=== PATIENT | male | born 1950 | race Caucasian/White ===

== ENCOUNTER 2019-09-02 12:05 | Emergency (ER) | payer OTHER ==
--- OUTSIDE RECORDS SUMMARY | 2019-09-02 12:07 | XMS REPORT | Summary of Care ---
:1950 Author Organization [facility] - [facility] Address [address] [place] [address] Care Team Providers Name Role Phone Pcp, Does Not Have A Primary Care Provider Karlene Bazan PAC Unavailable Allegra Vargas MD Unavailable Reason for Visit Reason Comments Follow-up right knee osteoarthritis (Routine) Status Reason Specialty Diagnoses / Referred By Referred To Procedures Contact Contact Authorized PA-PHYSICIAN Diagnoses Unilateral primary osteoarthritis, right knee 1st orthovisc R knee Ang-Orthopedic Wu Bazan SPRING BENDER / Procedures CONSULT/REFERRAL ORTHOPAEDIC SURGERY [place] ORTHOVISC INJ PER DOSE [place] ARTHROCENTESIS ASPIR&/INJ MAJOR JT/BURSA W/O US FOLLOW-UP VISIT [address] [facility] S, PAC Orthopedic [place], [address] Surgery [address] [facility] C [address] [place] Phone: [phone] Phone: Encounter Details Date Type Department Care Team Description 11/30/2018 Office Visit [facility] Wu Bazan S, Primary oste oarthritis Orthopaedic Surgery- PAC of right knee (Primary [place] [address] [place] [address]x) 2[address] [facility], [facility] [place] [address] [place] [phone] Allergies No Known Allergiesdocumented as of this encounter (statuses as of 11/30/2018) Medications Medication Sig Dispensed Refills Start Date End Date Status atorvastatin 80 mg Take 40 mg by 0 11/18/2015 Active tablet mouth. gabapentin 300 mg Take 300 mg by 0 Active capsule mouth. HUMULIN R U-500, CONC, GIVE 80 UNITS 6 05/01/2016 Active KWIKPEN 500 unit/mL (3 BEFORE BREAKFAST mL) InPn AND DINNER AND INCREASE DIRECTED TDD 220 lisinopril 20 mg tablet Take 20 mg by 0 Active mouth. sennosides-docusate Take 2 tablets by 0 Active sodium 8.6-50 mg per mouth. tablet traMADOL 50 mg tablet Take 50 mg by 0 Active mouth. CIALIS 20 mg tablet TAKE 1 TABLET BY 5 04/30/2016 Active ORAL ROUTE EVERY WEEK NEEDED DULAGLUTIDE (TRULICITY inject under the 0 Active SC) skin weekly. LIRAGLUTIDE (VICTOZA inject under the 0 Active 3-JOLENE SC) skin. Diclofenac Sodium 1 % APPLY 2-4 GRAMS 1 Tube 1 08/04/2018 Active gel TO AFFECTED AREA FOUR TIMES A DAY DICLOFENAC SODIUM 1 % APPLY 2-4 GRAMS 100 g 1 08/06/2018 Active gelIndications: Primary TO AFFECTED AREA osteoarthritis of right FOUR TIMES A DAY knee diclofenac 75 mg EC Take 1 tablet by 60 tablet 1 10/13/2018 Active tablet mouth 2 (two) times daily with meals. Hospital, Clinic, or Ordered Dose Route Frequency Start Date End D ate Status Other Facility Administered Medication sodium hyaluronate 30 mg Intra-articu ONCE 11/30/2018 019 Ended (viscosup) (ORTHOVISC) injection 30 mg documented as of this encounter (statuses as of 11/30/2018) Active Problems Problem Noted Date Acute gastric ulcer 11/18/2015 Chronic kidney disease, stage II (mild) 11/18/2015 Type 2 diabetes mellitus 11/17/2015 Hyperlipidemia 11/17/2015 Hypertension 11/17/2015 Upper gastrointestinal hemorrhage 11/17/2015 documented as of this encounter (statuses as of 11/30/2018) Social History Tobacco Use Types Packs/Day Years Used Date Never Smoker Smokeless Tobacco: Never Used Alcohol Use Drinks/Week oz/Week Comments Not Asked 0 Standard drinks or equivalent 0.0 Sex Assigned at Date Recorded Not on file Job Start Date Occupation Industry Not on file Not on file Not on file Travel History Travel Start Travel End No recent travel history available. documented as of this encounter Last Filed Vital Signs Vital Sign Reading Time Taken Comments Blood Pressure - - Pulse - - Temperature - - Respiratory Rate - - Oxygen Saturation - - Inhaled Oxygen Concentration - - Weight 140.6 kg (310 lb) 11/30/2018 3:16 PM CDT Height 182.9 cm (6') 11/30/2018 3:16 PM CDT Body Mass Index 42.04 11/30/2018 3:16 PM CDT documented in this encounter Progress Notes Wu Bazan, PAC - 11/30/2018 3:30 PM CDT Cc: Chief Complaint Patient presents with Follow-up right knee osteoarthritis Here for 2nd orthovisc injection to the right knee. Jazmine Veras 11/30/2018 3:17 PM Brayan Carrion is a 68 year old male. HPI Allergies Brayan has No Known Allergies. Medications Outpatient Medications Prior to Visit Medication Sig Dispense Refill diclofenac 75 mg EC tablet Take 1 tablet by mouth 2 (two) times daily with meals. 60 tablet 1 DICLOFENAC SODIUM 1 % gel APPLY 2-4 GRAMS TO AFFECTED AREA FOUR TIMES A DAY 100 g 1 Diclofenac Sodium 1 % gel APPLY 2-4 GRAMS TO AFFECTED AREA FOUR TIMES A DAY 1 Tube 1 LIRAGLUTIDE (VICTOZA 3-JOLEEN SC) inject under the skin. atorvastatin 80 mg tablet Take 40 mg by mouth. CIALIS 20 mg tablet TAKE 1 TABLET BY ORAL ROUTE EVERY WEEK NEEDED 5 DULAGLUTIDE (TRULICITY SC) inject under the skin weekly. gabapentin 300 mg capsule Take 300 mg by mouth. HUMULIN R U-500, CONC, KWIKPEN 500 unit/mL (3 mL) InPn GIVE 80 UNITS BEFORE BREAKFAST AND DINNERAND INCREASE DIRECTED TDD 220 6 lisinopril 20 mg tablet Take 20 mg by mouth. sennosides-docusate sodium 8.6-50 mg per tablet Take 2 tablets by mouth. traMADOL 50 mg tablet Take 50 mg by mouth. No facility-administered medications prior to visit. Histories Past Medical History: Diagnosis Date Diabetes mellitus Hyperlipidemia Hypertension Past Surgical History: Procedure Laterality Date JOINT SURGERY REPAIR ROTATOR CUFF,ACUTE Bilateral Social History Socioeconomic History Marital status: Spouse name: Not on file Number of children: Not on file Years of education: Not on file Highest education level: Not on file Occupational History Not on file Social Needs Financial resource strain: Not on file Food insecurity: Worry: Not on file Inability: Not on file Transportation needs: Medical: Not on file Non-medical: Not on file Tobacco Use Smoking status: Never Smoker Smokeless tobacco: Never Used Substance and Sexual Activity Alcohol use: Not on file Drug use: Not on file Sexual activity: Not on file Lifestyle Physical activity: Days per week: Not on file Minutes per session: Not on file Stress: Not on file Relationships Social connections: Talks on phone: Not on file Gets together: Not on file Attends taoist service: Not on file Active member of club or organization: Not on file Attends meetings of clubs or organizations: Not on file Relationship status: Not on file Intimate partner violence: Fear of current or ex partner: Not on file Emotionally abused: Not on file Physically abused: Not on file Forced sexual activity: Not on file Other Topics Concern Not on file Social History Narrative Not on file Family History Problem Relation Age of Onset No Significant Medical Problems Mother No Significant Medical Problems Father Review of Systems Constitutional: Negative. HENT: Negative. Eyes: Negative. Respiratory: Negative. Breasts: Negative. Cardiovascular: Negative. Gastrointestinal: Negative. Genitourinary: Negative. Musculoskeletal: Positive for joint swelling. Skin: Negative. Neurological: Negative. Psychiatric/Behavioral: Negative. Endocrine: Endocrine negative Vital Signs Ht 72" (182.9 cm) | Wt 140.6 kg (310 lb) | BMI 42.04 kg/m Physical Exam Assessment/Plan Primary osteoarthritis of right knee (primary encounter diagnosis) Comment: 2nd of three orthovisc injection series Plan: The knee was examined and marked with ultrasound guidance. The skin was then prepped thoroughly 3 times in a bull's-eye fashion with Betadine and then cleaned with alcohol allowing the alcohol tosoak for 30 seconds. Ethyl chloride anesthetic spray was used to provide cryo-anesthesia. Under ultrasound guidance the needle was advanced into the knee joint behind the fat pad and orthovisc prefilled syringe was injected. The site was cleansed with alcohol then dried with a sterile 4 x 4 and a sterile Band-Aid was applied. Patient tolerated procedure well, no reactions were noted. This is a large joint/intraarticular/intramuscular injection. Post Injection Recommendations but not required: 1. Avoid physical activity for 48 hours following an injection to keep the knee from swelling. 2. Ice your knee if you have any mild pain or swelling near the injection site. 3. Avoid standing on your feet for more than 1 hour at a time during the first 48 hours following the injection. documented in this encounter Plan of Treatment Health Maintenance Due Date Last Done Comments HEPATITIS C (HCV) SCREEN 1950 HgA1C 1951 CREATININE (SERUM) 1961 EYE EXAM 1961 LDL-C 1961 URINE MICROALBUMIN 1961 FOOT EXAM 1969 DTaP,Tdap,and Td Vaccines (1 - Tdap) 1970 COLONOSCOPY 2001 Zoster Recombinant Vaccine (SHINGRIX) (1 of 2) 2001 Medicare Wellness Visit 2016 PNEUMOCOCCAL VACCINES 65+ (1 of 2 - PCV13) 2016 INFLUENZA VACCINE 01/02/2019 documented as of this encounter Results Not on filedocumented in this encounter Visit Diagnoses Diagnosis Primary osteoarthritis of right knee - P rimary Primary localized osteoarthrosis, lower leg documented in this encounter Administered Medications Medication Order MAR Action Action Date Dose Rate Site sodium hyaluronate (viscosup) Given 11/30/2018 3:23 PM CDT 30 m g Right Knee (ORTHOVISC) injection 30 mg 30 mg, Intra-articular, ONCE, 1 dose, Thu11/30/18 at 1630, Routine documented in this encounter Insurance Payer Benefit Plan Subscriber ID Effective Phone Address Typ e / Group Dates AETNA - AETNA [id number] 2016-Prese P O BOX Medic are Adv MANAGED MEDICARE ADV nt [id number] [place] [address] documented as of this encounter
--- OUTSIDE RECORDS SUMMARY | 2019-09-02 12:07 | XMS REPORT ---
:1950 Author Organization [facility] t Address [address] [place] [address] Dr. Raphael [address] [place] [address] Care Team Providers Name Role Phone Unavailable Unavailable Unavailable Problems This patient has no known problems. Allergies, Adverse Reactions, Alerts This patient has no known allergies or adverse reactions. Medications This patient has no known medications.
--- OUTSIDE RECORDS SUMMARY | 2019-09-02 12:07 | XMS REPORT | Summary of Care ---
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 Wu Bazan S, Primary oste oarthritis Orthopaedic Surgery- PAC of right knee (Primary [place] [address] [place] [address]) 2[address] [facility], [facility] [place] [address] [place] [phone] Allergies No Known Allergiesdocumented [...] LIRAGLUTIDE (VICTOZA inject under the 0 Active 3-JOLEEN SC) skin. Diclofenac Sodium 1 % APPLY [...] file Gets together: Not on file Attends scientologist service: Not on file Active member of [...] documented in this encounter Plan of Treatment Date Type Specialty Care Team Description 12/07/2018 Office Visit Orthopedic Surgery Wu Bazan PAC [facility] [place] [address] Health Maintenance Due Date Last Done Comments [...] mg 30 mg, Intra-articular, ONCE, 1 dose, 11/30/18 at 1630, Routine documented in this encounter Insurance Payer Benefit Plan Subscriber ID Effective Phone Address Typ e / Group Dates AETNA - AETNA [id number] 2016-Prese P O BOX Medic are Adv MANAGED MEDICARE ADV nt [id number] [place] [address] documented as of this encounter
--- OUTSIDE RECORDS SUMMARY | 2019-09-02 12:08 | XMS REPORT | Summary of Care ---
:1950 Author Organization [facility] - Health Address [address] [place] [address] Care Team Providers Name Role Phone Pcp, Does Not Have A Primary Care Provider Karlene Bazan PAC Unavailable Allegra Vargas MD Unavailable Encounter Details Date Type Department Care Team Description 05/17/2019 Orders Only [facility] Doctor Unassigned, No [address] [facility] [place] [address] [address] [place] [address] Allergies No Known Allergiesdocumented as of this encounter (statuses as of 06/13/2019) Medications Medication Sig Dispensed Refills Start Date End Date Status atorvastatin 80 mg Take 40 mg by 0 11/18/2015 Active tablet mouth. gabapentin 300 mg Take 300 mg by 0 Active capsule mouth. HUMULIN R U-500, GIVE 80 UNITS 6 05/01/2016 Active CONC, KWIKPEN 500 BEFORE BREAKFAST unit/mL (3 mL) InPn AND DINNER AND INCREASE DIRECTED TDD 220 lisinopril 20 mg Take 20 mg by 0 Active tablet mouth. sennosides-docusate Take 2 tablets by 0 Active sodium 8.6-50 mg per mouth. tablet traMADOL 50 mg tablet Take 50 mg by 0 Active mouth. CIALIS 20 mg tablet TAKE 1 TABLET BY 5 04/30/2016 Active ORAL ROUTE EVERY WEEK NEEDED DULAGLUTIDE inject under the 0 Active (TRULICITY SC) skin weekly. LIRAGLUTIDE (VICTOZA inject under the 0 Active 3-JOLEEN SC) skin. Diclofenac Sodium 1 % Apply to area(s) 100 g 1 04/29/2019 07/28/2019 Active gel daily for 90 days. APPLY 2- 4 GRAMS TO AREA FOUR TIMES A DAY documented as of this encounter (statuses as of 06/13/2019) Active Problems Problem Noted Date Acute gastric ulcer 11/18/2015 Chronic kidney disease, stage II (mild) 11/18/2015 Type 2 diabetes mellitus 11/17/2015 Hyperlipidemia 11/17/2015 Hypertension 11/17/2015 Upper gastrointestinal hemorrhage 11/17/2015 documented as of this encounter (statuses as of 06/13/2019) Social History Tobacco Use Types Packs/Day Years [...] of this encounter Last Filed Vital Signs Not on filedocumented in this encounter Plan of Treatment Health Maintenance Due Date Last Done Comments HEPATITIS C (HCV) SCREEN 1950 HgA1C 1951 CREATININE (SERUM) 1961 EYE EXAM 1961 LDL-C 1961 URINE MICROALBUMIN 1961 DTaP,Tdap,and Td Vaccines (1 - Tdap) 1962 FOOT EXAM 1969 COLONOSCOPY 2001 Zoster Recombinant Vaccine (SHINGRIX) (1 of 2) 2001 Medicare Wellness Visit 2016 PNEUMOCOCCAL VACCINES 65+ (1 of 2 - PCV13) 2016 INFLUENZA VACCINE (#1) 2019 documented as of this encounter Procedures Procedure Name Priority Date/Time Associated Diagnosis Comme nts 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
--- OUTSIDE RECORDS SUMMARY | 2019-09-02 12:08 | XMS REPORT | Summary of Care ---
:1950 Author Organization [facility] - Health Address [address] [place] [address] Care Team Providers Name Role Phone Pcp, Does Not Have A Primary Care Provider Karlene Bazan PAC Unavailable Allegra Vargas MD Unavailable Encounter Details Date Type Department Care Team Description 05/23/2019 Orders Only [facility] Doctor Unassigned, No 301 [facility] [place] [address] [address] [place] [address] Allergies No Known Allergiesdocumented as of this encounter (statuses as of 06/01/2019) Medications Medication Sig Dispensed Refills Start Date [...] as of this encounter (statuses as of 06/01/2019) Active Problems Problem Noted Date Acute gastric ulcer 11/18/2015 Chronic kidney disease, stage II (mild) 11/18/2015 Type 2 diabetes mellitus 11/17/2015 Hyperlipidemia 11/17/2015 Hypertension 11/17/2015 Upper gastrointestinal hemorrhage 11/17/2015 documented as of this encounter (statuses as of 06/01/2019) Social History Tobacco Use Types Packs/Day Years [...] filedocumented in this encounter Plan of Treatment Date Type Specialty Care Team Description 06/03/2019 Office Visit Orthopedic Surgery Kathleen Vargas MD [address] [place] [phone] Health Maintenance Due Date Last Done [...] Name Priority Date/Time Associated Diagnosis Comme nts MEDICATION CORRESPONDENCE 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
--- OUTSIDE RECORDS SUMMARY | 2019-09-02 12:08 | XMS REPORT | Summary of Care ---
:[address] [facility] Address [address] [place] [address] Care Team Providers Name Role Phone Pcp, Does Not Have A Primary Care Provider Karlene Bazan PAC Unavailable Allegra Vargas MD Unavailable Reason for Visit Reason Comments Refill Request Encounter Details Date Type Department Care Team Description 12/16/2018 Refill [facility] Orthopaedic George Vargas MD Refill Request Surgery- [place] [address] [facility], [place] [address] [place] [address] [place] [address] [phone] Allergies No Known Allergiesdocumented as of this encounter (statuses as of 12/16/2018) Medications Medication Sig Dispensed Refills Start Date End Date Status atorvastatin 80 mg Take 40 mg by 0 11/18/2015 Active tablet mouth. gabapentin 300 mg Take 300 mg by 0 Active capsule mouth. HUMULIN R U-500, GIVE 80 UNITS 6 05/01/2016 Active CONC, KWIKPEN 500 BEFORE unit/mL (3 mL) InPn BREAKFAST AND DINNER AND INCREASE DIRECTED TDD 220 lisinopril 20 mg Take 20 mg by 0 Active tablet mouth. sennosides-docusate Take 2 tablets 0 Active sodium 8.6-50 mg per by mouth. tablet traMADOL 50 mg Take 50 mg by 0 A ctive tablet mouth. CIALIS 20 mg tablet TAKE 1 TABLET 5 04/30/2016 Active BY ORAL ROUTE EVERY WEEK NEEDED DULAGLUTIDE inject under 0 Acti ve (TRULICITY SC) the skin weekly. LIRAGLUTIDE (VICTOZA inject under 0 Active 3-JOLEEN SC) the skin. DICLOFENAC SODIUM 1 APPLY 2-4 GRAMS 100 g 1 08/06/2018 Active % gelIndications: TO AFFECTED Primary AREA FOUR TIMES osteoarthritis of A DAY right knee diclofenac 75 mg EC Take 1 tablet 60 tablet 1 10/13/2018 Active tablet by mouth 2 (two) times daily with meals. DICLOFENAC SODIUM 1 APPLY 2-4 GRAMS 1 Tube 1 12/16/2018 Active % gelIndications: TO AFFECTED Primary AREA FOUR TIMES osteoarthritis of A DAY right knee Diclofenac Sodium 1 APPLY 2-4 GRAMS 1 Tube 1 08/04/2018 Discontinued % gel TO AFFECTED 9 AREA FOUR TIMES A DAY documented as of this encounter (statuses as of 12/16/2018) Active Problems Problem Noted Date Acute gastric ulcer 11/18/2015 Chronic kidney disease, stage II (mild) 11/18/2015 Type 2 diabetes mellitus 11/17/2015 Hyperlipidemia 11/17/2015 Hypertension 11/17/2015 Upper gastrointestinal hemorrhage 11/17/2015 documented as of this encounter (statuses as of 12/16/2018) Social History Tobacco Use Types Packs/Day Years [...] (#1) 2019 documented as of this encounter Results Not on filedocumented in this encounter Visit Diagnoses Diagnosis Primary osteoarthritis of right knee - P rimary Primary localized osteoarthrosis, lower leg documented in this encounter Insurance Payer Benefit Plan Subscriber ID Effective Phone Address Typ e / Group Dates AETNA - AETNA [id number] 2016-Prese P O BOX Medic are Adv MANAGED MEDICARE ADV nt [id number] [place] [address] documented as of this encounter
--- OUTSIDE RECORDS SUMMARY | 2019-09-02 12:08 | XMS REPORT | Summary of Care ---
:[address] [facility] - [facility] Address [address] [place] [address] Care Team Providers Name Role Phone Pcp, Does Not Have A Primary Care Provider Karlene Bazan PAC Unavailable Allegra Vargas MD Unavailable Reason for Visit Reason Comments Follow-up Knee Pain INJECTION 3rd orthovisc injection righ t knee (Routine) Status Reason Specialty Diagnoses / Procedures Referred By R eferred To Contact Contact Closed PA-PHYSICIAN Diagnoses Unilateral primary osteoarthritis, right knee 1st orthovisc R knee Ang-Orthopedic Wu Bazan, RELAY MAN / Procedures CONSULT/REFERRAL ORTHOPAEDIC SURGERY [place] ORTHOVISC INJ PER DOSE [place] ARTHROCENTESIS ASPIR&/INJ MAJOR JT/BURSA W/O US FOLLOW-UP VISIT 2[address] [facility] Orthopedic Surgery [place], [facility] [address] [facility] [place] [phone] Phone: Fax: Encounter Details Date Type Department Care Team Description 12/07/2018 Office Visit [facility] Wu Bazan, Primary oste oarthritis Orthopaedic Surgery- PAC of right knee (Primary [place] [address]) [address] [facility] [address] [facility] [address] [facility] [place] [phone] Allergies No Known Allergiesdocumented as of this encounter (statuses as of 12/07/2018) Medications Medication Sig Dispensed Refills Start Date [...] Medication sodium hyaluronate 30 mg Intra-articu ONCE 12/07/2018 019 Ended (viscosup) (ORTHOVISC) injection 30 mg documented as of this encounter (statuses as of 12/07/2018) Active Problems Problem Noted Date Acute gastric ulcer 11/18/2015 Chronic kidney disease, stage II (mild) 11/18/2015 Type 2 diabetes mellitus 11/17/2015 Hyperlipidemia 11/17/2015 Hypertension 11/17/2015 Upper gastrointestinal hemorrhage 11/17/2015 documented as of this encounter (statuses as of 12/07/2018) Social History Tobacco Use Types Packs/Day Years [...] Sign Reading Time Taken Comments Blood Pressure 106/65 12/07/2018 1:46 PM CDT Pulse - - Temperature - - Respiratory Rate - - Oxygen Saturation - - Inhaled Oxygen Concentration - - Weight 140.6 kg (310 lb) 12/07/2018 1:46 PM CDT Height 182.9 cm (6') 12/07/2018 1:46 PM CDT Body Mass Index 42.04 12/07/2018 1:46 PM CDT documented in this encounter Progress Notes Wu Bazan, PAC - 12/07/2018 2:00 PM CDT Cc: Brayan Carrion is a 68 year old male Chief Complaint Patient presents with Follow-up Knee Pain INJECTION 3rd orthovisc injection right knee Vitals: 12/07/18 1346 Weight: 140.6 kg (310 lb) Height: 72" (182.9 cm) [facility] [address] [place] [address] Patient coming in for 3rd orthovisc injection right knee All Vitals taken, allergies and all medications reviewed, fall risk assessed. CHAZ HSU MA 12/07/2018 1:47 PM Brayan Carrion is a 68 year [...] file Gets together: Not on file Attends amish service: Not on file Active member of [...] of right knee (primary encounter diagnosis) Comment: 3rd of 3 injection series Plan: The knee was examined [...] Action Date Dose Rate Site sodium hyaluronate Given by Provider 12/07/2018 1:48 PM 30 mg Right Knee (viscosup) (ORTHOVISC) CDT injection 30 mg 30 mg, Intra-articular, ONCE, 1 dose, Thu12/07/18 at 1500, Routine documented in this encounter Insurance Payer Benefit Plan Subscriber ID Effective Phone Address Typ e / Group Dates AETNA - AETNA [id number] 2016-Prese P O BOX Medic are Adv MANAGED MEDICARE ADV nt [id number] [place] [address] documented as of this encounter
--- OUTSIDE RECORDS SUMMARY | 2019-09-02 12:08 | XMS REPORT | Summary of Care ---
:1950 Author Organization [facility] - [facility] Address [address] [place] [address] Care Team Providers Name Role Phone Pcp, [...] 1st orthovisc R knee Ang-Orthopedic Wu Bazan, TOWN MARSHAL / Procedures CONSULT/REFERRAL ORTHOPAEDIC SURGERY LA ORTHOVISC INJ PER DOSE LA ARTHROCENTESIS ASPIR&/INJ MAJOR JT/BURSA W/O US FOLLOW-UP VISIT 2[address] [facility] Orthopedic Surgery Joe, [facility] [address] [facility] [place] [phone] Phone: Fax: Encounter Details Date Type Department Care Team Description 12/07/2018 Office Visit [facility] Wu Bazan, Primary oste oarthritis Orthopaedic Surgery- PAC of right knee (Primary [place] [address]) 2326 [facility] Joe [facility] [place] [facility] [place] [phone] Allergies No Known Allergiesdocumented [...] kg (310 lb) Height: 72" (182.9 cm) [facility] [address] [place] [address] Patient coming in for 3rd orthovisc injection [...] file Gets together: Not on file Attends mormonism service: Not on file Active member of [...] e / Group Dates AETNA - AETNA [id number] 2016-Prese P O BOX Medic are Adv MANAGED MEDICARE ADV nt [id number] [place] [address] documented as of this encounter
--- OUTSIDE RECORDS SUMMARY | 2019-09-02 12:09 | XMS REPORT | Summary of Care ---
:1950 Author Organization [facility] Address [address] [place] [address] Care Team Providers Name Role Phone Pcp, Does Not Have A Primary Care Provider Karlene Bazan PAC Unavailable Allegra Vargas MD Unavailable Reason for Visit Reason Comments Refill Request Encounter Details Date Type Department Care Team Description 06/21/2019 Refill [facility] Orthopaedic George Vargas MD Refill Request Surgery- [place] [address] [facility], [place] [address] [place] [address] [phone] Allergies No Known Allergiesdocumented as of this encounter (statuses as of 06/21/2019) Medications Medication Sig Dispensed Refills Start Date [...] under 0 Active 3-JOLEEN SC) the skin. clopidogreL 75 mg Take 75 mg by 0 Active tablet mouth. insulin detemir inject 40 Units 0 Active U-100 100 unit/mL under the skin. injection psyllium (METAMUCIL Take 1 Packet 0 Active FIBER SINGLES) 3.4 by mouth. gram packet diclofenac 75 mg EC TAKE 1 TABLET 0 04/26/2019 Active tablet BY MOUTH TWICE DAILY WITH MEALS FOR 30 DAYS DICLOFENAC SODIUM 1 APPLY 2-4 GRAMS 100 g 0 06/21/2019 Active % gelIndications: TO AFFECTED Primary AREA(S) FOUR osteoarthritis of TIMES A DAY right knee Diclofenac Sodium 1 Apply to 100 g 1 04/29/2019 Discontinued % gel area(s) daily 0 for 90 days. APPLY 2- 4 GRAMS TO AREA FOUR TIMES A DAY documented as of this encounter (statuses as of 06/21/2019) Active Problems Problem Noted Date Acute gastric ulcer 11/18/2015 Chronic kidney disease, stage II (mild) 11/18/2015 Type 2 diabetes mellitus 11/17/2015 Hyperlipidemia 11/17/2015 Hypertension 11/17/2015 Upper gastrointestinal hemorrhage 11/17/2015 documented as of this encounter (statuses as of 06/21/2019) Social History Tobacco Use Types Packs/Day Years [...] Treatment Date Type Specialty Care Team Description 06/27/2019 Office Visit Orthopedic Surgery Wu Bazan, PAC [address] [facility]5 [phone] Health Maintenance Due Date Last Done [...] e / Group Dates AETNA - AETNA [id number] 2016-[place] P O BOX Medic are Adv MANAGED MEDICARE ADV nt [id number] [place] [address] documented as of this encounter
--- OUTSIDE RECORDS SUMMARY | 2019-09-02 12:09 | XMS REPORT | Summary of Care ---
:1950 Author Organization [facility] - [facility] Address [address] [place] [address] Care Team Providers Name Role Phone Pcp, Does Not Have A Primary Care Provider Karlene Bazan PAC Unavailable Allegra Vargas MD Unavailable Reason for Visit Reason Comments Follow-up Hip Pain INJECTION 1st orthovisc injection righ t knee (Routine) Status Reason Specialty Diagnoses / Referred By Referred To Procedures Contact Contact Authorized PA-PHYSICIAN Diagnoses Unilateral primary osteoarthritis, right knee 1st Orthovisc Injection Right Knee George Vargas Brett CORRECTIONAL CORPORAL / Procedures CONSULT/REFERRAL ORTHOPAEDIC SURGERY [place] ORTHOVISC INJ PER DOSE AR ARTHROCENTESIS ASPIR&/INJ MAJOR JT/BURSA W/O US FOLLOW-UP VISIT MD Allegra S, PAC Orthopedic [address] [facility] [address] [place], [place] Phone: [phone] Phone: Encounter Details Date Type Department Care Team Description 06/20/2019 Office Visit [facility] Wu Bazan, Primary oste oarthritis Orthopaedic Surgery- PAC of right knee (Primary [place] [address]) [address] [place] [address] [place] [phone] Allergies No Known Allergiesdocumented as of this encounter (statuses as of 06/21/2019) Medications Medication Sig Dispensed Refills Start Date End Date Status atorvastatin 80 mg Take 40 mg by 0 11/18/2015 Active tablet mouth. gabapentin 300 mg Take 300 mg by 0 Active capsule mouth. HUMULIN R U-500, GIVE 80 UNITS 6 05/01/2016 Active CONC, KWIKPEN 500 BEFORE unit/mL (3 mL) BREAKFAST AND InPn DINNER AND INCREASE DIRECTED TDD 220 lisinopril 20 mg Take 20 mg by 0 Active tablet mouth. sennosides-docusat Take 2 tablets 0 Active e sodium 8.6-50 mg by mouth. per tablet traMADOL 50 mg Take 50 mg by 0 A ctive tablet mouth. CIALIS 20 mg TAKE 1 TABLET 5 04/30/2016 Ac tive tablet BY ORAL ROUTE EVERY WEEK NEEDED DULAGLUTIDE inject under 0 Acti ve (TRULICITY SC) the skin weekly. LIRAGLUTIDE inject under 0 Acti ve (VICTOZA 3-JOLEEN SC) the skin. clopidogreL 75 mg Take 75 mg by 0 Active tablet mouth. insulin detemir inject 40 Units 0 Active U-100 100 unit/mL under the skin. injection psyllium Take 1 Packet 0 Active (METAMUCIL FIBER by mouth. SINGLES) 3.4 gram packet diclofenac 75 mg TAKE 1 TABLET 0 04/26/2019 Active EC tablet BY MOUTH TWICE DAILY WITH MEALS FOR 30 DAYS Diclofenac Sodium Apply to 100 g 1 04/29/2019 06/21/2019 Discontinued 1 % gel area(s) daily for 90 days. APPLY 2- 4 GRAMS TO AREA FOUR TIMES A DAY Hospital, Clinic, or Ordered Dose Route Frequency Start Date End D ate Status Other Facility Administered Medication sodium hyaluronate 30 mg Intra-articu ONCE 06/20/2019 020 Ended (viscosup) (ORTHOVISC) injection 30 mg documented [...] Sign Reading Time Taken Comments Blood Pressure 111/69 06/20/2019 1:27 PM BOWLING ALLEY MANAGER Pulse - - Temperature - - Respiratory Rate - - Oxygen Saturation - - Inhaled Oxygen Concentration - - Weight 140.6 kg (310 lb) 06/20/2019 1:27 PM BOWLING ALLEY MANAGER Height 182.9 cm (6') 06/20/2019 1:27 PM BOWLING ALLEY MANAGER Body Mass Index 42.04 06/20/2019 1:27 PM BOWLING ALLEY MANAGER documented in this encounter Progress Notes Wu Bazan, PAC - 06/20/2019 1:30 PM CST Cc: Chief Complaint Patient presents with Follow-up Hip Pain INJECTION 1st orthovisc injection right knee Brayan Carrion is a 69 year old male. HPI Allergies Brayan has No Known Allergies. Medications Outpatient Medications Prior to Visit Medication Sig Dispense Refill clopidogreL 75 mg tablet Take 75 mg by mouth. diclofenac 75 mg EC tablet TAKE 1 TABLET BY MOUTH TWICE DAILY WITH MEALS FOR 30 DAYS insulin detemir U-100 100 unit/mL injection inject 40 Units under the skin. psyllium (METAMUCIL FIBER SINGLES) 3.4 gram packet Take 1 Packet by mouth. Diclofenac Sodium 1 % gel Apply to area(s) daily for 90 days. APPLY 2- 4 GRAMS TO AREA FOUR TIMES A DAY 100 g 1 LIRAGLUTIDE (VICTOZA 3-JOLEEN SC) inject under [...] file Gets together: Not on file Attends zoroastrian service: Not on file Active member of [...] Significant Medical Problems Father Review of Systems Vital Signs BP 111/69 | Ht 72" (182.9 cm) | Wt 140.6 kg (310 lb) | BMI 42.04 kg/m Physical Exam Assessment/Plan 1. Primary osteoarthritis of right knee Here for first of 3 Orthovisc injections in the right knee The knee was examined and marked with ultrasound guidance. The skin was then prepped thoroughly 3 times in a bull's-eye fashion with Betadine and then cleaned with alcohol allowing the alcohol to soak for 30 seconds. Ethyl chloride anesthetic spray was used to provide cryo-anesthesia. Under ultrasoundguidance the needle was advanced into the knee joint behind the fat pad and Orthovisc prefilled syringe was injected. The site was cleansed with alcohol then dried with a sterile 4 x 4 and a sterile Band-Aid was applied. Patient tolerated procedure well, no reactions were noted. This is a large joint/ intraarticular/intramuscular injection. Post Injection Recommendations but not required: 1. Avoid physical activity for 48 hours following an injection to keep the knee from swelling. 2. Ice your knee if you have any mild pain or swelling near the injection site. 3. Avoid standing on your feet for more than 1 hour at a time during the first 48 hours following the injection. ING ALLEY MANAGER documented in this encounter Plan of Treatment Date Type Specialty Care Team Description 06/27/2019 Office Visit Orthopedic Surgery Wu Bazan PAC [address] [place], [place] [phone] Health Maintenance Due Date [...] Rate Site sodium hyaluronate Given by Provider 06/20/2019 1:29 PM 30 mg Right Knee (viscosup) (ORTHOVISC) BOWLING ALLEY MANAGER injection 30 mg 30 mg, Intra-articular, ONCE, 1 dose, 06/20/19 at 1430, Routine documented in this encounter Insurance Payer Benefit Plan Subscriber ID Effective Phone Address Typ e / Group Dates AETNA - AETNA [id number] 2016-Prese P O BOX Medic are Adv MANAGED MEDICARE ADV nt [id number] [place] [address] documented as of this encounter
--- OUTSIDE RECORDS SUMMARY | 2019-09-02 12:10 | XMS REPORT | Summary of Care ---
:1950 Author Organization [facility] Address [address] [place] [address] Care Team Providers Name Role Phone Pcp, Does Not Have A Primary Care Provider Karlene Bazan PAC Unavailable Allegra Vargas MD Unavailable Reason for Visit Reason Comments Follow-up Follow up visit on right kne e pain, wanting orthovisc (Routine) Status Reason Specialty Diagnoses / Procedures Referred By R eferred To Contact Contact Closed ORT-ORTHOPAEDIC Diagnoses Knee pain requesting orthovisc George Vargas Craig SURGERY / Procedures CONSULT/REFERRAL ORTHOPAEDIC SURGERY [place] ORTHOVISC INJ PER DOSE [place] ARTHROCENTESIS ASPIR&/INJ MAJOR JT/BURSA W/O US FOLLOW-UP VISIT MD Allegra Dinh MD Orthopedic Surgery [address] [place] [phone] Phone: Fax: Encounter Details Date Type Department Care Team Description 06/03/2019 Office Visit [facility] George Vargas Primary oste oarthritis Orthopaedic Surgery- MD Allegra of right knee (Primary [place] [address]) [address] [place] [address] [place] [phone] Allergies No Known Allergiesdocumented as of this encounter (statuses as of 06/22/2019) Medications Medication Sig Dispensed Refills Start Date [...] as of this encounter (statuses as of 06/22/2019) Active Problems Problem Noted Date Acute gastric ulcer 11/18/2015 Chronic kidney disease, stage II (mild) 11/18/2015 Type 2 diabetes mellitus 11/17/2015 Hyperlipidemia 11/17/2015 Hypertension 11/17/2015 Upper gastrointestinal hemorrhage 11/17/2015 documented as of this encounter (statuses as of 06/22/2019) Social History Tobacco Use Types Packs/Day Years [...] Reading Time Taken Comments Blood Pressure 111/69 06/03/2019 8:07 AM WIRE PULLER Pulse 101 06/03/2019 8:07 AM WIRE PULLER Temperature - - Respiratory Rate 18 06/03/2019 8:07 AM WIRE PULLER Oxygen Saturation - - Inhaled Oxygen Concentration - - Weight 140.6 kg (310 lb) 06/03/2019 8:07 AM WIRE PULLER Height 182.9 cm (6') 06/03/2019 8:07 AM WIRE PULLER Body Mass Index 42.04 06/03/2019 8:07 AM WIRE PULLER documented in this encounter Progress Notes George Vargas MD - 06/03/2019 8:00 AM CST Brayan Carrion is a 69 year old male Chief Complaint Patient presents with Follow-up Follow up visit on right knee pain, wanting orthovisc Vitals: 06/03/19 0807 BP: 111/69 BP Location: Left arm Patient Position: Sitting BP CUFF SIZE: Adult Large Pulse: 101 Resp: 18 Weight: 310 lb (140.6 kg) Height: 6' (1.829 m) [facility] [address] [place] [address] All Vitals taken, allergies and all medications reviewed, fall risk assessed. Pain level 8/10. PEEWEE DAVIS MA 06/03/2019 8:10 AM Brayan Carrion is a 69 year old male. Requesting orthovisc injections. He has had them in the past with excellent results. Knee Pain The incident occurred more than 1 week ago. The incident occurred at home. There was no injury mechanism. The pain is present in the right knee. The quality of the pain is described as aching, burning and stabbing. The pain is at a severity of 8/10. The pain is severe. The pain has been worsening since onset. Associated symptoms include an inability to bear weight. He reports no foreign bodies present. The symptoms are aggravated by weight bearing and movement. He has tried acetaminophen, immobilization, ice, NSAIDs, non-weight bearing and rest for the symptoms. The treatment provided no relief. Allergies Brayan has No Known Allergies. Medications [...] file Gets together: Not on file Attends spiritism service: Not on file Active member of [...] Negative. Endocrine: Endocrine negative Vital Signs Ht 6' (1.829 m) | Wt 310 lb (140.6 kg) | BMI 42.04 kg/m Physical Exam Musculoskeletal: Right knee: He exhibits decreased range of motion, swelling, effusion and abnormal alignment. Tenderness found. Medial joint line tenderness noted. General: Well-developed well-nourished oriented to person place and time HEENT normocephalic atraumatic atraumatic pupils equal round reactive to light extraocular muscles intact Cervical thoracic and lumbar spine without focal deficit normal kyphosis and lordosis Chest clear to auscultation and percussion Cardiovascular regular rate and rhythm without gallop rub or murmur soft without organomegaly Normal bowel sounds Neurologic: Focal myotome or dermatomal deficits Vascular: Intact symmetrical bilateral upper and lower extremities Skin without stasis varicosities or breakdown Extremities without cyanosis clubbing or edema Lymphatics no peripheral lymphedema Psych normal mood and affect. Neurovascular function is intact. To include brisk capillary refill warm pink skin active motor function and sensory function intact. Positive crepitus Nursing note and vitals reviewed. Assessment/Plan Diagnosis right knee osteoarthritis Plan will order orthovisc. Follow up when approved. PULLER documented in this encounter Plan of Treatment Date Type Specialty Care Team Description 06/27/2019 Office Visit Orthopedic Surgery Wu Bazan, PAC [address] [place] [phone] Health Maintenance Due Date Last [...] e / Group Dates AETNA - AETNA [id number] 2016-Prese P O BOX Medic are Adv MANAGED MEDICARE ADV nt [id number] [place] [address] documented as of this encounter"
--- OUTSIDE RECORDS SUMMARY | 2019-09-02 12:10 | XMS REPORT | Summary of Care ---
:1950 Author Organization [facility] - [facility] Address [address] [place] [address] Care Team Providers Name Role Phone Pcp, Does Not Have A Primary Care Provider Karlene Bazan PAC Unavailable Allegra Vargas MD Unavailable Reason for Visit Reason Comments Rx Concern/Question Encounter Details Date Type Department Care Team Description 06/20/2019 Telephone [facility] Orthopaedic George Vargas , Rx Concern/Question Surgery- Antione LITTLE 2[address] [facility], [facility] [address] [facility] [place] [address] [place], [place] [phone] [phone] Allergies No Known Allergiesdocumented as of this [...] under the 0 Active 3-JOLEEN SC) skin. clopidogreL 75 mg Take 75 mg by 0 Active tablet mouth. insulin detemir U-100 inject 40 Units 0 Active 100 unit/mL injection under the skin. psyllium (METAMUCIL Take 1 Packet by 0 Active FIBER SINGLES) 3.4 mouth. gram packet diclofenac 75 mg EC TAKE 1 TABLET BY 0 04/26/2019 Active tablet MOUTH TWICE DAILY WITH MEALS FOR 30 DAYS documented as of this encounter (statuses as [...] 06/27/2019 Office Visit Orthopedic Surgery Wu Bazan S, PAC [address] [place] [phone] Health Maintenance Due Date Last Done [...] e / Group Dates AETNA - AETNA [id number] 2016-Prese P O BOX Medic are Adv MANAGED MEDICARE ADV nt [id number] [place] [address] documented as of this encounter
--- OUTSIDE RECORDS SUMMARY | 2019-09-02 12:10 | XMS REPORT | Summary of Care ---
:1950 Author Organization [facility] - [facility] Address [address] [place] [address] Care Team Providers Name Role Phone Pcp, Does Not Have A Primary Care Provider Karlene Bazan Unavailable Allegra Vargas MD Unavailable Encounter Details Date Type Department Care Team Description 06/14/2019 Orders Only [facility] Doctor Unassigned, No [address] [facility] [place] [address] [address] [place] [address] Allergies No Known Allergiesdocumented as of this [...] Team Description 06/27/2019 Office Visit Orthopedic Surgery uW Bazan S, PAC [address] [phone] Health Maintenance Due Date Last Done [...] Associated Diagnosis Comme nts MEDICATION CORRESPONDENCE Routine 06/14/2019 12:01 AM SHODDY MILL WORKER documented in this encounter Results Not on filedocumented in this encounter Insurance Payer Benefit Plan Subscriber ID Effective Phone Address Typ e / Group Dates AETNA - AETNA [id number] 2016-Prese P O BOX Medic are Adv MANAGED MEDICARE ADV nt [id number] [place] [address] documented as of this encounter
--- OUTSIDE RECORDS SUMMARY | 2019-09-02 12:10 | XMS REPORT | Summary of Care ---
:1950 Author Organization [facility] - [facility] Address [address] [place] [address] Care Team Providers Name Role Phone Pcp, [...] Orthovisc Injection Right Knee George Vargas Brett PROGRAM DIRECTOR SCOUTING / Procedures CONSULT/REFERRAL ORTHOPAEDIC SURGERY [place] ORTHOVISC INJ PER DOSE [place] ARTHROCENTESIS ASPIR&/INJ MAJOR JT/BURSA W/O US FOLLOW-UP VISIT MD Allegra S, PAC Orthopedic [address] [facility] [address] [place] Phone: [phone] Phone: Encounter Details Date Type Department Care Team Description 06/20/2019 Office Visit [facility] Wu Bazan, Primary oste oarthritis Orthopaedic Surgery- PAC of right knee (Primary [place] [address]) [address] [place] [place] [address] [place] [phone] Allergies No Known Allergiesdocumented as of this [...] Comments Blood Pressure 111/69 06/20/2019 1:27 PM OUTREACH COORDINATOR Pulse - - Temperature - - Respiratory Rate - - Oxygen Saturation - - Inhaled Oxygen Concentration - - Weight 140.6 kg (310 lb) 06/20/2019 1:27 PM OUTREACH COORDINATOR Height 182.9 cm (6') 06/20/2019 1:27 PM OUTREACH COORDINATOR Body Mass Index 42.04 06/20/2019 1:27 PM OUTREACH COORDINATOR documented in this encounter Progress Notes Wu [...] file Gets together: Not on file Attends sikhism service: Not on file Active member of [...] the first 48 hours following the injection. EACH COORDINATOR documented in this encounter Plan of Treatment Date Type Specialty Care Team Description 06/27/2019 Office Visit Orthopedic Surgery Wu Bazan PAC [address] [place], [place] [phone] Health Maintenance Due Date [...] PM 30 mg Right Knee (viscosup) (ORTHOVISC) OUTREACH COORDINATOR injection 30 mg 30 mg, Intra-articular, ONCE, 1 dose, 06/20/19 at 1430, Routine documented in this encounter Insurance Payer Benefit Plan Subscriber ID Effective Phone Address Typ e / Group Dates AETNA - AETNA [id number] 2016-Prese P O BOX Medic are Adv MANAGED MEDICARE ADV nt [id number] [place] [address] documented as of this encounter
--- OUTSIDE RECORDS SUMMARY | 2019-09-02 12:11 | XMS REPORT | Summary of Care ---
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 / Procedures CONSULT/REFERRAL ORTHOPAEDIC SURGERY [place] ORTHOVISC INJ PER DOSE [place] ARTHROCENTESIS ASPIR&/INJ MAJOR JT/BURSA W/O US FOLLOW-UP VISIT MD Allegra S, PAC Orthopedic [address] [facility] [address] [place], [place] Phone: [phone] Phone: Encounter Details Date Type Department Care Team Description 06/27/2019 Office Visit [facility] Wu Bazan, Primary oste oarthritis Orthopaedic Surgery- PAC of right knee (Primary [place] [address]) [address] [place] [address] [place] [address] Allergies No Known Allergiesdocumented as of this encounter (statuses as of 06/27/2019) Medications Medication Sig Dispensed Refills Start Date [...] Packet by 0 Active FIBER SINGLES) 3.4 gram mouth. packet diclofenac 75 mg EC TAKE 1 TABLET BY 0 04/26/2019 Active tablet MOUTH TWICE DAILY WITH MEALS FOR 30 DAYS DICLOFENAC SODIUM 1 % APPLY 2-4 GRAMS 100 g 0 06/21/2019 Active gelIndications: Primary TO AFFECTED osteoarthritis of right AREA(S) FOUR knee TIMES A DAY Hospital, Clinic, or Ordered Dose Route Frequency Start Date End D ate Status Other Facility Administered Medication sodium hyaluronate 30 mg Intra-articu ONCE 06/27/2019 020 Ended (viscosup) (ORTHOVISC) injection 30 mg documented as of this encounter (statuses as of 06/27/2019) Active Problems Problem Noted Date Acute gastric ulcer 11/18/2015 Chronic kidney disease, stage II (mild) 11/18/2015 Type 2 diabetes mellitus 11/17/2015 Hyperlipidemia 11/17/2015 Hypertension 11/17/2015 Upper gastrointestinal hemorrhage 11/17/2015 documented as of this encounter (statuses as of 06/27/2019) Social History Tobacco Use Types Packs/Day Years [...] - - Weight 140.6 kg (310 lb) 06/27/2019 1:16 PM SOLUTIONS DEVELOPER Height 182.9 cm (6') 06/27/2019 1:16 PM SOLUTIONS DEVELOPER Body Mass Index 42.04 06/27/2019 1:16 PM SOLUTIONS DEVELOPER documented in this encounter Progress Notes Wu Bazan S, PAC - 06/27/2019 1:30 PM CST Brayan Carrion is a 69 year old male Chief Complaint Patient presents with INJECTION 2nd orthovisic injection right knee Vitals: 06/27/19 1316 Weight: 140.6 kg (310 lb) Height: 72" (182.9 cm) [facility] [address] [place] [address] All Vitals taken, allergies and all medications reviewed, fall risk assessed. Pain level 0/10. PEEWEE DAVIS MA 06/27/2019 1:16 PM Brayan Carrion is a 69 year old male. HPI Allergies Brayan has No Known Allergies. Medications Outpatient Medications Prior to Visit Medication Sig Dispense Refill DICLOFENAC SODIUM 1 % gel APPLY 2-4 GRAMS TO AFFECTED AREA(S) FOUR TIMES A DAY 100 g 0 clopidogreL 75 mg tablet Take 75 mg by mouth. diclofenac 75 mg EC tablet TAKE 1 TABLET BY MOUTH TWICE DAILY WITH MEALS FOR 30 DAYS insulin detemir U-100 100 unit/mL injection inject 40 Units under the skin. psyllium (METAMUCIL FIBER SINGLES) 3.4 gram packet Take 1 Packet by mouth. LIRAGLUTIDE (VICTOZA 3-JOLEEN SC) inject under the [...] file Gets together: Not on file Attends restoration service: Not on file Active member of [...] (primary encounter diagnosis) Comment: 2nd of three injection series to the Right knee Plan: The knee was examined and marked [...] the first 48 hours following the injection. TIONS DEVELOPER documented in this encounter Plan of Treatment Date Type Specialty Care Team Description 07/04/2019 Office Visit Orthopedic Surgery Wu Bazan PAC [address] [place], [place] [address] Health Maintenance Due Date Last Done [...] Rate Site sodium hyaluronate Given by Provider 06/27/2019 1:20 PM 30 mg Right Knee (viscosup) (ORTHOVISC) SOLUTIONS DEVELOPER injection 30 mg 30 mg, Intra-articular, ONCE, 1 dose, 06/27/19 at 1430, Routine documented in this encounter Insurance Payer Benefit Plan Subscriber ID Effective Phone Address Typ e / Group Dates AETNA - AETNA [id number] 2016-Prese P O BOX Medic are Adv MANAGED MEDICARE ADV nt [id number] [place] [address] documented as of this encounter
--- OUTSIDE RECORDS SUMMARY | 2019-09-02 12:11 | XMS REPORT | Summary of Care ---
:1950 Author Organization [facility] Address [address] [place] [address] Care Team Providers Name Role Phone Pcp, [...] Craig SURGERY / Procedures CONSULT/REFERRAL ORTHOPAEDIC SURGERY [place] ORTHOVISC INJ PER DOSE [place] ARTHROCENTESIS ASPIR&/INJ MAJOR JT/BURSA W/O US FOLLOW-UP VISIT MD Allegra Dinh MD Orthopedic Surgery [address] [place] [address] [place] [phone] Phone: Fax: Encounter Details Date Type Department Care Team Description 06/03/[address] [facility] George Vargas Primary oste oarthritis Orthopaedic Surgery- MD Allegra of right knee (Primary [place] [address]) [address] [place] [address] [place] [phone] Allergies No Known Allergiesdocumented [...] Comments Blood Pressure 111/69 06/03/2019 8:07 AM FRENCH INSTRUCTOR Pulse 101 06/03/2019 8:07 AM FRENCH INSTRUCTOR Temperature - - Respiratory Rate 18 06/03/2019 8:07 AM FRENCH INSTRUCTOR Oxygen Saturation - - Inhaled Oxygen Concentration - - Weight 140.6 kg (310 lb) 06/03/2019 8:07 AM FRENCH INSTRUCTOR Height 182.9 cm (6') 06/03/2019 8:07 AM FRENCH INSTRUCTOR Body Mass Index 42.04 06/03/2019 8:07 AM FRENCH INSTRUCTOR documented in this encounter Progress Notes George [...] lb (140.6 kg) Height: 6' (1.829 m) [facility] [address] [place] [address] All Vitals taken, allergies and all medications [...] file Gets together: Not on file Attends restorationism service: Not on file Active member of [...] will order orthovisc. Follow up when approved. CH INSTRUCTOR documented in this encounter Plan of Treatment Date Type Specialty Care Team Description 06/27/2019 Office Visit Orthopedic Surgery Wu Bazan, PAC [address] [place] [address] Health Maintenance Due Date Last [...] e / Group Dates AETNA - AETNA [id number] 2016-Prese P O BOX Medic are Adv MANAGED MEDICARE ADV nt [id number] [place] [address] documented as of this encounter"
--- OUTSIDE RECORDS SUMMARY | 2019-09-02 12:11 | XMS REPORT | Summary of Care ---
:1950 Author Organization [facility] - [facility] Address [address] [place] [address] Care Team Providers Name Role Phone Pcp, Does Not Have A Primary Care Provider Karlene Bazan PAC Unavailable Allegra Vargas MD Unavailable Reason for Visit Reason Comments INJECTION 2nd orthovisic injection rig ht knee (Routine) Status Reason Specialty Diagnoses / Referred By Referred To Procedures Contact Contact Authorized PA-PHYSICIAN Diagnoses Unilateral primary osteoarthritis, right knee 1st Orthovisc Injection Right Knee George Vargas Brett CAKE FROSTER / Procedures CONSULT/REFERRAL ORTHOPAEDIC SURGERY [place] ORTHOVISC INJ PER DOSE [place] ARTHROCENTESIS ASPIR&/INJ MAJOR JT/BURSA W/O US FOLLOW-UP VISIT MD Allegra S, PAC Orthopedic [address] 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 Height 182.9 cm (6') 06/27/2019 1:16 PM METAL BUILDING ASSEMBLER Body Mass Index 42.04 06/27/2019 1:16 PM METAL BUILDING ASSEMBLER documented in this encounter Progress Notes Wu Bazan S, PAC - 06/27/2019 1:30 PM CST Brayan Carrion is a 69 year old male Chief Complaint Patient presents with INJECTION 2nd orthovisic injection right knee Vitals: 06/27/19 1316 Weight: 140.6 kg (310 lb) Height: 72" (182.9 cm) [facility] [address] [place] [address] All Vitals taken, allergies and all medications [...] file Gets together: Not on file Attends rastafarian service: Not on file Active member of [...] the first 48 hours following the injection. L BUILDING ASSEMBLER documented in this encounter Plan of Treatment Date Type Specialty Care Team Description 07/04/2019 Office Visit Orthopedic Surgery Wu Bazan PAC [address] [place], [place] [address] Health Maintenance Due Date [...] PM 30 mg Right Knee (viscosup) (ORTHOVISC) METAL BUILDING ASSEMBLER injection 30 mg 30 mg, Intra-articular, ONCE, 1 dose, 06/27/19 at 1430, Routine documented in this encounter Insurance Payer Benefit Plan Subscriber ID Effective Phone Address Typ e / Group Dates AETNA - AETNA [id number] 2016-Prese P O BOX Medic are Adv MANAGED MEDICARE ADV nt [id number] [place] [address] documented as of this encounter
--- OUTSIDE RECORDS SUMMARY | 2019-09-02 12:11 | XMS REPORT | Summary of Care ---
:1950 Author Organization [facility] - [facility] Address [address] [place] [address] Care Team Providers Name Role Phone Pcp, Does Not Have A Primary Care Provider Karlene Bazan PAC Unavailable Allegra Vargas MD Unavailable Reason for Visit Reason Comments Follow-up Knee Pain rt INJECTION 3rd Orthovisc (Routine) Status Reason Specialty Diagnoses / Procedures Referred By Rubén eferred To Contact Contact Closed PA-PHYSICIAN Diagnoses Unilateral primary osteoarthritis, right knee 1st Orthovisc Injection Right Knee George Vargas Brett S, ADVERTISING INTERNSHIP / Procedures CONSULT/REFERRAL ORTHOPAEDIC SURGERY [place] ORTHOVISC INJ PER DOSE [place] ARTHROCENTESIS ASPIR&/INJ MAJOR JT/BURSA W/O US FOLLOW-UP VISIT MD Allegra PAC Orthopedic Surgery [address] [place] [phone] Phone: Fax: Encounter Details Date Type Department Care Team Description 07/04/2019 Office Visit [facility] Wu Bazan, Primary oste oarthritis Orthopaedic Surgery- PAC of right knee (Primary [place] [address]) [address] [place] [place] [address] Allergies No Known Allergiesdocumented as of this encounter (statuses as of 07/04/2019) Medications Medication Sig Dispensed Refills Start Date [...] Medication sodium hyaluronate 30 mg Intra-articu ONCE 07/04/2019 020 Ended (viscosup) (ORTHOVISC) injection 30 mg documented as of this encounter (statuses as of 07/04/2019) Active Problems Problem Noted Date Acute gastric ulcer 11/18/2015 Chronic kidney disease, stage II (mild) 11/18/2015 Type 2 diabetes mellitus 11/17/2015 Hyperlipidemia 11/17/2015 Hypertension 11/17/2015 Upper gastrointestinal hemorrhage 11/17/2015 documented as of this encounter (statuses as of 07/04/2019) Social History Tobacco Use Types Packs/Day Years [...] - - Weight 140.6 kg (310 lb) 07/04/2019 1:20 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 HPI [...] file Gets together: Not on file Attends buddhist service: Not on file Active member of [...] | BMI 42.04 kg/m Physical Exam Assessment/Plan The knee was examined and marked with [...] first 48 hours following the injection. ING ROD COATER documented in this encounter Plan of Treatment [...] Dose Rate Site sodium hyaluronate (viscosup) Given 07/04/2019 1:21 PM WELDING ROD COATER 30 m g Right Knee (ORTHOVISC) injection 30 mg 30 mg, Intra-articular, ONCE, 1 dose, 07/04/19 at 1430, Routine documented in this encounter Insurance Payer Benefit Plan Subscriber ID Effective Phone Address Typ e / Group Dates AETNA - AETNA [id number] 2016-Prese P O BOX Medic are Adv MANAGED MEDICARE ADV nt [id number] PPO [place] [phone] documented as of this encounter
--- OUTSIDE RECORDS SUMMARY | 2019-09-02 12:12 | XMS REPORT | Summary of Care ---
:1950 Author Organization [facility] Address [address] [place] [address] Care Team Providers Name Role Phone Pcp, [...] Injection Right Knee George Vargas Brett S, LEGAL ADMINISTRATIVE ASSISTANT / Procedures CONSULT/REFERRAL ORTHOPAEDIC SURGERY [place] ORTHOVISC INJ PER DOSE [place] ARTHROCENTESIS ASPIR&/INJ MAJOR JT/BURSA W/O US FOLLOW-UP VISIT MD Allegra PAC Orthopedic Surgery [address] [place] [phone] Phone: Fax: Encounter Details Date Type Department Care Team Description 07/04/2019 Office Visit [facility] Wu Bazan, Primary oste oarthritis Orthopaedic Surgery- PAC of right knee (Primary [place] [address]) [address] [place] [address] Allergies No Known Allergiesdocumented [...] 140.6 kg (310 lb) 07/04/2019 1:20 PM ER MEDICAL TECHNICIAN Height 182.9 cm (6') 07/04/2019 1:20 PM ER MEDICAL TECHNICIAN Body Mass Index 42.04 07/04/2019 1:20 PM ER MEDICAL TECHNICIAN documented in this encounter Progress Notes Wu [...] the first 48 hours following the injection. MEDICAL TECHNICIAN documented in this encounter Plan of Treatment [...] sodium hyaluronate (viscosup) Given 07/04/2019 1:21 PM ER MEDICAL TECHNICIAN 30 m g Right Knee (ORTHOVISC) injection 30 mg 30 mg, Intra-articular, ONCE, 1 dose, 07/04/19 at 1430, Routine documented in this encounter Insurance Payer Benefit Plan Subscriber ID Effective Phone Address Typ e / Group Dates AETNA - AETNA [id number] 2016-Prese P O BOX Medic are Adv MANAGED MEDICARE ADV nt [id number] PPO [place]IC[place] [phone] documented as of this encounter
--- OUTSIDE RECORDS SUMMARY | 2019-09-02 12:12 | XMS REPORT | Summary of Care ---
:1950 Author Organization [facility] Address [address] [place] [address] Care Team Providers Name Role Phone Pcp, Does Not Have A Primary Care Provider Karlene Bazan PAC Unavailable Allegra Vargas MD Unavailable Reason for Visit Reason Comments Refill Request Encounter Details Date Type Department Care Team Description 08/29/2019 Telephone [facility] Surgical Clementine Vargas MD Refill Request [facility] on [address], [address] [place] [address] [phone] Allergies No Known Allergiesdocumented as of this encounter (statuses as of 08/29/2019) Medications Medication Sig Dispensed Refills Start Date [...] 2 tablets 0 Active sodium 8.6-50 mg by mouth. per tablet [...] Active tablet mouth. insulin detemir inject 40 0 Acti ve U-100 100 unit/mL Units under injection the skin. psyllium (METAMUCIL Take 1 Packet 0 Active FIBER SINGLES) 3.4 by mouth. gram packet diclofenac 75 mg EC TAKE 1 TABLET 0 04/26/2019 Active tablet BY MOUTH TWICE DAILY WITH MEALS FOR 30 DAYS Diclofenac Sodium 1 APPLY 2 TO 100 g 0 08/29/2019 Active % gelIndications: 4 GRAMS Primary TOPICALLY TO osteoarthritis of AFFECTED right knee AREA(S) 4 TIMES A DAY) DICLOFENAC SODIUM 1 APPLY 2 TO 100 g 0 07/18/2019 Discontinued % gelIndications: 4 GRAMS 20 (R eorder) Primary TOPICALLY TO osteoarthritis of AFFECTED right knee AREA(S) 4 TIMES A DAY) documented as of this encounter (statuses as of 08/29/2019) Active Problems Problem Noted Date Acute gastric ulcer 11/18/2015 Chronic kidney disease, stage II (mild) 11/18/2015 Type 2 diabetes mellitus 11/17/2015 Hyperlipidemia 11/17/2015 Hypertension 11/17/2015 Upper gastrointestinal hemorrhage 11/17/2015 documented as of this encounter (statuses as of 08/29/2019) Social History Tobacco Use Types Packs/Day Years [...] Diagnoses Diagnosis Primary osteoarthritis of right knee Primary localized osteoarthrosis, lower leg documented in this encounter Insurance Payer Benefit Plan Subscriber ID Effective Phone Address Typ e / Group Dates AETNA - AETNA [id number] 2016-Prese P O BOX Medic are Adv MANAGED MEDICARE ADV nt [id number] [place] [address] documented as of this encounter
--- OUTSIDE RECORDS SUMMARY | 2019-09-02 12:12 | XMS REPORT | Summary of Care ---
:1950 Author Organization [facility] Address [address] [place] [address] Care Team Providers Name Role Phone Pcp, Does Not Have A Primary Care Provider Karlene Bazan PAC Unavailable Allegra Vargas MD Unavailable Reason for Visit Reason Comments Refill Request Encounter Details Date Type Department Care Team Description 08/29/2019 Telephone [facility] Surgical Clementine Vargas MD Refill Request [facility] on [address], [address] [place] [address] [phone] Allergies No Known Allergiesdocumented as of this [...] e / Group Dates AETNA - AETNA [id number] 2016-Prese P O BOX Medic are Adv MANAGED MEDICARE ADV nt [id number] [place] [address] documented as of this encounter
--- OUTSIDE RECORDS SUMMARY | 2019-09-02 12:12 | XMS REPORT | Summary of Care ---
:1950 Author Organization [facility] Address [address] [place] [address] Care Team Providers Name Role Phone Pcp, Does Not Have A Primary Care Provider Karlene Bazan PAC Unavailable Allegra Vargas MD Unavailable Reason for Visit Reason Comments Refill Request Encounter Details Date Type Department Care Team Description 07/15/2019 Refill [facility] Orthopaedic Kai Bazan, PAC Refill Request Surgery- [place] [address] [facility], [place] [address] [place] [address] [phone] Allergies No Known Allergiesdocumented as of this encounter (statuses as of 07/18/2019) Medications Medication Sig Dispensed Refills Start Date [...] FOR 30 DAYS DICLOFENAC SODIUM 1 APPLY 2 TO 4 100 g 0 07/18/2019 Active % gelIndications: GRAMS Primary TOPICALLY TO osteoarthritis of AFFECTED right knee AREA(S) 4 TIMES A DAY) DICLOFENAC SODIUM 1 APPLY 2-4 GRAMS 100 g 0 06/21/2019 Discontinued % gelIndications: TO AFFECTED 0 Primary AREA(S) FOUR osteoarthritis of TIMES A DAY right knee documented as of this encounter (statuses as of 07/18/2019) Active Problems Problem Noted Date Acute gastric ulcer 11/18/2015 Chronic kidney disease, stage II (mild) 11/18/2015 Type 2 diabetes mellitus 11/17/2015 Hyperlipidemia 11/17/2015 Hypertension 11/17/2015 Upper gastrointestinal hemorrhage 11/17/2015 documented as of this encounter (statuses as of 07/18/2019) Social History Tobacco Use Types Packs/Day Years [...] e / Group Dates AETNA - AETNA [id number] 2016-Prese P O BOX Medic are Adv MANAGED MEDICARE ADV nt [id number] [place] [address] documented as of this encounter
--- OUTSIDE RECORDS SUMMARY | 2019-09-02 12:12 | XMS REPORT | Summary of Care ---
:1950 Author Organization [facility] Address [address] [place] [address] Care Team Providers Name Role Phone Pcp, [...] Injection Right Knee George Vargas Brett S, READING EFFICIENCY COURSE DIRECTOR / Procedures CONSULT/REFERRAL ORTHOPAEDIC SURGERY [place] ORTHOVISC INJ PER DOSE DE ARTHROCENTESIS ASPIR&/INJ MAJOR JT/BURSA W/O US FOLLOW-UP VISIT MD Allegra PAC Orthopedic Surgery [address] [place] [phone] Phone: Fax: Encounter Details Date Type Department Care Team Description 07/04/2019 Office Visit [facility] Wu Bazan, Primary oste oarthritis Orthopaedic Surgery- PAC of right knee (Primary [place] [address] [place] [phone] Allergies No Known Allergiesdocumented as of this encounter (statuses as of 08/05/2019) Medications Medication Sig Dispensed Refills Start Date [...] osteoarthritis of TIMES A DAY right knee Hospital, Clinic, or Ordered Dose Route Frequency Start Date End D ate Status Other Facility Administered Medication sodium hyaluronate 30 mg Intra-articu ONCE 07/04/2019 020 Ended (viscosup) (ORTHOVISC) injection 30 mg documented as of this encounter (statuses as of 08/05/2019) Active Problems Problem Noted Date Acute gastric ulcer 11/18/2015 Chronic kidney disease, stage II (mild) 11/18/2015 Type 2 diabetes mellitus 11/17/2015 Hyperlipidemia 11/17/2015 Hypertension 11/17/2015 Upper gastrointestinal hemorrhage 11/17/2015 documented as of this encounter (statuses as of 08/05/2019) Social History Tobacco Use Types Packs/Day Years [...] 140.6 kg (310 lb) 07/04/2019 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 [...] file Gets together: Not on file Attends orthodoxy service: Not on file Active member of [...] Assessment/Plan 1. Primary osteoarthritis of right knee The knee was examined and [...] sodium hyaluronate (viscosup) Given 07/04/2019 1:21 PM RETAIL DELIVERY DRIVER 30 m g Right Knee (ORTHOVISC) injection 30 mg 30 mg, Intra-articular, ONCE, 1 dose, 07/04/19 at 1430, Routine documented in this encounter Insurance Payer Benefit Plan Subscriber ID Effective Phone Address Typ e / Group Dates AETNA - AETNA [id number] 2016-Prese P O BOX Medic are Adv MANAGED MEDICARE ADV nt [id number] [place] [address] documented as of this encounter
[2019-09-02 14:06] LABS: Urine Blood NEGATIVE (NEG); Urine Glucose NEGATIVE (NEG); Urine Protein NEGATIVE (NEG); Urine Specific Gravity 1.015 (1.005-1.030)
[2019-09-02] MEDS ORDERED: LACTULOSE 20 GM/30 ML UCUP ONE (14:50)
[2019-09-02] MEDS ORDERED: BISACODYL 10 MG RECTAL SUPP ONE (14:50)
[2019-09-02 14:51] LABS: Absolute Lymphocytes (CBC) 1.7 K/uL (0.7-4.9); Basophils % 0.6 % (0-1.3); Hematocrit 42.2 % (39.6-49.0); Lymphocytes % 26.4 % (15.3-44.8); MPV 9.6 fL (7.6-11.3); RBC Red Blood Cell Count 4.54 M/uL (4.33-5.43)
[2019-09-02 15:08] LABS: Albumin 3.5 g/dL (3.4-5.0); Bilirubin Direct 0.2 mg/dL (0-0.2); Bilirubin Total 0.5 mg/dL (0.2-1.0); Potassium 4.5 mmol/L (3.5-5.1); Protein, Total 7.4 g/dL (6.4-8.2)
[2019-09-02] MEDS ORDERED: NA CHLORIDE 0.9% 1,000 ML ONE (15:57)
--- NOTE | 2019-09-02 16:40 | RAD REPORT ---
EXAM DESCRIPTION: CTAbdomen Pelvis W Contrast - 09/02/2019 4:28 pm CLINICAL HISTORY: Abdominal pain. Abd pain;Constipation COMPARISON: No comparisons TECHNIQUE: Biphasic CT imaging of the abdomen and pelvis was performed with 100 ml non-ionic IV cont rast. All CT scans are performed using dose optimization technique as appropriate and may include automated exposure control or mA/KV adjustment according to patient size. FINDINGS: The lung bases are clear. The liver, spleen, pancreas, adrenal glands and kidneys are within normal limits. No bowel obstruction, free air, free fluid or abscess. Moderate stool is seen in the colon. The appen loretta is not identified as a discrete structure, however, no secondary findings of appendicitis are esa ntified. Evidence of previous ventral hernia repair with mesh in place. No evidence of significant l ymphadenopathy. Moderate lower lumbar degenerative changes. IMPRESSION: No acute intra-abdominal or pelvic finding.
--- NOTE | 2019-09-02 16:51 | ER ---
Nurse's Notes [facility] Name: Brayan Carrion Age: 69 yrs Sex: Male : 1950 Arrival Date: 09/02/2019 Time: 12:06 Bed 17 Private MD: Ian Garcia C; Elvis García H Diagnosis: Constipation;Type 1 diabetes mellitus;Abdominal tenderness;Obesity, unspecified;Unspecified kidney failure-INSUFFENCY Presentation: 09/01 12:07 Chief complaint: Patient states: constipation x [address] García on Thursday and sv got a prep kit and helped with movement. Called his office today again because it feels like he can't have a BM again. Dr García sent him to the ER for labs and CT. Coronavirus screen: Proceed with normal triage. Patient denies a cough. Patient denies shortness of breath or difficulty breathing. Patient denies measured and/or subjective temperature greater than 100.4F prior to today's visit. Patient denies travel on a cruise ship or to a country the [facility] currently lists as an affected area. Patient denies contact with known and/or suspected case of COVID-19. Ebola Screen: No symptoms or risks identified at this time. Risk Assessment: Do you want to hurt yourself or someone else? Patient reports no desire to harm self or others. Onset of symptoms was August 19, 2019. 12:07 Method Of Arrival: Ambulatory sv 12:07 Acuity: CLARE 3 sv 12:10 Initial Sepsis Screen: Does the patient meet any 2 criteria? No. Patient's initial sv sepsis screen is negative. Does the patient have a suspected source of infection? No. Patient's initial sepsis screen is negative. Triage Assessment: 12:12 General: Appears in no apparent distress. comfortable, Behavior is calm, cooperative, sv appropriate for age. Neuro: Level of Consciousness is awake, alert, obeys commands, Gait is steady. Respiratory: Respiratory effort is even, unlabored. GI: Reports constipation, gaseousness. Historical: - Allergies: 12:10 No Known Allergies; sv - PMHx: 12:10 Diabetes - IDDM; Hyperlipidemia; Hypertension; sv - PSHx: 12:10 Heart stents; Hernia repair; rotator cuff surgery; l KNEE REPLACEMENT; sv - Immunization history:: Flu vaccine is not up to date. - Social history:: Smoking status: Patient denies any tobacco usage or history of. - Family history:: not pertinent. Screenin:40 Abuse screen: Denies threats or abuse. Denies injuries from another. Nutritional ca1 screening: No deficits noted. Tuberculosis screening: No symptoms or risk factors identified. Fall Risk IV access (20 points). Assessment: 14:40 General: Appears in no apparent distress. comfortable, Behavior is calm, cooperative, ca1 appropriate for age. Pain: Complains of pain in abdomen. Neuro: Level of Consciousness is awake, alert, obeys commands, Oriented to person, place, time, situation, Appropriate for age. Cardiovascular: Heart tones S1 S2 present Capillary refill < 3 seconds Patient's skin is warm and dry. Respiratory: Airway is patent Respiratory effort is even, unlabored, Respiratory pattern is regular, symmetrical, Breath sounds are clear bilaterally. GI: Abdomen is round non-distended, Bowel sounds present X 4 quads. Abd is soft and non tender X 4 quads. Reports constipation. GI: Reports ribbon like stools. Reports last normal BM and stool was couple weeks ago. Been having small BM for the past couple days. : No signs and/or symptoms were reported regarding the genitourinary system. EENT: No signs and/or symptoms were reported regarding the EENT system. Derm: Skin is intact, is healthy with good turgor, Skin is pink, warm \\T\\ dry. Musculoskeletal: Circulation, motion, and sensation intact. Capillary refill < 3 seconds. 14:49 Reassessment: PO contrast completed. Notified CT. ca1 15:12 Reassessment: Pt ambulated to restroom. Reports BM x 1 but states, "I still feel there ca1 is more inside me". 15:49 Reassessment: Patient appears in no apparent distress at this time. Patient and/or ca1 family updated on plan of care and expected duration. Pain level reassessed. Patient is alert, oriented x 3, equal unlabored respirations, skin warm/dry/pink. 16:45 Reassessment: Patient appears in no apparent distress at this time. Patient is alert, ca1 oriented x 3, equal unlabored respirations, skin warm/dry/pink. BM x 1. 17:11 Reassessment: Patient appears in no apparent distress at this time. Patient is alert, ca1 oriented x 3, equal unlabored respirations, skin warm/dry/pink. Vital Signs: 12:10 BP 111 / 70; Pulse 73; Resp 16; Temp 98; Pulse Ox 98% ; Weight 136.08 kg; Height 6 ft. sv 1 in. (185.42 cm); 14:49 BP 112 / 66; Pulse 79; Resp 15 S; Pulse Ox 98% on R/A; ca1 15:49 BP 117 / 71; Pulse 81; Resp 17 S; Pulse Ox 99% on R/A; ca1 16:45 BP 115 / 75; Pulse 73; Resp 17 S; Pulse Ox 98% on R/A; ca1 12:10 Body Mass Index 39.58 (136.08 kg, 185.42 cm) sv ED Course: 12:06 Patient arrived in ED. as 12:06 Elvis García MD is Private Physician. as 12:06 Ian Garcia MD is Private Physician. as 12:07 Arm band placed on. sv 12:09 Triage completed. sv 14:10 Nargis Li RN is Primary Nurse. ca1 14:14 Turner Santana MD is Attending Physician. charlotte 14:40 Patient has correct armband on for positive identification. Bed in low position. Call ca1 light in reach. Side rails up X 1. Pulse ox on. NIBP on. Warm blanket given. 16:27 CT Abd/Pelvis - PO Contrast Only In Process Unspecified. EDMS 16:51 Elvis García MD is Referral Physician. charlotte 16:51 Ian Garcia MD is Referral Physician. [place] 17:12 No provider procedures requiring assistance completed. IV discontinued, intact, ca1 bleeding controlled, No redness/swelling at site. Pressure dressing applied. Administered Medications: 14:46 Drug: Lactulose 30 grams Volume: 45 ml; Route: PO; ca1 15:52 Follow up: Response: No adverse reaction ca1 14:48 Drug: Dulcolax Suppository 10 mg Route: AK; ca1 15:52 Follow up: Response: No adverse reaction ca1 15:52 Drug: NS 0.9% 1000 ml Route: IV; Rate: 1 bolus; Site: right forearm; ca1 17:07 Follow up: Response: No adverse reaction; IV Status: Order to discontinue infusion; ca1 Order to discontinue infusion, pt discharged; IV Intake: 600ml Intake: 17:07 IV: 600ml; Total: 600ml. ca1 Outcome: 16:51 Discharge ordered by . charlotte 17:12 Discharged to home ambulatory. ca1 17:12 Condition: stable 17:12 Discharge instructions given to patient, Instructed on discharge instructions, follow up and referral plans. medication usage, Demonstrated understanding of instructions, follow-up care, medications, Prescriptions given X 2. 17:12 Patient left the ED. ca1 Signatures: Dispatcher [employer] Citlalli Kline RN RN sv Turner Santana MD MD cha Martinez, Amelia as Acob, Cheryl, RN RN ca1 Corrections: (The following items were deleted from the chart) 12:41 12:10 Pulse 73bpm; Resp 16bpm; Pulse Ox 98%; Temp 98F; 136.08 kg; Height 6 ft. 1 in.; sv BMI: 39.5; sv
--- NOTE | 2019-09-02 16:51 | EDPHYS ---
Physician Documentation [facility] Name: Brayan Carrion Age: 69 yrs Sex: Male : 1950 Arrival Date: 09/02/2019 Time: 12:06 Bed 17 Private MD: Ian Garcia C; Elvis Vyas H ED Physician Turner Santana HPI: 09/01 14:25 This 69 yrs old Male presents to ER via Ambulatory with complaints of charlotte Constipation. 14:25 The patient presents with abdominal pain in the upper abdomen, in the lower abdomen, charlotte abdominal distention in the upper abdomen, in the lower abdomen. Onset: The symptoms/episode began/occurred 2 day(s) ago. The symptoms do not radiate. Associated signs and symptoms: none. The symptoms are described as constant, crampy. Modifying factors: The symptoms are alleviated by nothing, the symptoms are aggravated by no bm. Severity of pain: At its worst the pain was mild moderate in the emergency department the pain is unchanged. The patient has experienced similar episodes in the past, multiple times. Historical: - Allergies: 12:10 No Known Allergies; sv - PMHx: 12:10 Diabetes - IDDM; Hyperlipidemia; Hypertension; sv - PSHx: 12:10 Heart stents; Hernia repair; rotator cuff surgery; l KNEE REPLACEMENT; sv - Immunization history:: Flu vaccine is not up to date. - Social history:: Smoking status: Patient denies any tobacco usage or history of. - Family history:: not pertinent. ROS: 14:25 Constitutional: Negative for fever, chills, and weight loss, Eyes: Negative for injury, charlotte pain, redness, and discharge, ENT: Negative for injury, pain, and discharge, Neck: Negative for injury, pain, and swelling, Cardiovascular: Negative for chest pain, palpitations, and edema, Respiratory: Negative for shortness of breath, cough, wheezing, and pleuritic chest pain, Back: Negative for injury and pain, : Negative for injury, bleeding, discharge, and swelling, MS/Extremity: Negative for injury and deformity, Skin: Negative for injury, rash, and discoloration, Neuro: Negative for headache, weakness, numbness, tingling, and seizure, Psych: Negative for depression, anxiety, suicide ideation, homicidal ideation, and hallucinations, Allergy/Immunology: Negative for hives, rash, and allergies, Endocrine: Negative for neck swelling, polydipsia, polyuria, polyphagia, and marked weight changes, Hematologic/Lymphatic: Negative for swollen nodes, abnormal bleeding, and unusual bruising. 14:25 Abdomen/GI: Positive for abdominal pain, constipation, of the right upper quadrant, left upper quadrant, right lower quadrant and left lower quadrant. Exam: 14:25 Constitutional: This is a well developed, well nourished patient who is awake, alert, charlotte and in no acute distress. Head/Face: Normocephalic, atraumatic. Eyes: Pupils equal round and reactive to light, extra-ocular motions intact. Lids and lashes normal. Conjunctiva and sclera are non-icteric and not injected. Cornea within normal limits. Periorbital areas with no swelling, redness, or edema. ENT: Nares patent. No nasal discharge, no septal abnormalities noted. Tympanic membranes are normal and external auditory canals are clear. Oropharynx with no redness, swelling, or masses, exudates, or evidence of obstruction, uvula midline. Mucous membranes moist. Neck: Trachea midline, no thyromegaly or masses palpated, and no cervical lymphadenopathy. Supple, full range of motion without nuchal rigidity, or vertebral point tenderness. No Meningismus. Chest/axilla: Normal chest wall appearance and motion. Nontender with no deformity. No lesions are appreciated. Cardiovascular: Regular rate and rhythm with a normal S1 and S2. No gallops, murmurs, or rubs. Normal PMI, no JVD. No pulse deficits. Respiratory: Lungs have equal breath sounds bilaterally, clear to auscultation and percussion. No rales, rhonchi or wheezes noted. No increased work of breathing, no retractions or nasal flaring. Back: No spinal tenderness. No costovertebral tenderness. Full range of motion. Male : Normal genitalia with no discharge or lesions. Skin: Warm, dry with normal turgor. Normal color with no rashes, no lesions, and no evidence of cellulitis. MS/ Extremity: Pulses equal, no cyanosis. Neurovascular intact. Full, normal range of motion. Neuro: Awake and alert, GCS 15, oriented to person, place, time, and situation. Cranial nerves II-XII grossly intact. Motor strength 5/5 in all extremities. Sensory grossly intact. Cerebellar exam normal. Normal gait. Psych: Awake, alert, with orientation to person, place and time. Behavior, mood, and affect are within normal limits. 14:25 Abdomen/GI: Inspection: distension, Bowel sounds: normal, Palpation: mild abdominal tenderness, in all quadrants, Liver: no appreciated palpable abnormalities, Hernia: not appreciated, tenderness, is not appreciated. Vital Signs: 12:10 BP 111 / 70; Pulse 73; Resp 16; Temp 98; Pulse Ox 98% ; Weight 136.08 kg; Height 6 ft. sv 1 in. (185.42 cm); 14:49 BP 112 / 66; Pulse 79; Resp 15 S; Pulse Ox 98% on R/A; ca1 15:49 BP 117 / 71; Pulse 81; Resp 17 S; Pulse Ox 99% on R/A; ca1 16:45 BP 115 / 75; Pulse 73; Resp 17 S; Pulse Ox 98% on R/A; ca1 12:10 Body Mass Index 39.58 (136.08 kg, 185.42 cm) sv MDM: 14:[address] [facility] 14:30 Differential diagnosis: AAA, bowel obstruction, diverticulitis, gastroesophageal reflux charlotte disease, non-specific abd pain, Peptic Ulcer Disease. Data reviewed: vital signs, nurses notes, lab test result(s), radiologic studies, CT scan. Data interpreted: intensive care specialist: not applicable for this patient encounter. Pulse oximetry: is 98 %. Test interpretation: by ED physician or midlevel provider: ct ab/pel. Counseling: I had a detailed discussion with the patient and/or guardian regarding: the historical points, exam findings, and any diagnostic results supporting the discharge/admit diagnosis, lab results, radiology results. ED course: sent by gi md dr vyas to get a ct abd , pel. 16:50 Response to treatment: the patient's symptoms have markedly improved after treatment. [facility] ED course: FOLLOW UP PCP AND DR VYAS, ALL LABS AND STUDIES EXPLAINED TO THE PATIENT. 09/01 14:01 Order name: Urine Dipstick--Ancillary (enter results) 09/01 14:25 Order name: Basic Metabolic Panel; Complete Time: 15:39 [place] 09/01 14:25 Order name: CBC with Diff; Complete Time: 15:39 [facility] 09/01 14:25 Order name: Creatinine for Radiology; Complete Time: 15:39 [facility] 09/01 14:25 Order name: Hepatic Function; Complete Time: 15:39 [facility] 09/01 14:25 Order name: Lipase; Complete Time: 15:39 [facility] 09/01 14:25 Order name: IV Saline Lock; Complete Time: 14:39 [facility] 09/01 14:25 Order name: Labs collected and sent; Complete Time: 14:39 [facility] 09/01 15:40 Order name: CT Abd/Pelvis - PO Contrast Only; Complete Time: 16:49 [facility] Administered Medications: 14:46 Drug: Lactulose 30 grams Volume: 45 ml; Route: PO; ca1 15:52 Follow up: Response: No adverse reaction ca1 14:48 Drug: Dulcolax Suppository 10 mg Route: ND; ca1 15:52 Follow up: Response: No adverse reaction ca1 15:52 Drug: NS 0.9% 1000 ml Route: IV; Rate: 1 bolus; Site: right forearm; ca1 17:07 Follow up: Response: No adverse reaction; IV Status: Order to discontinue infusion; ca1 Order to discontinue infusion, pt discharged; IV Intake: 600ml Disposition: 09/02/19 16:51 Discharged to Home. Impression: Constipation, Type 1 diabetes mellitus, Abdominal tenderness, Obesity, unspecified, Unspecified kidney failure - INSUFFENCY. - Condition is Stable. - Discharge Instructions: Abdominal Pain, Adult, Constipation, Adult, Type 1 Diabetes Mellitus, Diagnosis, Adult, Constipation, Adult, Yena-yh-Pzmz, Abdominal Pain, Adult, Fxbz-nz-Bwws, Chronic Kidney Disease, Adult, Whrz-yc-Hvuo, Type 1 Diabetes Mellitus, Self Care, Adult, Type 1 Diabetes Mellitus, Diagnosis, Adult, Znko-qo-Ecgt, Type 1 Diabetes Mellitus, Self Care, Adult, Wcpw-wm-Btqf. - Prescriptions for Lactulose 10 gram/15 mL Oral Solution - take 30 milliliter by ORAL route once daily; 300 milliliter. Miralax 17 gram/dose Oral - take 1 packet by ORAL route once daily dilute powder in 8 ounces of water or juice; 14 packet. - Medication Reconciliation Form, Thank You Letter, Antibiotic Education, Prescription Opioid Use form. - Follow up: Elvis Vyas; When: 2 - 3 days; Reason: Recheck today's complaints, Continuance of care, Re-evaluation by your physician. Follow up: A Garcia; When: 2 - 3 days; Reason: Recheck today's complaints, Continuance of care, Re-evaluation by your physician. - Problem is new. - Symptoms have improved. Signatures: Dispatcher [employer] [facility] Citlalli Lorenz RN RN Turner Hernandes MD MD cha Acob, YANIQUE Barillas RN ca1 Corrections: (The following items were deleted from the chart) 15:44 14:25 Abdomen Pelvis W Con+CT.RAD.BRZ ordered. [facility] 16:52 16:51 09/02/2019 16:51 Discharged to Home. Impression: Constipation; Type 1 diabetes charlotte mellitus; Abdominal tenderness; Obesity, unspecified. Condition is Stable. Discharge Instructions: Abdominal Pain, Adult, Constipation, Adult, Type 1 Diabetes Mellitus, Diagnosis, Adult, Constipation, Adult, Fici-vy-Xuaq, Abdominal Pain, Adult, Zuvx-sw-Osfe, Type 1 Diabetes Mellitus, Self Care, Adult, Type 1 Diabetes Mellitus, Diagnosis, Adult, Hegj-sj-Wstp, Type 1 Diabetes Mellitus, Self Care, Adult, Iriv-kr-Ldxg. Prescriptions for Lactulose 10 gram/15 mL Oral Solution - take 30 milliliter by ORAL route once daily; 300 milliliter, Miralax 17 gram/dose Oral - take 1 packet by ORAL route once daily dilute powder in 8 ounces of water or juice; 14 packet. and Forms are Medication Reconciliation Form, Thank You Letter, Antibiotic Education, Prescription Opioid Use. Follow up: Elvis Vyas; When: 2 - 3 days; Reason: Recheck today's complaints, Continuance of care, Re-evaluation by your physician. Follow up: Ian Garcia; When: 2 - 3 days; Reason: Recheck today's complaints, Continuance of care, Re-evaluation by your physician. Problem is new. Symptoms have improved. [facility] 17:12 16:52 09/02/2019 16:51 Discharged to Home. Impression: Constipation; Type 1 diabetes ca1 mellitus; Abdominal tenderness; Obesity, unspecified; Unspecified kidney failure - INSUFFENCY. Condition is Stable. Discharge Instructions: Abdominal Pain, Adult, Constipation, Adult, Type 1 Diabetes Mellitus, Diagnosis, Adult, Constipation, Adult, Kouf-xv-Elxq, Abdominal Pain, Adult, Euji-or-Tbhs, Type 1 Diabetes Mellitus, Self Care, Adult, Type 1 Diabetes Mellitus, Diagnosis, Adult, Izrl-yl-Acrx, Type 1 Diabetes Mellitus, Self Care, Adult, Lvow-cv-Dsaw. Prescriptions for Lactulose 10 gram/15 mL Oral Solution - take 30 milliliter by ORAL route once daily; 300 milliliter, Miralax 17 gram/dose Oral - take 1 packet by ORAL route once daily dilute powder in 8 ounces of water or juice; 14 packet. and Forms are Medication Reconciliation Form, Thank You Letter, Antibiotic Education, Prescription Opioid Use. Follow up: Elvis Vyas; When: 2 - 3 days; Reason: Recheck today's complaints, Continuance of care, Re-evaluation by your physician. Follow up: Ian Garcia; When: 2 - 3 days; Reason: Recheck today's complaints, Continuance of care, Re-evaluation by your physician. Problem is new. Symptoms have improved. charlotte
[2019-09-02 17:28] VITALS: TEMP 98
[2019-09-02 17:32] VITALS: BP 115/75; O2SAT 98
== END 2019-09-02 17:12 | disposition home or self-care (01) ==
LOC: ER 12:05
DX: K59.00 Constipation, unspecified (principal); N19 Unspecified kidney failure; E66.9 Obesity, unspecified; E10.9 Type 1 diabetes mellitus without complications
CPT/HCPCS: 85025; 80048; 36415; 80076; 81003; 83690; 74177; 96360; 99284; J7030

== ENCOUNTER 2020-09-16 21:38 | Emergency (ER) | payer OTHER ==
--- OUTSIDE RECORDS SUMMARY | 2020-09-16 21:41 | XMS REPORT | Continuity of Care Document ---
:1950 Author Organization [facility] t Address [address] [place] [address] Care Team Providers Name Role Phone Karlene Rodarte Attending Clinician Problems This patient has no known problems. Allergies, Adverse Reactions, Alerts This patient has no known allergies or adverse reactions. Medications This patient has no known medications. Procedures This patient has no known procedures. Encounters Start End Encounter Admission Attending Care Care Encounter Source Date/Time Date/Time Type Type Clinicians Facility Department ID 2020-09-11 2020-09-11 Telephone PONCHO Bazan [id number] 00:00:00 00:00:00 [facility] [id number] Surgical [id number] Specialti [id number] [address] 2020-08-09 2020-08-09 Office PONCHO Bazan [id number] 09:00:23 09:30:55 Visit [facility] [id number] Surgical [id number] Specialti [id number] [address] [place] Results This patient has no known results.
[2020-09-17] MEDS ORDERED: HYDROCODONE/APAP 10/325 TAB ONE (00:22)
[2020-09-17] MEDS ORDERED: LIDOCAINE 4% PATCH ONE (00:22)
--- NOTE | 2020-09-17 01:05 | EDPHYS ---
Physician Documentation [facility] Name: Brayan Carrion Age: 70 yrs Sex: Male : 1950 Arrival Date: 09/16/2020 Time: 21:40 Bed 30 Private MD: Ian Garcia C ED Physician Frank Salazar HPI: 09/17 00:19 This 70 yrs old Male presents to ER via Ambulatory with complaints of Fall pm1 Injury. 00:19 Details of fall: The patient fell from an upright position, while standing. Onset: The pm1 symptoms/episode began/occurred 4 day(s) ago. Associated injuries: The patient sustained scalp and left trapezius. Severity of symptoms: in the emergency department the symptoms are unchanged. The patient has not experienced similar symptoms in the past. The patient has not recently seen a physician. prior to fall patient reports pain to left trapezius area after holding putting the roller in his garage back up. On Thursday, he tripped backwards when his heel caught the edge of the concrete. He hit hit head and left upper back against the riding extractor tender raw stock and tools. No LOC. . Historical: - Allergies: 09/16 22:02 No Known Allergies; ca1 - PMHx: 22:02 Diabetes - IDDM; Hyperlipidemia; Hypertension; ca1 - PSHx: 22:02 Heart stents; Hernia repair; rotator cuff surgery; l KNEE REPLACEMENT; ca1 - Immunization history:: Client reports receiving the 2nd dose of the Covid vaccine, Client reports receiving the 1st dose of the Covid vaccine, Pneumococcal vaccine is up to date, Flu vaccine is up to date. - Social history:: Smoking status: Patient denies any tobacco usage or history of. ROS: 09/17 00:19 Constitutional: Negative for fever, chills, and weight loss, Eyes: Negative for injury, pm1 pain, redness, and discharge, ENT: Negative for injury, pain, and discharge. Cardiovascular: Negative for chest pain, palpitations, and edema, Respiratory: Negative for shortness of breath, cough, wheezing, and pleuritic chest pain, Abdomen/GI: Negative for abdominal pain, nausea, vomiting, diarrhea, and constipation, Back: Negative for injury and pain, MS/Extremity: Negative for injury and deformity, Skin: Negative for injury, rash, and discoloration. Neck: Positive for pain with movement, tenderness, of the left trapezius, Negative for bony tenderness. Neuro: Positive for headache, Negative for loss of consciousness, numbness, tingling, weakness. Exam: 00:19 Constitutional: This is a well developed, well nourished patient who is awake, alert, pm1 and in no acute distress. Head/Face: Normocephalic, atraumatic. Eyes: Pupils equal round and reactive to light, extra-ocular motions intact. Lids and lashes normal. Conjunctiva and sclera are non-icteric and not injected. Cornea within normal limits. Periorbital areas with no swelling, redness, or edema. 00:19 Respiratory: Lungs have equal breath sounds bilaterally, clear to auscultation and percussion. No rales, rhonchi or wheezes noted. No increased work of breathing, no retractions or nasal flaring. Abdomen/GI: Soft, non-tender, with normal bowel sounds. No distension or tympany. No guarding or rebound. No evidence of tenderness throughout. Back: No spinal tenderness. No costovertebral tenderness. Full range of motion. Skin: Warm, dry with normal turgor. Normal color with no rashes, no lesions, and no evidence of cellulitis. MS/ Extremity: Pulses equal, no cyanosis. Neurovascular intact. Full, normal range of motion. 00:19 ENT: Mouth: Lips: normal, Oral mucosa: normal, pink and intact, moist. 00:19 Neck: External neck: tenderness, of the left trapezius, C-spine: vertebral tenderness, is not appreciated, ROM/movement: is normal. 00:19 Cardiovascular: Exam negative for acute changes, Rate: normal, Rhythm: regular, Pulses: no pulse deficits are appreciated, Edema: is not appreciated. 00:19 Respiratory: Exam negative for acute changes, respiratory distress, shortness of breath. 00:19 Neuro: Orientation: is normal, Mentation: is normal, Motor: is normal, moves all fours. Vital Signs: 09/16 21:59 Pulse 104; Resp 16 S; Temp 97.1(TE); Pulse Ox 100% on R/A; Weight 135.17 kg (R); Height ca1 6 ft. 1 in. (185.42 cm) (R); Pain 8/10; 22:02 BP 116 / 67; ca1 21:59 Body Mass Index 39.32 (135.17 kg, 185.42 cm) ca1 MDM: 23:53 Patient medically screened. pm1 09/17 00:24 Data reviewed: vital signs. Data interpreted: Pulse oximetry: on room air is 100 %. pm1 Interpretation: normal. 01:02 Counseling: I had a detailed discussion with the patient and/or guardian regarding: the pm1 historical points, exam findings, and any diagnostic results supporting the discharge/admit diagnosis, radiology results, the need for outpatient follow up, to return to the emergency department if symptoms worsen or persist or if there are any questions or concerns that arise at home. 09/16 23:55 Order name: Shoulder Left (2 View) XRAY pm1 09/16 23:55 Order name: CT Head C Spine pm1 Administered Medications: 00:08 Drug: [place] (HYDROcodone-acetaminophen) 10 mg-325 mg 1 tabs Route: PO; iw 00:08 Drug: Lidoderm 5 % (700 mg/patch) 1 patches Route: Topical; Site: affected area; iw Disposition: 06:13 Co-signature as Attending Physician, Frank Salazar MD. pkl Disposition: 09/17/20 01:05 Discharged to Home. Impression: Fall on same level, unspecified, Superficial injury of head, Strain of muscle and tendon of back wall of thorax - left trapezius. - Condition is Stable. - Discharge Instructions: Head Injury, Adult, Fall Prevention in the Home, Muscle Strain. - Prescriptions for Tylenol- Codeine #3 300-30 mg Oral Tablet - take 2 tablets by ORAL route every 4-6 hours As needed; 20 tablet. Lidoderm 5 % Topical adhesive patch,medicated - apply 1 patch by TRANSDERMAL route once daily As needed 12 hours on and 12 hours off in a 24 hour period; 10 Transdermal Patch. Cyclobenzaprine 10 mg Oral Tablet - take 1 tablet by ORAL route every 8 hours As needed; 30 tablet. - Medication Reconciliation Form, Thank You Letter, Antibiotic Education, Prescription Opioid Use form. - Follow up: Emergency Department; When: As needed; Reason: Worsening of condition. Follow up: Private Physician; When: 2 - 3 days; Reason: Recheck today's complaints, Continuance of care, Re-evaluation by your physician. - Problem is new. - Symptoms have improved. Signatures: Dispatcher [employer] EDMS Salazar, Pin, MD MD pkl John, Maru, RN RN iw Jason Omalley, DAGOBERTO SEALING MACHINE OPERATOR pm1 Nargis Li RN RN ca1 Corrections: (The following items were deleted from the chart) 01:27 01:05 09/17/2020 01:05 Discharged to Home. Impression: Fall on same level, unspecified; iw Superficial injury of head; Strain of muscle and tendon of back wall of thorax - left trapezius. Condition is Stable. Forms are Medication Reconciliation Form, Thank You Letter, Antibiotic Education, Prescription Opioid Use. Follow up: Emergency Department; When: As needed; Reason: Worsening of condition. Follow up: Private Physician; When: 2 - 3 days; Reason: Recheck today's complaints, Continuance of care, Re-evaluation by your physician. Problem is new. Symptoms have improved. pm1
--- NOTE | 2020-09-17 01:05 | ER ---
Nurse's Notes [facility] Name: Brayan Carrion Age: 70 yrs Sex: Male : 1950 Arrival Date: 09/16/2020 Time: 21:40 Bed 30 Private MD: Ian Garcia C Diagnosis: Fall on same level, unspecified;Superficial injury of head;Strain of muscle and tendon of back wall of thorax-left trapezius Presentation: 09/16 21:59 Chief complaint: Patient states: Loss balance and fell backwards on Thursday. Reports ca1 pain on L shoulder, back, L arm. Coronavirus screen: Client denies travel out of the [place] in the last 14 days. At this time, the client does not indicate any symptoms associated with coronavirus-19. Ebola Screen: Patient negative for fever greater than or equal to 101.5 degrees Fahrenheit, and additional compatible Ebola Virus Disease symptoms Patient denies exposure to infectious person. Patient denies travel to an Ebola-affected area in the 21 days before illness onset. No symptoms or risks identified at this time. Initial Sepsis Screen: Does the patient meet any 2 criteria? No. Patient's initial sepsis screen is negative. Does the patient have a suspected source of infection? No. Patient's initial sepsis screen is negative. Risk Assessment: Do you want to hurt yourself or someone else? Patient reports no desire to harm self or others. Onset of symptoms was September 16, 2020. 21:59 Method Of Arrival: Ambulatory ca1 21:59 Acuity: CLARE 4 ca1 Historical: - Allergies: 22:02 No Known Allergies; ca1 - PMHx: 22:02 Diabetes - IDDM; Hyperlipidemia; Hypertension; ca1 - PSHx: 22:02 Heart stents; Hernia repair; rotator cuff surgery; l KNEE REPLACEMENT; ca1 - Immunization history:: Client reports receiving the 2nd dose of the Covid vaccine, Client reports receiving the 1st dose of the Covid vaccine, Pneumococcal vaccine is up to date, Flu vaccine is up to date. - Social history:: Smoking status: Patient denies any tobacco usage or history of. Screenin:47 Abuse screen: Denies threats or abuse. Denies injuries from another. Nutritional iw screening: No deficits noted. Tuberculosis screening: No symptoms or risk factors identified. Fall Risk None identified. Assessment: 23:46 General: Appears in no apparent distress. Behavior is calm, cooperative. Pain: iw Complains of pain in anterior aspect of left shoulder and posterior aspect of left shoulder Pain radiates to right posterior upper chest wall. Neuro: Level of Consciousness is awake, alert, obeys commands, Oriented to person, place, time, situation, Moves all extremities. Full function. Cardiovascular: Patient's skin is warm and dry. Respiratory: Respiratory effort is even, unlabored, Respiratory pattern is regular, symmetrical. Derm: Skin is intact, is healthy with good turgor. Musculoskeletal: Range of motion: intact in all extremities. Vital Signs: 21:59 Pulse 104; Resp 16 S; Temp 97.1(TE); Pulse Ox 100% on R/A; Weight 135.17 kg (R); Height ca1 6 ft. 1 in. (185.42 cm) (R); Pain 8/10; 22:02 BP 116 / 67; ca1 21:59 Body Mass Index 39.32 (135.17 kg, 185.42 cm) ca1 ED Course: 21:40 Patient arrived in ED. am4 21:42 Ian Garcia MD is Private Physician. am4 22:01 Triage completed. ca1 22:02 Arm band placed on right wrist. ca1 23:41 Jason Omalley NP is PHCP. pm1 23:42 Frank Salazra MD is Attending Physician. pm1 23:45 Maru Lopez RN is Primary Nurse. iw 09/17 00:22 Shoulder Left (2 View) XRAY In Process Unspecified. EDMS 00:31 CT Head C Spine In Process Unspecified. EDMS 01:24 No provider procedures requiring assistance completed. Patient did not have IV access iw during this emergency room visit. Administered Medications: 00:08 Drug: [place] (HYDROcodone-acetaminophen) 10 mg-325 mg 1 tabs Route: PO; iw 00:08 Drug: Lidoderm 5 % (700 mg/patch) 1 patches Route: Topical; Site: affected area; iw Outcome: 01:05 Discharge ordered by . pm1 01:27 Patient left the ED. iw Signatures: Dispatcher [employer] EDMS Maru Lopez RN RN iw Jason Omalley NP REGULATORY COMPLIANCE OFFICER pm1 Nargis Li RN RN ca1 Karla Gracia am4
[2020-09-17 01:51] VITALS: TEMP 97.1; O2SAT 100
[2020-09-17 01:52] VITALS: BP 116/67
--- NOTE | 2020-09-17 07:30 | RAD REPORT ---
EXAM DESCRIPTION: RAD - Shoulder Left 2 View - 09/17/2020 12:11 am CLINICAL HISTORY: Left shoulder pain status post fall FINDINGS: No fracture or dislocation is seen. Moderate osteoarthritis AC joint
--- NOTE | 2020-09-17 12:14 | RAD REPORT ---
EXAM DESCRIPTION: CT - Head C Spine Mpr Wo Con - 09/17/2020 6:29 am CLINICAL HISTORY: 70 years, Male, PAIN COMPARISON: None. FINDINGS: Multiple transaxial tomograms of the brain were obtained from the base of the skull to the vertex without contrast. 2-D multiplanar reformats and the coronal and sagittal plane were performed and reviewed. In addition multiple axial CT images through the cervical spine were obtained at 2 mm slice thickness at 2 mm interval reconstruction. In addition 2-D multiplanar reformats and the sagittal coronal plan e were performed and reviewed. This exam was performed according to our departmental dose-optimization protocol, which includes auto mated exposure control, adjustment of the mA and/or kV according to patient size and/or use of iterat ashtyn reconstruction technique. Head: Brain parenchyma as well as the patel and white matter differentiation demonstrate to be unremar kable. There is no midline shift and/or mass effect. There is no evidence for acute hemorrhage and/or infarction. Lateral ventricles and cisterns displace normal appearance. No intra or extra axial fluid collections were seen. The calvarium is intact with no evidence for fracture. The visualized po rtions of the paranasal sinuses and orbits demonstrate to be clear. Cervical spine: There is diffuse multilevel degenerative disc disease throughout the cervical spine w ith bony bony bridging along the anterior posterior aspect of C3/C4, C4/C5, C5/C6 C6/C7 C7/T1 and per haps T1/T2 not completely included. There are uncovertebral degenerative changes throughout the cervi zina spine. In addition there is also degenerative changes at anterior arch of C1 and dens with the tr ansverse ligament calcification. There is spinal canal stenosis at C3/C4 C4/C5 C6/C7. There is neural foraminal narrowing C3-C4 C6-C7. is no prevertebral soft tissue swelling. Sagittal coronal reforma tted images demonstrate no subluxation or fractures. IMPRESSION: No evidence for acute hemorrhage. No evidence for acute fracture or subluxation of the cervical spine. Diffuse multilevel degenerative disc disease with bony bridging along the anterior posterior aspect o f-and perhaps T1/T2 not completely included. There is spinal canal stenosis at C3/C4 C4/C5, C5/C6/C7. There is neural foraminal narrowing C3-C4 C6-C7. There is also degenerative changes at anterior arch of C1 and dens with the transverse ligament calci fication. Electronically signed by: Leonardo Gonzalez MD 09/17/2020 12:39 AM CDT Due to temporary technical issues with the PACS/Fluency reporting system, reports are being signed by the in house radiologist without review as a courtesy to ensure prompt reporting. The interpreting r adiologist is fully responsible for the content of the report.
== END 2020-09-17 01:27 | disposition home or self-care (01) ==
LOC: ER 21:38
DX: S29.012A Strain of muscle and tendon of back wall of thorax, initial encounter (principal); S00.90XA Unspecified superficial injury of unspecified part of head, initial encounter; E11.9 Type 2 diabetes mellitus without complications; Z79.4 Long term (current) use of insulin; E78.5 Hyperlipidemia, unspecified; I10 Essential (primary) hypertension; W01.198A Fall on same level from slipping, tripping and stumbling with subsequent striking against other object, initial encounter
CPT/HCPCS: 70450; 72125; 99283

== ENCOUNTER 2022-04-18 11:14 | Emergency (ER) | payer OTHER ==
--- OUTSIDE RECORDS SUMMARY | 2022-04-18 11:19 | XMS REPORT | Continuity of Care Document ---
:1950 Author Organization [facility] t Address [address] [place] [address] Care Team Providers Name Role Phone Petros Garcia Clementine Primary Care Physician Alise Rodarte Attending Clinician ALISE MONTGOMERY Attending Clinician Unavailable Wagner Ndiaye MD Attending Clinician Doctor Unassigned, [place] Attending Clinician Unavailable WAGNER NDIAYE Attending Clinician Unavailable DAVID ROB Attending Clinician Unavailable Therapy, [facility] Attending Clinician Unavailable David Rob MD Attending Clinician Payers Payer Name Policy Type Policy Number Effective Date Expiration Date S ource Problems Condition Condition Condition Status Onset Resolution Last Treating Co mments Source Name Details Category Date Date Treatment Clinician Date Acute Acute Disease Active Univers gastric gastric 11-17 ity of ulcer ulcer 00:00: [address] 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 11-17 ity of disease, disease, 00:00: [place] stage II stage II 00 Medica l (mild) (mild) Branch Type 2 Type 2 Disease Active Univers diabetes diabetes 11-16 ity of mellitus mellitus 00:00: [address] Hyperlipid Hyperlipid Disease Active U nivers emia emia 11-16 ity of 00:00: [place] [facility] Hypertensi Hypertensi Disease Active U nivers on on 11-16 ity of 00:00: [place] 00 Medical Branch Upper Upper Disease Active Univers gastrointe gastrointe 7-16 it y of stinal stinal 00:00: [place] hemorrhage hemorrhage 00 Me dical Branch Allergies, Adverse Reactions, Alerts Allergy Allergy Status Severity Reaction(s) Onset Inactive Treating Comm ents Source Name Type Date Date Clinician NO KNOWN Drug Active Univers ALLERGIE Class ity of S [facility] Social History Social Habit Start Date Stop Date Quantity Comments Source Exposure to 2021-11-18 2021-11-28 Not sure [facility]-CoV-2 00:00:00 09:14:00 [facility] (event) [place] Alcohol intake 2021-11-28 2021-11-28 0 /d University of 00:00:00 00:00:00 [facility] Tobacco use and 2021-11-14 2021-11-14 Smokeless tobacco Un iversity of exposure 00:00:00 00:00:00 non-user [facility] Sex Ass[birth year] At [birth year] Universit y of 00:00:00 00:00:00 [facility] Smoking Status Start Date Stop Date Source Never smoked tobacco [facility] Medications Ordered Filled Start Stop Current Ordering Indication Dosage Frequency Signature Comments Components Source Medication Medication Date Date Medication? Clinician (SIG) Name Name DICLOFENAC 2021-05 Yes [id number] APPLY 2-4 Univers SODIUM 1 % 1-04 9100 GRAMS TO ity o f gel 00:00: AFFECTED [place] 00 AREAS FOUR Medical TIMES A Branch DAY DICLOFENAC Yes [id number] APPLY 2-4 Univers SODIUM 1 % 9- 9100 GRAMS TO ity o f gel 00:00: AFFECTED [place] 00 AREAS FOUR Medical TIMES A Branch DAY DICLOFENAC 2021- No [id number] APPLY 2-4 Univers SODIUM 1 % 9-21 11-04 9100 GRAMS TO ity of gel 00:00: 00:00 AFFECTED [place] 00 :00 AREAS FOUR Medical TIMES A Branch DAY DICLOFENAC Yes [id number] APPLY 2-4 Univers SODIUM 1 % 8-03 9100 GRAMS TO ity o f gel 00:00: AFFECTED [place] 00 AREAS FOUR Medical TIMES A Branch DAY DICLOFENAC 2021- No [id number] APPLY 2-4 Univers SODIUM 1 % 8- 09- 9100 GRAMS TO ity of gel 00:00: 00:00 AFFECTED [place] 00 :00 AREAS FOUR Medical TIMES A Branch DAY sodium 2021-0 2021- No [id number] 30mg Uni vers hyaluronate 11-28 9100 ity of (viscosup) 15:30: 14:24 [place] (ORTHOVISC) 00 :00 Medical injection Branch 30 mg sodium 2021-0 2021- No [id number] 30mg 30 mg, U nivers hyaluronate 11-28 9100 Intra-ashley i ty of (viscosup) 15:30: 14:24 Barbi phillip s (ORTHOVISC) 00 :00 ONCE, 1 Medic al injection dose, On Branch 30 mg Rani 11/28/21 at 1030, Routine DICLOFENAC Yes [id number] APPLY 2-4 Univers SODIUM 1 % 10-03 9100 GRAMS TO ity o f gel 00:00: AFFECTED 00 AREAS FOUR Medical TIMES A Branch DAY DICLOFENAC 2021-0 2021- No [id number] APPLY 2-4 Univers SODIUM 1 % 10-03 08- 9100 GRAMS TO ity of gel 00:00: 00:00 AFFECTED [place] 00 :00 AREAS FOUR Medical TIMES A Branch DAY DICLOFENAC Yes [id number] APPLY 2-4 Univers SODIUM 1 % 3-08 9100 GRAMS TO ity o f gel 00:00: AFFECTED 00 AREA(S) Medical FOUR TIMES Branch DAILY DICLOFENAC 2021-0 Yes [id number] APPLY 2-4 Univers SODIUM 1 % 3-08 9100 GRAMS TO ity o f gel 00:00: AFFECTED AREA(S) Medical FOUR TIMES Branch DAILY DICLOFENAC 2021-0 Yes [id number] APPLY 2-4 Univers SODIUM 1 % 3-08 9100 GRAMS TO ity o f gel 00:00: AFFECTED AREA(S) Medical FOUR TIMES Branch DAILY DICLOFENAC 2021-0 Yes [id number] APPLY 2-4 Univers SODIUM 1 % 3-08 9100 GRAMS TO ity o f gel 00:00: AFFECTED 00 AREA(S) Medical FOUR TIMES Branch DAILY DICLOFENAC 2021-0 Yes [id number] APPLY 2-4 Univers SODIUM 1 % 3-08 9100 GRAMS TO ity o f gel 00:00: AFFECTED AREA(S) Medical FOUR TIMES Branch DAILY gabapentin 2020-05 Yes 300mg Take 300 Un danika 300 mg 2-09 mg by ity of capsule 08:56: mouth. [place] [address] Medical Branch lisinopril 2020-05 Yes 20mg Take 20 mg U nivers 20 mg 2-09 by mouth. ity of tablet 08:56: [place] [address] Medical Branch sennosides- 2020-05 Yes 2{tbl} Take 2 Un danika docusate 2-09 tablets by ity o f sodium 08:56: mouth. [place] 8.6-50 mg 42 Medical per tablet Branch traMADOL 50 2020-05 Yes 50mg Take 50 mg Univers mg tablet 2-09 by mouth. ity o f 08:56: [place] [address] Medical Branch insulin 2020-05 Yes 40U inject 40 Unive rs detemir 2-09 Units ity of U-100 100 08:56: under the [place] unit/mL 42 skin. Medical injection Branch psyllium 2020-05 Yes 1{packe Take 1 Univ ers (METAMUCIL 2-09 t} Packet by ity of FIBER 08:56: mouth. [place] [facility] gram Branch packet gabapentin 2020-05 Yes 300mg Take 300 Un danika 300 mg 2-09 mg by ity of capsule 08:56: mouth. [place] [address] Medical Branch lisinopril 2020-05 Yes 20mg Take 20 mg U nivers 20 mg 2-09 by mouth. ity of tablet 08:56: [place] [address] Medical [place] sennoside- 2020-05 Yes 2{tbl} Take 2 Un danika docusate 2-09 tablets by ity o f sodium 08:56: mouth. [place] 8.6-50 mg 42 Medical per tablet Branch traMADOL 50 2020-05 Yes 50mg Take 50 mg Univers mg tablet 2-09 by mouth. ity o f 08:56: [place] [address] Medical Branch insulin 2020-05 Yes 40U inject 40 Unive rs detemir 2-09 Units ity of U-100 100 08:56: under the [place] as unit/mL 42 skin. Medical injection Branch psyllium 2020-05 Yes 1{packe Take 1 Univ ers (METAMUCIL 2-09 t} Packet by ity of FIBER 08:56: mouth. [place] SINGLE 42 Medical 3.4 gram Branch packet gabapentin 2020-05 Yes 300mg Take 300 Un danika 300 mg 2-09 mg by ity of capsule 08:56: mouth. [place] [address] Medical Branch lisinopril 2020-05 Yes 20mg Take 20 mg U nivers 20 mg 2-09 by mouth. ity of tablet 08:56: [place] [address] Medical Branch sennosides- 2020-05 Yes 2{tbl} Take 2 Un danika docusate 2-09 tablets by ity o f sodium 08:56: mouth. [place] 8.6-50 mg 42 Medical per tablet Branch traMADOL 50 2020-05 Yes 50mg Take 50 mg Univers mg tablet 2-09 by mouth. ity o f 08:56: [place] [address] Medical Branch insulin 2020-05 Yes 40U inject 40 Unive rs detemir 2-09 Units ity of U-100 100 08:56: under the [place] as unit/mL 42 skin. Medical injection Branch psyllium 2020-05 Yes 1{packe Take 1 Univ ers (METAMUCIL 2-09 t} Packet by ity of FIBER 08:56: mouth. [place] [facility] 3.[facility] gram Branch packet gabapentin 2020-05 Yes 300mg Take 300 Un danika 300 mg 2-09 mg by ity of capsule 08:56: mouth. [place] [address] Medical Branch lisinopril 2020-05 Yes 20mg Take 20 mg U nivers 20 mg 2-09 by mouth. ity of tablet 08:56: [place] [address] Medical Branch sennoside- 2020-05 Yes 2{tbl} Take 2 Un danika docusate 2-09 tablets by ity o f sodium 08:56: mouth. [place] 8.6-50 mg 42 Medical per tablet Branch traMADOL 50 2020-05 Yes 50mg Take 50 mg Univers mg tablet 2-09 by mouth. ity o f 08:56: [place] [address] Medical Branch insulin 2020-05 Yes 40U inject 40 Unive rs detemir 2-09 Units ity of U-100 100 08:56: under the [place] as unit/mL 42 skin. Medical injection Branch psyllium 2020-05 Yes 1{packe Take 1 Univ ers (METAMUCIL 2-09 t} Packet by ity of FIBER 08:56: mouth. [place] SINGLE 42 Medical 3.4 gram Branch packet gabapentin 2020-05 Yes 300mg Take 300 Un danika 300 mg 2-09 mg by ity of capsule 08:56: mouth. [place] [address] Medical Branch lisinopril 2020-05 Yes 20mg Take 20 mg U nivers 20 mg 2-09 by mouth. ity of tablet 08:56: [address] Branch sennosides- 2020-05 Yes 2{tbl} Take 2 Un danika docusate 2-09 tablets by ity o f sodium 08:56: mouth. [place] 8.6-50 mg 42 Medical per tablet Branch traMADOL 50 2020-05 Yes 50mg Take 50 mg Univers mg tablet 2-09 by mouth. ity o f 08:56: [address] insulin 2020-05 Yes 40U inject 40 Unive rs detemir 2-09 Units ity of U-100 100 08:56: under the [place] as unit/mL 42 skin. Medical injection Branch psyllium 2020-05 Yes 1{packe Take 1 Univ ers (METAMUCIL 2-09 t} Packet by ity of FIBER 08:56: mouth. [place] SINGLE) Medical 3.4 gram Branch packet clopidogreL 2020-0 Yes 75mg Take 75 mg Univers 75 mg 1-31 by mouth. ity of tablet 08:07: [place] [address] Medical [place] clopidogreL 2020-0 Yes 75mg Take 75 mg Univers 75 mg 1-31 by mouth. ity of tablet 08:07: [address] clopidogreL 2020-0 Yes 75mg Take 75 mg Univers 75 mg 1-31 by mouth. ity of tablet 08:07: [address] clopidogreL 2020-0 Yes 75mg Take 75 mg Univers 75 mg 1-31 by mouth. ity of tablet 08:07: [address] clopidogreL 2020-0 Yes 75mg Take 75 mg Univers 75 mg 1-31 by mouth. ity of tablet 08:07: [address] diclofenac 2018- Yes TAKE 1 Unive rs 75 mg EC 2-24 TABLET BY ity of tablet 00:00: MOUTH [place] 00 TWICE Medical DAILY WITH Branch MEALS FOR 30 DAYS diclofenac 2018-05 Yes TAKE 1 Unive rs 75 mg EC 2-24 TABLET BY ity of tablet 00:00: MOUTH [place] 00 TWICE Medical DAILY WITH Branch MEALS FOR 30 DAYS diclofenac 2018-05 Yes TAKE 1 Unive rs 75 mg EC 2-24 TABLET BY ity of tablet 00:00: MOUTH [place] 00 TWICE Medical DAILY WITH Branch MEALS FOR 30 DAYS diclofenac 2018-05 Yes TAKE 1 Unive rs 75 mg EC 2-24 TABLET BY ity of tablet 00:00: MOUTH 00 TWICE Medical DAILY WITH Branch MEALS FOR 30 DAYS diclofenac 2018-05 Yes TAKE 1 Unive rs 75 mg EC 2-24 TABLET BY ity of tablet 00:00: MOUTH 00 TWICE Medical DAILY WITH Branch MEALS FOR 30 DAYS LIRAGLUTIDE Yes inject Univ ers (VICTOZA 6-21 under the ity of 3-JOLEEN [place]) 09:07: skin. [place] [address] Medical Branch LIRAGLUTIDE Yes inject Univ ers (VICTOZA 6-21 under the ity of 3-JOLEEN [place]) 09:07: skin. [address] Branch LIRAGLUTIDE Yes inject Univ ers (VICTOZA 6-21 under the ity of 3-JOLEEN [place]) 09:07: skin. [address] Branch LIRAGLUTIDE Yes inject Univ ers (VICTOZA 6-21 under the ity of 3-JOLEEN [place]) 09:07: skin. [address] Branch LIRAGLUTIDE Yes inject Univ ers (VICTOZA 6-21 under the ity of 3-JOLEEN [place]) 09:07: skin. [address] Branch DULAGLUTIDE Yes inject Univ ers (TRULICITY 5-16 under the ity of [place]) 14:58: skin [place] 17 weekly. Medical Branch DULAGLUTIDE Yes inject Univ ers (TRULICITY 5-16 under the ity of [place]) 14:58: skin [place] 17 weekly. Medical Branch DULAGLUTIDE Yes inject Univ ers (TRULICITY 5-16 under the ity of [place]) 14:58: skin [place] 17 weekly. Medical Branch DULAGLUTIDE Yes inject Univ ers (TRULICITY 5-16 under the ity of [place]) 14:58: skin [place] 17 weekly. Medical Branch DULAGLUTIDE Yes inject Univ ers (TRULICITY 5-16 under the ity of [place]) 14:58: skin [place] 17 weekly. Medical Branch HUMULIN R 2015-05 Yes GIVE 80 Unive rs U-500, 2-29 UNITS ity of CONC, 00:00: BEFORE [place] KWIKPEN 500 00 BREAKFAST Med ical unit/mL (3 AND DINNER Bra nch mL) InPn AND INCREASE DIRECTED TDD 220 HUMULIN R 2015-05 Yes GIVE 80 Unive rs U-500, 2-29 UNITS ity of CONC, 00:00: BEFORE [place] KWIKPEN 500 00 BREAKFAST Med ical unit/mL (3 AND DINNER Bra nch mL) InPn AND INCREASE DIRECTED TDD 220 HUMULIN R 2015-05 Yes GIVE 80 Unive rs U-500, 2-29 UNITS ity of CONC, 00:00: BEFORE [place] KWIKPEN 500 00 BREAKFAST Med ical unit/mL (3 AND DINNER Bra nch mL) InPn AND INCREASE DIRECTED TDD 220 HUMULIN R 2015-05 Yes GIVE 80 Unive rs U-500, 2-29 UNITS ity of CONC, 00:00: BEFORE [place] KWIKPEN 500 00 BREAKFAST Med ical unit/mL (3 AND DINNER Bra nch mL) InPn AND INCREASE DIRECTED TDD 220 HUMULIN R 2015-05 Yes GIVE 80 Unive rs U-500, 2-29 UNITS ity of CONC, 00:00: BEFORE [place] KWIKPEN 500 00 BREAKFAST Med ical unit/mL (3 AND DINNER Bra nch mL) InPn AND INCREASE DIRECTED TDD 220 CIALIS 20 2015-05 Yes TAKE 1 Univer s mg tablet 2-28 TABLET BY ity o f 00:00: ORAL ROUTE [place] 00 EVERY WEEK Medical NEEDED Branch CIALIS 20 2015-05 Yes TAKE 1 Univer s mg tablet 2-28 TABLET BY ity o f 00:00: ORAL ROUTE [place] 00 EVERY WEEK Medical NEEDED Branch CIALIS 20 2015-05 Yes TAKE 1 Univer s mg tablet 2-28 TABLET BY ity o f 00:00: ORAL ROUTE [place] EVERY WEEK Medical NEEDED Branch CIALIS 20 2015-05 Yes TAKE 1 Univer s mg tablet 2-28 TABLET BY ity o f 00:00: ORAL ROUTE [place] 00 EVERY WEEK Medical NEEDED Branch CIALIS 20 2015-05 Yes TAKE 1 Univer s mg tablet 2-28 TABLET BY ity o f 00:00: ORAL ROUTE [place] EVERY WEEK Medical NEEDED Branch atorvastati Yes 40mg Take 40 mg Univers n 80 mg 7-17 by mouth. ity of tablet 00:00: Medical Branch atorvastati Yes 40mg Take 40 mg Univers n 80 mg 7-17 by mouth. ity of tablet 00:00: Medical Branch atorvastati 2016-0 Yes 40mg Take 40 mg Univers n 80 mg 7-17 by mouth. ity of tablet 00:00: [place] Medical [place] atorvastati 2016-0 Yes 40mg Take 40 mg Univers n 80 mg 7-17 by mouth. ity of tablet 00:00: [place] Medical [place] atorvastati 2016-0 Yes 40mg Take 40 mg Univers n 80 mg 7-17 by mouth. ity of tablet 00:00: [address] Vital Signs Vital Name Observation Time Observation Value Comments Source Systolic blood 2021-11-28 14:15:00 105 mm[Hg] Univer sity [facility] pressure [facility] Diastolic blood 2021-11-28 14:15:00 63 [facility]Hg[facility] Heart rate 2021-11-28 14:15:00 76 /min [facility] Body weight 2021-11-28 14:15:00 135.172 kg [facility] BMI 2021-11-28 14:15:00 39.32 kg/m2 [facility] Oxygen saturation 2021-11-28 14:15:00 98 /min [facility] in Arterial blood [facility] anch by Pulse oximetry Procedures Procedure Date / Time Performing Clinician Source Performed INSURANCE CORRESPONDENCE 2021-11-08 05:01:00 Doctor Unassigned, [facility] [place] [facility] Encounters Start End Encounter Admission Attending Care Care Encounter Source Date/Time Date/Time Type Type Clinicians Facility Department ID 2022-03-06 2022-03-06 [place] [id number] Univers 00:00:00 00:00:00 Alise Down [facility] [id number] it y of [place] [id number] [place] as VEL?BLEA [phone] Ma pablo [address] MEDICAL OFFICE BUILDING 2022-01-22 2022-01-22 Demetri Montgomery ORAMIA [id number] Univers 00:00:00 00:00:00 [facility] [id number] it y of [place] [id number] [place] as VEL?BLEA [id number] Ma pablo [address] MEDICAL OFFICE BUILDING 2021-12-04 2021-12-04 Refill Valentina [facility] [[email or web address] [id number] Univers 00:00:00 00:00:00 Alise Soler HEALTH [id number] it y of [place] [id number] [place] as VEL?BLEA [id number] Ma pablo VILLALBA [address] [facility] 2021-11-28 2021-11-28 [facility] [id number] Univers 09:30:00 09:45:00 Visit Alise HEALTH [id number] it y of [place] [id number] [place] as VEL?BLEA [id number] Ma pablo VILLALBA [address] [place] [address] 2021-11-28 2021-11-28 [facility] [id number] Univers 09:30:00 09:30:00 [facility] 2021-11-28 2021-11-28 Outpatient Rubén MONTGOMERY [facility] [id number] Univers 09:30:00 09:30:00 [facility] 2021-11-21 2021-11-21 [facility] [id number] Univers 09:30:00 10:25:10 [facility] 2021-11-21 2021-11-21 Office Wagner Ndiaye [facility] [[email or web address]] 1.2.840. [id number] Univers 09:30:00 10:25:10 Visit Alise Montgomery [facility] [id number] ity of [place] [id number] [place] as VEL?BLEA [id number] Ma pablo VILLALBA [address] [place] [address] 2021-11-21 2021-11-21 [facility] [id number] Univers 09:30:00 10:25:10 [facility] 2021-11-14 2021-11-14 [facility] [id number] [id number] Univers 09:30:00 09:45:00 Visit [facility] [id number] it y of [place] [id number] [place] as VEL?BLEA [id number] Ma pablo VILLALBA 198 [facility] OFFICE [facility] 2021-11-14 2021-11-14 Outpatient [facility] [id number] Univers 09:30:00 09:30:00 ALISE ity [facility] 2021-11-08 2021-11-08 Telephone [facility] [id number] Univers 00:00:00 00:00:00 Alise S HEALTH [id number] [facility] [id number] [place] VEL?BLEA [phone] Ma pablo VILLALBA [address] [facility] OFFICE [facility] 2021-11-08 2021-11-08 Orders Doctor PAUL [id number] [id number] Univers 00:00:00 00:00:00 Only Unassigned, FIFI 350.1.13.10 ity of [place] [facility] [id number] [place] as [phone] [address] 2021-10-31 2021-10-31 Office [facility] [id number] Univers 14:00:00 14:15:00 Visit Alise S HEALTH [id number] it y of [place] [id number] [place] as VEL?BLEA [id number] Ma pablo VILLALBA 198 [facility] 2021-10-31 2021-10-31 Outpatient [facility] [id number] Univers 14:00:00 14:06:40 ALISE ity [facility] 2021-10-31 2021-10-31 Outpatient R [facility] [id number] Univers 14:00:00 14:00:00 ALISE ity [facility] 2021-10-31 2021-10-31 Orders Doctor PAUL [id number] [id number] Univers 00:00:00 00:00:00 Only Unassigned, FIFI 350.1.13.10 ity of [place] [facility] 4.2.7.2.686 [place] as [id number] [address] 2021-10-03 2021-10-03 [facility] 1.2.840.114 [id number] Univers 00:00:00 00:00:00 Alise S HEALTH 350.1.13.10 it y of [place] [id number] [place] as VEL?BLEA [id number] Ma pablo VILLALBA [address] [facility] OFFICE [facility] 2021-08-28 2021-08-28 [facility] 1.2.840.114 [id number] Univers 00:00:00 00:00:00 Alise S HEALTH 350.1.13.10 it y of [place] [id number] [place] as VEL?BLEA [id number] Ma pablo VILLALBA 198 [facility] 2021-08-05 2021-08-05 [facility] 1.2.840.114 [id number] Univers 00:00:00 00:00:00 Alise S HEALTH 350.1.13.10 it y of [place] 4.2.7.2.686 [place] as VEL?BLEA [id number] Ma pablo VILLALBA 198 [facility] 2021-07-09 2021-07-09 [facility] 1.2.840.114 [id number] Univers 00:00:00 00:00:00 Alise S HEALTH 350.1.13.10 it y of [place] 4.2.7.2.686 [place] as VEL?BLEA [id number] Ma pablo VILLALBA 198 [facility] 2021-07-08 2021-07-08 [facility] 1.2.840.114 [id number] Univers 00:00:00 00:00:00 Alise S HEALTH 350.1.13.10 it y of [place] 4.2.7.2.686 [place] as VEL?BLEA [id number] Ma pablo VILLALBA [address] [facility] OFFICE [facility] 2021-07-02 2021-07-02 [facility] 1.2.840.114 [id number] Univers 00:00:00 00:00:00 Alise S HEALTH 350.1.13.10 it y of [place] 4.2.7.2.686 [place] as VEL?BLEA [id number] Me pablo VILLALBA [address] [facility] OFFICE [facility] 2021-06-06 2021-06-06 [facility]a [facility] 1.2.840.114 [id number] Univers 00:00:00 00:00:00 Alise S HEALTH 350.1.13.10 it y of [place] 4.2.7.2.686 [place] as VEL?BLEA [id number] Ma pablo VILLALBA [address] [facility] OFFICE [facility] 2021-05-06 2021-05-06 [facility] [id number] Univers 00:00:00 00:00:00 [facility] HEALTH 350.1.13.10 it y of [place] [id number] [place] as VEL?BLEA [id number] Ma pablo VILLALBA 198 [facility] 2021-04-18 2021-04-18 Office [facility] 1.2.840.114 [id number] Univers 08:30:00 08:45:00 Visit [facility] [id number] it y of [place] [id number] Rupetr as VEL?BLEA [id number] Ma pablo VILLALBA [address] [place] [address] 2021-04-18 2021-04-18 Outpatient Rubén MONTGOMERY [facility] [id number] Univers 08:30:00 08:30:00 [facility] 2021-04-18 2021-04-18 Outpatient Rubén MONTGOMERY [facility] [id number] Univers 08:30:00 08:30:00 [facility] 2021-04-18 2021-04-18 Outpatient Rubén MONTGOMERY [facility] [id number] Univers 08:30:00 08:30:00 [facility] 2021-04-11 2021-04-11 Outpatient Rubén MONTGOMERY [facility] [id number] Univers 09:00:00 09:26:52 [facility] 2021-04-11 2021-04-11 Office [facility] 1.2.840.114 [id number] Univers 08:46:35 09:26:52 Visit [facility] [id number] it y of [place] [id number] [place] as VEL?BLEA [phone] Ma pablo VILLALBA [address] [place] [address] OFFICE [facility] 2021-04-11 2021-04-11 Outpatient Rubén MONTGOMERY [facility] [id number] Univers 09:00:00 09:00:00 [facility] 2021-04-04 2021-04-04 Outpatient [facility] [id number] Univers 13:15:00 13:31:07 [facility] 2021-04-04 2021-04-04 Office [facility] [id number] Univers 12:53:17 13:31:07 Visit Alise Soler [facility] [id number] it y of [place] [id number] [place] as VEL?BLEA [phone] Ma pablo [address] 2021-04-04 2021-04-04 Outpatient Rubén MONTGOMERY [facility] [id number] Univers 13:15:00 13:15:00 [facility] 2021-04-04 2021-04-04 Orders Doctor PAUL [id number] [id number] Univers 00:00:00 00:00:00 Only Unassigned, FIFI 350.1.13.10 ity of [place] [facility] 4.2.7.2.686 Rupert as [phone] [address] 2021-04-01 2021-04-01 Telephone [facility] 1.2.840.114 [id number] Univers 00:00:00 00:00:00 Wagner Dinh UniYu 350.1.13.10 it y of [place] [id number] [place] as VEL?BLEA [id number] Ma pablo VILLALBA [address] [place] [address] OFFICE [facility] 2021-03-04 2021-03-04 Office [facility] [id number] Univers 14:47:12 15:14:54 Visit Wagner L HEALTH 350.1.13.10 it y of [place] [id number] [place] as VEL?BLEA [id number] Me pablo VILLALBA [address] [facility] OFFICE [facility] 2021-03-04 2021-03-04 Outpatient R SENTHIL [facility] [id number] Univers 14:45:00 15:14:54 WAGNERDIVYA campuzano [facility] 2021-02-28 2021-02-28 Telephone [facility] 1.2.840.114 [id number] Univers 00:00:00 00:00:00 Wagner Dinh UniYu 350.1.13.10 [facility] [id number] [place] as VEL?BLEA [phone] Ma pablo VILLALBA 198 [facility] 2021-02-28 2021-02-28 Telephone [facility] 1.2.840.114 [id number] Univers 00:00:00 00:00:00 Wagner Dinh UniYu 350.1.13.10 it y of [place] 4.2.7.2.686 Rupert as VEL?BLEA [phone] Ma pablo VILLALBA [address] [place] [address] 2021-02-07 2021-02-07 Outpatient R LUCIANA [facility] [id number] Univers 15:00:00 15:00:00 DAVID campuzano [facility] 2021-02-07 2021-02-07 Nurse Therapy, Adc Covid Infusion [facility] [[email or web address]] 1.2.840.114 [id number] Univers 09:56:05 10:56:05 Visit David Rob 350.1.13.10 it[place] [id number] [facility] [address] [place] 2021-02-07 2021-02-07 Orders Doctor PAUL 1.2.840.114 [id number] Univers 00:00:00 00:00:00 Only Unassigned, FIFI 350.1.13.10 ity of [place] [facility] 4.2.7.2.686 Rupert as [phone] [facility] [address] [place] 2021-01-08 2021-01-08 [facility] 1.2.753.265 [id number] Univers 00:00:00 00:00:00 [facility] 350.1.13.10 it y of Surgical 4.2.7.2.686 Rupert as Specialti [phone] Ma dical es 198 [facility] 2021-01-04 2021-01-04 Refill Senthil [facility] [[email or web address]] 1.2.052.118 [id number] Univers 00:00:00 00:00:00 [facility] 350.1.13.10 it y of [place] 4.2.7.2.686 Rupert as Vel?Blea [phone] Ma pablo villalba [address] [place] [facility] 2020-11-29 2020-11-29 Telephone [facility] 1.2.840.114 [id number] Univers 00:00:00 00:00:00 [facility] 350.1.13.10 it y of Surgical 4.2.7.2.686 Ru[place] as Specialti [phone] Ma pablo cisneros 198 [facility] 2020-10-09 2020-10-09 Telephone [facility] [id number] Univers 00:00:00 00:00:00 Alise S Health 350.1.13.10 it y of Surgical 4.2.7.2.686 Rupert as Specialti [phone] Ma pablo cisneros [address] [place] [address] 2020-09-27 2020-09-27 Outpatient [facility] [id number] Univers 13:45:00 13:45:00 [facility] 2020-09-25 2020-09-25 Outpatient Rubén MONTGOMERY [facility] [id number] Univers 09:30:00 09:30:00 [facility] 2020-09-11 2020-09-11 [facility]phone [facility] [id number] 00:00:00 00:00:00 Alise S Health 350.1.13.10 Surgical 4.2.7.2.686 Specialti [phone] es [place]ito [place] 2020-09-11 2020-09-11 [facility]phone [facility] 1.2.491.925 [id number] Univers 00:00:00 00:00:00 Alise S Health 350.1.13.10 it y of Surgical 4.2.7.2.686 Rupert as Specialti [phone] Ma dical es 198 [facility] 2020-08-09 2020-08-09 Office [facility] 1.2.840.114 [id number] 09:00:23 09:30:55 Visit [facility] 350.1.13.10 Surgical 4.2.7.2.686 Specialti [phone] [address] 2020-08-09 2020-08-09 [facility] 1.2.840.114 [id number] Univers 09:00:23 09:30:55 Visit [facility] 350.1.13.10 it y of Surgical 4.2.7.2.686 Ru[place] as Specialti [phone] Ma dical es 198 [facility] 2020-08-09 2020-08-09 Outpatient [facility] [id number] Univers 09:15:00 09:15:00 [facility] 2020-08-02 2020-08-02 [facility] 1.2.840.114 [id number] Univers 08:58:30 09:23:28 Visit [facility] 350.1.13.10 it y of Surgical 4.2.7.2.686 Rupert as Specialti [phone] Ma dical es 198 [facility] 2020-08-02 2020-08-02 Outpatient [facility] [id number] Univers 09:15:00 09:15:00 [facility] 2020-07-26 2020-07-26 [facility] 1.2.840.114 [id number] Univers 10:15:08 10:30:08 Visit [facility] 350.1.13.10 it y of Surgical 4.2.7.2.686 Rupert as Specialti [phone] Ma dical es 198 [facility] 2020-07-26 2020-07-26 Outpatient [facility] [id number] Univers 10:30:00 10:30:00 [facility] 2020-07-19 2020-07-19 Orders Doctor PAUL 1.2.840.114 [id number] Univers 00:00:00 00:00:00 Only Unassigned, FIFI 350.1.13.10 ity of [place] [facility] 4.2.7.2.686 Rupert as [phone] [address] 2020-06-12 2020-06-12 Telephone [facility] 1.2.840.114 [id number] Univers 00:00:00 00:00:00 [facility] [employer] 350.1.13.10 it y of Surgical 4.2.7.2.686 Rupert as Specialti [phone] Ma dical es 198 [facility] 2020-04-10 2020-04-10 [facility] 1.2.840.114 [id number] Univers 00:00:00 00:00:00 [facility] 350.1.13.10 it y of Surgical 4.2.7.2.686 Rupert as Specialti [phone] Ma dical es 198 [facility] 2020-02-13 2020-02-13 Telephone [facility] 1.2.840.114 [id number] Univers 00:00:00 00:00:00 Wagner [employer] 350.1.13.10 it y of Surgical 4.2.7.2.686 Rupert as Specialti [phone] Ma dical es 198 [facility] 2020-02-03 2020-02-03 [facility] 1.2.840.114 [id number] Univers 09:00:01 09:15:01 Visit [facility] 350.1.13.10 it y of Surgical 4.2.7.2.686 Rupert as Specialti [phone] Ma dical es 198 [facility] 2020-02-03 2020-02-03 Outpatient R [facility] [id number] Univers 09:00:00 09:00:00 ALISE ity [facility] 2020-01-27 2020-01-27 Office [facility] 1.2.840.114 [id number] Univers 08:49:51 09:20:42 Visit [facility] 350.1.13.10 it y of Surgical 4.2.7.2.686 Rupert as Specialti [phone] Me dical es 198 [facility] 2020-01-27 2020-01-27 Outpatient R [facility] [id number] Univers 09:00:00 09:00:00 ALISE campuzano [facility] 2020-01-24 2020-01-24 Telephone [facility] 1.2.840.114 [id number] Univers 00:00:00 00:00:00 [facility] 350.1.13.10 it y of Surgical 4.2.7.2.686 Rupert as Specialti [phone] Ma dical es 198 [facility] 2020-01-20 2020-01-20 Office [facility] 1.2.840.114 [id number] Univers 10:28:32 11:24:19 Visit Alise [facility] 350.1.13.10 it y of Surgical 4.2.7.2.686 Rupert as Specialti [phone] Ma dical es 198 [facility] 2020-01-20 2020-01-20 Outpatient Rubén [facility] [id number] Univers 10:45:00 10:45:00 ALISE latisha [facility] 2020-01-17 2020-01-17 Telephone [facility] 1.2.840.114 [id number] Univers 00:00:00 00:00:00 Wagner Dinh [employer] 350.1.13.10 it y of Surgical 4.2.7.2.686 Rupert as Specialti [phone] Ma dical es 198 [facility] 2020-01-17 2020-01-17 Orders Doctor PAUL 1.2.840.114 [id number] Univers 00:00:00 00:00:00 Only Unassigned, FIFI 350.1.13.10 ity of [place] [facility] 4.2.7.2.686 Rupert as [phone] [address] 2020-01-11 2020-01-11 [facility]phone [facility] 1.2.840.114 [id number] Univers 00:00:00 00:00:00 [facility] 350.1.13.10 it y of Surgical 4.2.7.2.686 Rupert as Specialti [phone] Ma dical es 198 [facility] 2019-12-06 2019-12-06 [facility] 1.2.840.114 [id number] Univers 15:29:57 23:59:00 Encounter Al[facility] 350.1.13.10 ity of Surgical 4.2.7.2.686 Rupert as Specialti [phone] Ma dical es 809 [facility] 2019-12-06 2019-12-06 Outpatient R [facility] [id number] Univers 15:00:00 15:00:00 ALISE ity of [facility] 2019-12-06 2019-12-06 [facility] 1.2.840.114 [id number] Univers 14:39:03 14:54:03 Visit Alise Mora 350.1.13.10 it y of Surgical 4.2.7.2.686 Rupert as Specialti [phone] Ma dical es 198 [facility] 2019-11-21 2019-11-21 [facility] 1.2.701.014 [id number] Univers 00:00:00 00:00:00 [facility] 350.1.13.10 it y of Surgical 4.2.7.2.686 Ru[place] as Specialti [phone] Ma dical es 198 [facility] 2019-10-25 2019-10-25 Telephone [facility] 1.2.813.778 [id number] Univers 00:00:00 00:00:00 lAise [facility] 350.1.13.10 it y of Surgical 4.2.7.2.686 Rupert as Specialti [phone] Ma dical es 198 [facility] 2019-09-27 2019-09-27 [facility] 1.2.847.209 [id number] Univers 00:00:00 00:00:00 [facility] 350.1.13.10 it y of Surgical 4.2.7.2.686 Rupert as Specialti [phone] Ma dical es 198 [facility] 2019-08-29 2019-08-29 Telephone [facility] 1.2.840.114 [id number] Univers 00:00:00 00:00:00 Wagner [place] 350.1.13.10 i ty [place] [phone] Ma dical nal 198 [facility] 2019-07-04 2019-08-05 Office [facility] 1.2.840.114 [id number] Univers 13:16:33 11:10:18 Visit [facility] 350.1.13.10 it y of Surgical 4.2.7.2.686 Rupert as Specialti [phone] Ma dical es 198 [facility] 2019-07-15 2019-07-15 Refill [facility] 1.2.840.114 [id number] Univers 00:00:00 00:00:00 [facility] 350.1.13.10 it y of Surgical 4.2.7.2.686 Rupert as Specialti [phone] Ma dical es 198 [facility] 2019-07-04 2019-07-04 Outpatient [facility] [id number] Univers 13:30:00 13:30:00 [facility] 2019-06-27 2019-06-27 [facility] 1.2.840.114 [id number] Univers 13:15:24 13:35:48 Visit [facility] 350.1.13.10 it y of Surgical 4.2.7.2.686 Rupert as Specialti [phone] Ma dical es 198 [facility] 2019-06-27 2019-06-27 Outpatient R [facility] [id number] Univers 13:30:00 13:30:00 [facility] 2019-06-21 2019-06-21 [facility] 1.2.933.295 [id number] Univers 00:00:00 00:00:00 [facility] 350.1.13.10 it y of Surgical 4.2.7.2.686 Rupert as Specialti [phone] Ma dical es 198 [facility] 2019-06-20 2019-06-20 Office [facility] 1.2.840.114 [id number] Univers 13:18:57 13:52:29 Visit [facility] 350.1.13.10 it y of Surgical 4.2.7.2.686 Rupert as Specialti [phone] Ma dical es 198 [facility] 2019-06-20 2019-06-20 Telephone [facility] 1.2.840.114 [id number] Univers 00:00:00 00:00:00 [facility] 350.1.13.10 it y of Surgical 4.2.7.2.686 Rupert as Specialti [phone] Ma dical es 198 [facility] 2019-06-14 2019-06-14 Orders Doctor PAUL 1.2.840.114 [id number] Univers 00:00:00 00:00:00 Only Unassigned, FIFI 350.1.13.10 ity of [place] [facility] 4.2.7.2.686 Rupert as [phone] [address] 2019-06-03 2019-06-03 Outpatient R [facility] [id number] Univers 08:00:00 08:17:44 WAGNER ity of [facility] 2019-06-03 2019-06-03 Office [facility] 1.2.829.037 [id number] Univers 07:58:56 08:17:44 Visit [facility] 350.1.13.10 it y of Surgical 4.2.7.2.686 Rupert as Specialti [phone] Ma dical es 198 [facility] 2019-05-23 2019-05-23 Orders Doctor MILLER 1.2.840.114 [id number] Univers 00:00:00 00:00:00 Only Unassigned, FIFI 350.1.13.10 ity of [place] [facility] 4.2.7.2.686 Rupert as [phone] [address] 2019-05-17 2019-05-17 Orders Doctor PAUL 1.2.840.114 [id number] Univers 00:00:00 00:00:00 Only Unassigned, FIFI 350.1.13.10 ity of [place] [facility] 4.2.7.2.686 Rupert as [phone] [address] 2018-12-16 2018-12-16 [facility] 1.2.719.953 [id number] Univers 00:00:00 00:00:00 Wagner L [facility] 350.1.13.10 it y of Surgical 4.2.7.2.686 Rupert as Specialti [phone] Ma dical es 198 [facility] 2018-12-07 2018-12-07 Office [facility] 1.2.840.114 [id number] Univers 13:44:41 14:25:18 Visit [facility] 350.1.13.10 it y of Surgical 4.2.7.2.686 Rupert as Specialti [phone] Ma dical es 198 [facility] 2018-11-30 2018-11-30 [facility] 1.2.840.114 [id number] Univers 15:08:02 15:48:29 Visit [facility] 350..13.10 it y of Surgical 4.2.7.2.686 Rupert as Specialti [phone] Ma dicms es 198 [facility] Results This patient has no known results.
[2022-04-18] MEDS ORDERED: DIAZEPAM 5 MG TABLET ONE (13:52)
[2022-04-18] MEDS ORDERED: MORPHINE 4 MG/ML SYR ONE (13:53)
[2022-04-18] MEDS ORDERED: ONDANSETRON 4 MG (ODT) TAB ONE (13:53)
[2022-04-18] MEDS ORDERED: dexAMETHasone 10 MG/ML VIAL ONE (13:53)
--- NOTE | 2022-04-18 14:46 | ER ---
Nurse's Notes [facility] Name: Brayan Carrion Age: 71 yrs Sex: Male : 1950 Arrival Date: 04/18/2022 Time: 11:20 Bed 9 Private MD: Ian Garcia C Diagnosis: Low back pain Presentation: 04/18 12:41 Chief complaint: Patient states: right lower back pain into right buttock x2 weeks. kb3 Denies injury. Was evaluated by ortho with no findings on 04/14 and referred to pain management. Coronavirus screen: Vaccine status: Patient reports receiving the 2nd dose of the covid vaccine. Client denies travel out of the [place] in the last 14 days. Ebola Screen: Patient negative for fever greater than or equal to 101.5 degrees Fahrenheit, and additional compatible Ebola Virus Disease symptoms Patient denies exposure to infectious person. Patient denies travel to an Ebola-affected area in the 21 days before illness onset. Initial Sepsis Screen: Does the patient meet any 2 criteria? No. Patient's initial sepsis screen is negative. Does the patient have a suspected source of infection? No. Patient's initial sepsis screen is negative. Risk Assessment: Do you want to hurt yourself or someone else? Patient reports no desire to harm self or others. Onset of symptoms was April 04, 2022. 12:41 Method Of Arrival: Wheelchair kb3 12:41 Acuity: CLARE 4 kb3 Triage Assessment: 12:43 General: Appears in no apparent distress. uncomfortable, Behavior is calm, cooperative. kb3 Pain: Complains of pain in right low back Pain radiates to right gluteus arnav Pain currently is 9 out of 10 on a pain scale. Historical: - Allergies: 12:43 No Known Allergies; kb3 - Home Meds: 12:43 gabapentin 300 mg Oral cap 1 cap 3 times per day [Active]; Humalog 100 unit/mL Sub-Q kb3 crtg [Active]; Invokana 100 mg Oral tab 1 tab once daily [Active]; lisinopril 20 mg Oral tab 1 tab once daily [Active]; Tramadol Oral [Active]; aspirin 81 mg Oral chew 1 tab once daily [Active]; atorvastatin 80 mg Oral tab 1 tab once daily [Active]; - PMHx: 12:43 Diabetes - IDDM; Hyperlipidemia; Hypertension; Neuropathy; Chronic pain; CAD; kb3 - PSHx: 12:43 Coronary stent; kb3 - Immunization history:: Adult Immunizations up to date, Client reports receiving the 2nd dose of the Covid vaccine. - Social history:: Smoking status: Patient denies any tobacco usage or history of. Screenin:14 [facility] ED Fall Risk Assessment (Adult) History of falling in the last 3 months, jl7 including since admission No falls in past 3 months (0 pts) Confusion or Disorientation No (0 pts) Intoxicated or Sedated No (0 pts) Impaired Gait No (0 pts) Mobility Assist Device Used No (0 pt) Altered Elimination No (0 pt) Score/Fall Risk Level 0 - 2 = Low Risk Oriented to surroundings, Maintained a safe environment, Educated pt \T\ family on fall prevention, incl call for assistance when getting out of bed. Humpty Dumpty Scale Fall Assessment Tool (age< 18yrs) Gender Male (2 pts). Abuse screen: Denies threats or abuse. Denies injuries from another. Nutritional screening: No deficits noted. Tuberculosis screening: No symptoms or risk factors identified. Fall Risk No fall in past 12 months (0 pts). No secondary diagnosis (0 pts). No IV (0 pts). Ambulatory Aid- None/Bed Rest/Nurse Assist (0 pts). Gait- Normal/Bed Rest/Wheelchair (0 pts) Mental Status- Oriented to own ability (0 pts). Total Redmond Fall Scale indicates No Risk (0-24 pts). Assessment: 14:14 General: Appears in no apparent distress. uncomfortable, Behavior is calm, cooperative, jl7 appropriate for age. Pain: Complains of pain in right low back Pain currently is 9 out of 10 on a pain scale. Neuro: Level of Consciousness is awake, alert, obeys commands, Oriented to person, place, time, situation. Cardiovascular: Patient's skin is warm and dry. Respiratory: Airway is patent Respiratory effort is even, unlabored, Respiratory pattern is regular, symmetrical. Derm: Skin is pink, warm \T\ dry. Vital Signs: 12:41 BP 119 / 68; Pulse 70; Resp 20; Temp 97.7; Pulse Ox 99% ; Weight 136.08 kg; Height 6 kb3 ft. 1 in. (185.42 cm); Pain 9/10; 14:00 BP 116 / 68; Pulse 78; Resp 16; Pulse Ox 100% ; Pain 9/10; jl7 15:02 BP 114 / 79; Pulse 62; Resp 18; Pulse Ox 97% ; Pain 6/10; kb3 12:41 Body Mass Index 39.58 (136.08 kg, 185.42 cm) kb3 ED Course: 11:20 Patient arrived in ED. rg4 11:20 Ian Garcia MD is Private Physician. rg4 11:29 Dwain Putnam PA is PHCP. jmm 11:29 Duane Cuevas MD is Attending Physician. jmm 12:43 Triage completed. kb3 12:43 Arm band placed on right wrist. kb3 13:47 Carolyn Cloud RN is Primary Nurse. jl7 14:14 Patient has correct armband on for positive identification. Call light in reach. Side jl7 rails up X 1. Pulse ox on. NIBP on. 15:02 Patient did not have IV access during this emergency room visit. kb3 15:03 No provider procedures requiring assistance completed. kb3 Administered Medications: 14:08 Drug: Decadron (dexamethasone) 10 mg Route: IM; Site: left deltoid; jl7 15:02 Follow up: Response: No adverse reaction; Pain is decreased kb3 14:08 Drug: morphine 4 mg Route: IM; Site: right deltoid; jl7 15:02 Follow up: Response: No adverse reaction; Pain is decreased kb3 14:08 Drug: Ondansetron 4 mg Route: PO; jl7 15:01 Follow up: Response: No adverse reaction; Pain is decreased kb3 14:08 Drug: Valium (diazepam) 5 mg Route: PO; jl7 15:01 Follow up: Response: No adverse reaction; Pain is decreased kb3 Medication: 14:14 VIS not applicable for this client. jl7 Outcome: 14:45 Discharge ordered by . vani 15:02 Discharged to home via wheelchair. kb3 15:02 Condition: stable 15:02 Discharge instructions given to patient, Instructed on discharge instructions, follow up and referral plans. medication usage, Demonstrated understanding of instructions, follow-up care, medications, Prescriptions given X 2. 15:03 Patient left the ED. kb3 Signatures: Dwain Putnam PA PA jmm Garcia, Rubi rg4 Carolyn Cloud RN RN jl7 Cesia Evans RN RN kb3 Corrections: (The following items were deleted from the chart) 12:45 12:43 Home Meds: clopidogrel 75 mg Oral tab 1 tab once daily; kb3 kb3
--- NOTE | 2022-04-18 14:46 | EDPHYS ---
Physician Documentation [facility] Name: Brayan Carrion Age: 71 yrs Sex: Male : 1950 Arrival Date: 04/18/2022 Time: 11:20 Bed 9 Private MD: Ian Garcia C ED Physician Duane Cuevas HPI: 04/18 11:30 This 71 yrs old Male presents to ER via Wheelchair with complaints of Back Pain. jmm 11:30 The patient presents with pain that is acute. The symptoms are located in the low back. jmm Onset: The symptoms/episode began/occurred gradually. The pain radiates. This is a 71-year-old male with history of diabetes mellitus, hyperlipidemia, hypertension the presents emerged department with complaints of right lower back pain which radiates into his buttock. Symptoms began gradually over the past few weeks after patient states that he worked out. Denies any radiation into the leg. Denies any bowel or bladder issues. Denies any lower extremity weakness. Patient is scheduled to see pain management this Thursday.. Historical: - Allergies: 12:43 No Known Allergies; kb3 - Home Meds: 12:43 gabapentin 300 mg Oral cap 1 cap 3 times per day [Active]; Humalog 100 unit/mL Sub-Q kb3 crtg [Active]; Invokana 100 mg Oral tab 1 tab once daily [Active]; lisinopril 20 mg Oral tab 1 tab once daily [Active]; Tramadol Oral [Active]; aspirin 81 mg Oral chew 1 tab once daily [Active]; atorvastatin 80 mg Oral tab 1 tab once daily [Active]; - PMHx: 12:43 Diabetes - IDDM; Hyperlipidemia; Hypertension; Neuropathy; Chronic pain; CAD; kb3 - PSHx: 12:43 Coronary stent; kb3 - Immunization history:: Adult Immunizations up to date, Client reports receiving the 2nd dose of the Covid vaccine. - Social history:: Smoking status: Patient denies any tobacco usage or history of. ROS: 11:30 Constitutional: Negative for fever, chills, and weight loss, Cardiovascular: Negative jmm for chest pain, palpitations, and edema, Respiratory: Negative for shortness of breath, cough, wheezing, and pleuritic chest pain. 11:30 Back: Positive for pain with movement. 11:30 All other systems are negative. Exam: 11:30 Constitutional: This is a well developed, well nourished patient who is awake, alert, jmm and in no acute distress. Head/Face: atraumatic. Eyes: EOMI, no conjunctival erythema appreciated ENT: Moist Mucus Membranes Neck: Trachea midline, Supple Chest/axilla: Normal chest wall appearance and motion. Cardiovascular: Regular rate and rhythm. No edema appreciated Respiratory: Normal respirations, no respiratory distress appreciated Abdomen/GI: Non distended 11:30 Back: Right lower lumbar pain on palpation. 11:30 Musculoskeletal/extremity: ROM: intact in all extremities. 11:30 Skin: Appearance: Color: normal in color. 11:30 Neuro: Orientation: is normal, Mentation: is normal, Memory: is normal, Extensor hallucis longus intact bilaterally. 11:30 Psych: Behavior/mood is pleasant, cooperative. Vital Signs: 12:41 BP 119 / 68; Pulse 70; Resp 20; Temp 97.7; Pulse Ox 99% ; Weight 136.08 kg; Height 6 kb3 ft. 1 in. (185.42 cm); Pain 9/10; 14:00 BP 116 / 68; Pulse 78; Resp 16; Pulse Ox 100% ; Pain 9/10; jl7 15:02 BP 114 / 79; Pulse 62; Resp 18; Pulse Ox 97% ; Pain 6/10; kb3 12:41 Body Mass Index 39.58 (136.08 kg, 185.42 cm) kb3 MDM: 11:30 Patient medically screened. [facility] 14:44 Data reviewed: vital signs, nurses notes. Counseling: I had a detailed discussion with vani the patient and/or guardian regarding: the historical points, exam findings, and any diagnostic results supporting the discharge/admit diagnosis, the need for outpatient follow up, to return to the emergency department if symptoms worsen or persist or if there are any questions or concerns that arise at home. Administered Medications: 14:08 Drug: Decadron (dexamethasone) 10 mg Route: IM; Site: left deltoid; jl7 15:02 Follow up: Response: No adverse reaction; Pain is decreased kb3 14:08 Drug: morphine 4 mg Route: IM; Site: right deltoid; jl7 15:02 Follow up: Response: No adverse reaction; Pain is decreased kb3 14:08 Drug: Ondansetron 4 mg Route: PO; jl7 15:01 Follow up: Response: No adverse reaction; Pain is decreased kb3 14:08 Drug: Valium (diazepam) 5 mg Route: PO; jl7 15:01 Follow up: Response: No adverse reaction; Pain is decreased kb3 Disposition: 17:07 Co-signature as Attending Physician, Duane Cuevas MD I agree with the assessment and rt plan of care. Disposition Summary: 04/18/22 14:45 Discharge Ordered Location: Home [facility] Condition: Stable jm Diagnosis - Low back pain [facility] Followup: jmm - With: Private Physician - When: 2 - 3 days - Reason: Recheck today's complaints, Continuance of care, Re-evaluation by your physician Discharge Instructions: - Discharge Summary Sheet [facility] - Acute Back Pain, Adult jmm - Muscle Cramps and Spasms [facility] Forms: - Medication Reconciliation Form [facility] - Thank You Letter [facility] - Antibiotic Education [facility] - Prescription Opioid Use [facility] Prescriptions: - Zanaflex 4 mg Oral Tablet - take 1 tablet by ORAL route every 8 hours As needed; 20 tablet; Refills: 0, [facility] Product Selection Permitted - Tramadol 50 mg Oral Tablet - take 1 tablet by ORAL route every 8 hours as needed; 12 tablet; Refills: 0, [facility] Product Selection Permitted Signatures: Dwain Putnam PA PA jmm Leal, Jahala RN RN jl7 Cesia Evans RN RN kb3 Duane Cuevas MD MD rt Corrections: (The following items were deleted from the chart) 12:45 12:43 Home Meds: clopidogrel 75 mg Oral tab 1 tab once daily; kb3 kb3
[2022-04-18 15:09] VITALS: TEMP 97.7
[2022-04-18 15:12] VITALS: BP 114/79; O2SAT 97
== END 2022-04-18 15:03 | disposition home or self-care (01) ==
LOC: ER 11:14
DX: M54.50 Low back pain, unspecified (principal); E11.9 Type 2 diabetes mellitus without complications; I10 Essential (primary) hypertension; Z95.818 Presence of other cardiac implants and grafts; Z79.82 Long term (current) use of aspirin; Z79.4 Long term (current) use of insulin
CPT/HCPCS: 96372; 99283; Q0162; J1100

== ENCOUNTER → 2023-04-25 | Emergency (ER) | payer OTHER ==
[~2023-04-25] MED LIST: HYDROCODONE/APAP 10/325 TAB ONE
--- OUTSIDE RECORDS SUMMARY | 2023-04-25 08:07 | XMS REPORT | Continuity of Care Document ---
Author Name Unknown Address [address] [facility] [address] [place] [address] [facility] Address [address] [facility] [address] [place] [address] Care Team Providers Care Account [employer] Name Role Phone GarciaPetros Clementine Primary Care Physician [phone] Alise Rodarte Attending Clinician [phone] ALISE MONTGOMERY Attending Clinician Unavailable WAGNER NDIAYE Attending Clinician UnavailWagner Mancilla MD Attending Clinician [phone] Doctor Unassigned, [place] Attending Clinician U navailable DAVID ROB Attending Clinician Unavailable Therapy, [facility] Attending Clinician Unavailable David Rob MD Attending Clinician [phone] Payers Payer Name Policy Type Policy Number Effective Date Expirati on Date Source Problems Condition Name Condition Details Condition Category Status Onset Date Resolution Date Last Treatment Date Treating Clinician Comments Source Acute gastric ulcer Acute gastric ulcer Disease Active 11-17 00:00: 00 [facility] Chronic kidney disease, stage II (mild) Chronic kidney disease, stage II (mild) Disease Active 11-17 00:00: 00 [facility] Type 2 diabetes mellitus Type 2 diabetes mellitus Disease Active 11-16 00:00: 00 [facility] Hyperlipid emia Hyperlipid emia Disease Active 11-16 00:00: 00 [facility] Hypertensi on Hypertensi on Disease Active 11-16 00:00: 00 [facility] Upper gastrointe stinal hemorrhage Upper gastrointe stinal hemorrhage Disease Active 11-16 00:00: 00 [facility] Allergies, Adverse Reactions, Alerts Allergy Name Allergy Type Status Severity Reaction(s) Onset Date Inactive Date Treating Clinician Comments Source NO KNOWN ALLERGIE S Drug Class Active [facility] Social History Social Habit Start Date Stop Date Quantity Comments Source Gender identity [facility] intake 2022-12-31 00:00:00 2022-12-31 00:00:00 0 /d [facility] History of Social function 2022-11-11 00:00:00 2022-11-11 00:00:00 [facility] Exposure to SARS-CoV-2 (event) 2022-06-08 00:00:00 2022-06-18 14:05:00 Not sure [facility] Tobacco use and exposure 2021-11-14 00:00:00 2021-11-14 00:00:00 Smokeless tobacco non-user [facility] Sex Assigned At 1950 00:00:00 1950 00:00:00 [facility] Smoking Status Start Date Stop Date Source Never smoked tobacco [facility] Medications Ordered Medication Name Filled Medication Name Start Date Stop Date Current Medication? Ordering Clinician Indication Dosage Frequency Signature (SIG) Comments Components Source sodium hyaluronate (viscosup) (ORTHOVISC) injection 30 mg 12-31 18:00: 00 12-31 17:58 :00 No [id number] 9100 30mg [facility] sodium hyaluronate (viscosup) (ORTHOVISC) injection 30 mg 12-31 18:00: 00 12-31 17:58 :00 No [id number] 9100 30mg 30 mg, Intra-ashley cular, ONCE, 1 dose, On Thu12/31/22 at 1300, Routine [facility] sodium hyaluronate (viscosup) (ORTHOVISC) injection 30 mg 12-31 18:00: 00 12-31 17:58 :00 No [id number] 9100 30mg [facility] sodium hyaluronate (viscosup) (ORTHOVISC) injection 30 mg 2022-0 12-31 18:00: 00 12-31 17:58 :00 No [id number] 9100 30mg 30 mg, Intra-ashley cular, ONCE, 1 dose, On Thu12/31/22 at 1300, Routine [facility] sodium hyaluronate (viscosup) (ORTHOVISC) injection 30 mg 3-0 12-24 18:00: 00 12-25 13:48 :00 No [id number] 9100 30mg [facility] sodium hyaluronate (viscosup) (ORTHOVISC) injection 30 mg 3-0 12-24 18:00: 00 12-25 13:48 :00 No [id number] 9100 30mg 30 mg, Intra-ashley cular, ONCE, 1 dose, On Thu12/24/22 at 1300, Routine [facility] sodium hyaluronate (viscosup) (ORTHOVISC) injection 30 mg 2022-0 12-24 18:00: 00 12-25 13:48 :00 No [id number] 9100 30mg [facility] sodium hyaluronate (viscosup) (ORTHOVISC) injection 30 mg 3-0 12-24 18:00: 00 12-25 13:48 :00 No [id number] 9100 30mg 30 mg, Intra-ashley cular, ONCE, 1 dose, On Thu12/24/22 at 1300, Routine [facility] sodium hyaluronate (viscosup) (ORTHOVISC) injection 30 mg 3-0 12-17 19:00: 00 12-17 18:03 :00 No [id number] 9100 30mg [facility] sodium hyaluronate (viscosup) (ORTHOVISC) injection 30 mg 3-0 12-17 19:00: 00 12-17 18:03 :00 No [id number] 9100 30mg 30 mg, Intra-ashley cular, ONCE, 1 dose, On Thu12/17/22 at 1400, Routine [facility] sodium hyaluronate (viscosup) (ORTHOVISC) injection 30 mg 2022-0 12-17 19:00: 00 12-17 18:03 :00 No [id number] 9100 30mg [facility] sodium hyaluronate (viscosup) (ORTHOVISC) injection 30 mg 2022-0 12-17 19:00: 00 12-17 18:03 :00 No [id number] 9100 30mg 30 mg, Intra-ashley cular, ONCE, 1 dose, On Thu12/17/22 at 1400, Routine [facility] Diclofenac Sodium 1 % gel 3-0 -03 00:00: 00 Yes [id number] 9100 APPLY 2-4 GRAMS TO THE AFFECTED AREA FOUR TIMES DAILY [facility] Diclofenac Sodium 1 % gel 2023-0 4-03 00:00: 00 Yes [id number] 9100 APPLY 2-4 GRAMS TO THE AFFECTED AREA FOUR TIMES DAILY [facility] Diclofenac Sodium 1 % gel 3-0 4-03 00:00: 00 Yes [id number] 9100 APPLY 2-4 GRAMS TO THE AFFECTED AREA FOUR TIMES DAILY [facility] Diclofenac Sodium 1 % gel 3-0 4-03 00:00: 00 Yes [id number] 9100 APPLY 2-4 GRAMS TO THE AFFECTED AREA FOUR TIMES DAILY [facility] Diclofenac Sodium 1 % gel 3-0 4-03 00:00: 00 Yes [id number] 9100 APPLY 2-4 GRAMS TO THE AFFECTED AREA FOUR TIMES DAILY [facility] Diclofenac Sodium 1 % gel 3-0 4-03 00:00: 00 Yes [id number] 9100 APPLY 2-4 GRAMS TO THE AFFECTED AREA FOUR TIMES DAILY [facility] Diclofenac Sodium 1 % gel 3-0 4-03 00:00: 00 Yes [id number] 9100 APPLY 2-4 GRAMS TO THE AFFECTED AREA FOUR TIMES DAILY [facility] Diclofenac Sodium 1 % gel 2023-0 4-03 00:00: 00 Yes [id number] 9100 APPLY 2-4 GRAMS TO THE AFFECTED AREA FOUR TIMES DAILY [facility] Diclofenac Sodium 1 % gel 2023-0 4-03 00:00: 00 Yes [id number] 9100 APPLY 2-4 GRAMS TO THE AFFECTED AREA FOUR TIMES DAILY [facility] Diclofenac Sodium 1 % gel 2022-0 4-03 00:00: 00 Yes [id number] 9100 APPLY 2-4 GRAMS TO THE AFFECTED AREA FOUR TIMES DAILY [facility] Diclofenac Sodium 1 % gel 2022-0 4-03 00:00: 00 Yes [id number] 9100 APPLY 2-4 GRAMS TO THE AFFECTED AREA FOUR TIMES DAILY [facility] sodium hyaluronate (viscosup) (ORTHOVISC) injection 30 mg 0 2-15 20:30: 00 06-18 20:17 :00 No [id number] 9100 30mg [facility] sodium hyaluronate (viscosup) (ORTHOVISC) injection 30 mg 0 2-15 20:30: 00 06-18 20:17 :00 No [id number] 9100 30mg 30 mg, Intra-ashley cular, ONCE, 1 dose, On Thu06/18/22 at 1430, Routine [facility] sodium hyaluronate (viscosup) (ORTHOVISC) injection 30 mg 0 2-15 20:30: 00 06-18 20:17 :00 No [id number] 9100 30mg [facility] sodium hyaluronate (viscosup) (ORTHOVISC) injection 30 mg 2022-0 2-15 20:30: 00 06-18 20:17 :00 No [id number] 9100 30mg 30 mg, Intra-ashley cular, ONCE, 1 dose, On Thu06/18/22 at 1430, Routine [facility] Diclofenac Sodium 1 % gel 2022-0 2-09 00:00: 00 Yes [id number] 9100 APPLY 2-4 GRAMS TO AFFECTED AREA(S) FOUR TIMES A DAY [facility] Diclofenac Sodium 1 % gel 2022-0 2-09 00:00: 00 Yes [id number] 9100 APPLY 2-4 GRAMS TO AFFECTED AREA(S) FOUR TIMES A DAY [facility] Diclofenac Sodium 1 % gel 2022-0 2-09 00:00: 00 Yes [id number] 9100 APPLY 2-4 GRAMS TO AFFECTED AREA(S) FOUR TIMES A DAY [facility] [place] Diclofenac Sodium 1 % gel 2022-0 2- 00:00: 00 08-04 00:00 :00 No [id number] 9100 APPLY 2-4 GRAMS TO AFFECTED AREA(S) FOUR TIMES A DAY [facility] [place] Diclofenac Sodium 1 % gel 2022-0 2-08 00:00: 00 Yes [id number] 9100 APPLY 2-4 GRAMS TO AFFECTED AREA(S) FOUR TIMES A DAY [facility] Diclofenac Sodium 1 % gel 2022-0 2-08 00:00: 00 Yes [id number] 9100 APPLY 2-4 GRAMS TO AFFECTED AREA(S) FOUR TIMES A DAY [facility] [place] Diclofenac Sodium 1 % gel 2022-0 2-08 00:00: 00 Yes [id number] 9100 APPLY 2-4 GRAMS TO AFFECTED AREA(S) FOUR TIMES A DAY [facility] Diclofenac Sodium 1 % gel 2022-0 2-08 00:00: 00 Yes [id number] 9100 APPLY 2-4 GRAMS TO AFFECTED AREA(S) FOUR TIMES A DAY [facility] Diclofenac Sodium 1 % gel 2022-0 2-08 00:00: 00 Yes [id number] 9100 APPLY 2-4 GRAMS TO AFFECTED AREA(S) FOUR TIMES A DAY [facility] Diclofenac Sodium 1 % gel 2022-0 2-08 00:00: 00 Yes [id number] 9100 APPLY 2-4 GRAMS TO AFFECTED AREA(S) FOUR TIMES A DAY [facility] Diclofenac Sodium 1 % gel 3-0 2-08 00:00: 00 Yes [id number] 9100 APPLY 2-4 GRAMS TO AFFECTED AREA(S) FOUR TIMES A DAY [facility] Diclofenac Sodium 1 % gel 3-0 2-08 00:00: 00 Yes [id number] 9100 APPLY 2-4 GRAMS TO AFFECTED AREA(S) FOUR TIMES A DAY [facility] Diclofenac Sodium 1 % gel 2023-0 2-08 00:00: 00 Yes [id number] 9100 APPLY 2-4 GRAMS TO AFFECTED AREA(S) FOUR TIMES A DAY [facility] Diclofenac Sodium 1 % gel 3-0 2-08 00:00: 00 Yes [id number] 9100 APPLY 2-4 GRAMS TO AFFECTED AREA(S) FOUR TIMES A DAY [facility] Diclofenac Sodium 1 % gel 2022-0 2-08 00:00: 00 Yes [id number] 9100 APPLY 2-4 GRAMS TO AFFECTED AREA(S) FOUR TIMES A DAY [facility] Diclofenac Sodium 1 % gel 2022-0 2-08 00:00: 00 Yes [id number] 9100 APPLY 2-4 GRAMS TO AFFECTED AREA(S) FOUR TIMES A DAY [facility] Diclofenac Sodium 1 % gel 3-0 2-08 00:00: 00 Yes [id number] 9100 APPLY 2-4 GRAMS TO AFFECTED AREA(S) FOUR TIMES A DAY [facility] Diclofenac Sodium 1 % gel 2022-0 2-08 00:00: 00 Yes [id number] 9100 APPLY 2-4 GRAMS TO AFFECTED AREA(S) FOUR TIMES A DAY [facility] Diclofenac Sodium 1 % gel 2022-0 2-08 00:00: 00 Yes [id number] 9100 APPLY 2-4 GRAMS TO AFFECTED AREA(S) FOUR TIMES A DAY [facility] sodium hyaluronate (viscosup) (ORTHOVISC) injection 30 mg 0 2-06 20:30: 00 06-09 20:15 :00 No [id number] 9100 30mg [facility] sodium hyaluronate (viscosup) (ORTHOVISC) injection 30 mg 2022-0 2-06 20:30: 00 06-09 20:15 :00 No [id number] 9100 30mg 30 mg, Intra-ashley cular, ONCE, 1 dose, On Thu06/09/22 at 1430, Routine [facility] sodium hyaluronate (viscosup) (ORTHOVISC) injection 30 mg 2022-0 2-06 20:30: 00 06-09 20:15 :00 No [id number] 9100 30mg [facility] sodium hyaluronate (viscosup) (ORTHOVISC) injection 30 mg 3-0 2-06 20:30: 00 06-09 20:15 :00 No [id number] 9100 30mg 30 mg, Intra-ashley cular, ONCE, 1 dose, On Thu06/09/22 at 1430, Routine [facility] sodium hyaluronate (viscosup) (ORTHOVISC) injection 30 mg 06-02 21:15: 00 06-02 20:17 :00 No [id number] 9100 30mg [facility] sodium hyaluronate (viscosup) (ORTHOVISC) injection 30 mg 06-02 21:15: 00 06-02 20:17 :00 No [id number] 9100 30mg 30 mg, Intra-ashley cular, ONCE, 1 dose, On Thu06/02/22 at 1515, Routine [facility] sodium hyaluronate (viscosup) (ORTHOVISC) injection 30 mg 06-02 21:15: 00 06-02 20:17 :00 No [id number] 9100 30mg [facility] sodium hyaluronate (viscosup) (ORTHOVISC) injection 30 mg 06-02 21:15: 06-02 20:17 :00 No [id number] 9100 30mg 30 mg, Intra-ashley cular, ONCE, 1 dose, On Thu06/02/22 at 1515, Routine [facility] DICLOFENAC SODIUM 1 % gel 2021-05 00:00: 00 Yes [id number] 9100 APPLY 2-4 GRAMS TO AFFECTED AREAS FOUR TIMES A DAY [facility] DICLOFENAC SODIUM 1 % gel 2021-05 00:00: 00 Yes [id number] 9100 APPLY 2-4 GRAMS TO AFFECTED AREAS FOUR TIMES A DAY [facility] DICLOFENAC SODIUM 1 % gel 2021-05 00:00: 00 Yes [id number] 9100 APPLY 2-4 GRAMS TO AFFECTED AREAS FOUR TIMES A DAY [facility] DICLOFENAC SODIUM 1 % gel 2021-05 00:00: 00 Yes [id number] 9100 APPLY 2-4 GRAMS TO AFFECTED AREAS FOUR TIMES A DAY [facility] DICLOFENAC SODIUM 1 % gel 2021-05 00:00: 00 Yes [id number] 9100 APPLY 2-4 GRAMS TO AFFECTED AREAS FOUR TIMES A DAY [facility] DICLOFENAC SODIUM 1 % gel 2021-05 00:00: 00 Yes [id number] 9100 APPLY 2-4 GRAMS TO AFFECTED AREAS FOUR TIMES A DAY [facility] DICLOFENAC SODIUM 1 % gel 2021-05 00:00: 00 Yes [id number] 9100 APPLY 2-4 GRAMS TO AFFECTED AREAS FOUR TIMES A DAY [facility] DICLOFENAC SODIUM 1 % gel 2021-05 00:00: 00 06-11 00:00 :00 No [id number] 9100 APPLY 2-4 GRAMS TO AFFECTED AREAS FOUR TIMES A DAY [facility] DICLOFENAC SODIUM 1 % gel 2021-05 00:00: 00 06-11 00:00 :00 No [id number] 9100 APPLY 2-4 GRAMS TO AFFECTED AREAS FOUR TIMES A DAY [facility] DICLOFENAC SODIUM 1 % gel 2021-05 00:00: 00 06-11 00:00 :00 No [id number] 9100 APPLY 2-4 GRAMS TO AFFECTED AREAS FOUR TIMES A DAY [facility] DICLOFENAC SODIUM 1 % gel 2021-05 00:00: 00 Yes [id number] 9100 APPLY 2-4 GRAMS TO AFFECTED AREAS FOUR TIMES A DAY [facility] DICLOFENAC SODIUM 1 % gel 2021-05 00:00: 00 04-29 00:00 :00 No [id number] 9100 APPLY 2-4 GRAMS TO AFFECTED AREAS FOUR TIMES A DAY [facility] DICLOFENAC SODIUM 1 % gel 01-22 00:00: 00 Yes [id number] 9100 APPLY 2-4 GRAMS TO AFFECTED AREAS FOUR TIMES A DAY [facility] DICLOFENAC SODIUM 1 % gel 01-22 00:00: 00 03-07 00:00 :00 No [id number] 9100 APPLY 2-4 GRAMS TO AFFECTED AREAS FOUR TIMES A DAY [facility] DICLOFENAC SODIUM 1 % gel 12-04 00:00: 00 Yes [id number] 9100 APPLY 2-4 GRAMS TO AFFECTED AREAS FOUR TIMES A DAY [facility] DICLOFENAC SODIUM 1 % gel 2021-0 8-03 00:00: 00 01-22 00:00 :00 No [id number] 9100 APPLY 2-4 GRAMS TO AFFECTED AREAS FOUR TIMES A DAY [facility] sodium hyaluronate (viscosup) (ORTHOVISC) injection 30 mg 11-28 15:30: 00 11-28 14:24 :00 No [id number] 9100 30mg [facility] sodium hyaluronate (viscosup) (ORTHOVISC) injection 30 mg 11-28 15:30: 00 11-28 14:24 :00 No [id number] 9100 30mg 30 mg, Intra-ashley cular, ONCE, 1 dose, On Rani 11/28/21 at 1030, Routine [facility] DICLOFENAC SODIUM 1 % gel 2021-0 6-02 00:00: 00 Yes [id number] 9100 APPLY 2-4 GRAMS TO AFFECTED AREAS FOUR TIMES A DAY [facility] DICLOFENAC SODIUM 1 % gel 2021-0 6-02 00:00: 00 12-04 00:00 :00 No [id number] 9100 APPLY 2-4 GRAMS TO AFFECTED AREAS FOUR TIMES A DAY [facility] DICLOFENAC SODIUM 1 % gel 2021-0 3-08 00:00: 00 Yes [id number] 9100 APPLY 2-4 GRAMS TO AFFECTED AREA(S) FOUR TIMES DAILY [facility] DICLOFENAC SODIUM 1 % gel 2021-0 3-08 00:00: 00 Yes [id number] 9100 APPLY 2-4 GRAMS TO AFFECTED AREA(S) FOUR TIMES DAILY [facility] DICLOFENAC SODIUM 1 % gel 2-0 3-08 00:00: 00 Yes [id number] 9100 APPLY 2-4 GRAMS TO AFFECTED AREA(S) FOUR TIMES DAILY [facility] DICLOFENAC SODIUM 1 % gel 2022-0 3-08 00:00: 00 Yes [id number] 9100 APPLY 2-4 GRAMS TO AFFECTED AREA(S) FOUR TIMES DAILY [facility] DICLOFENAC SODIUM 1 % gel 2022-0 3-08 00:00: 00 Yes [id number] 9100 APPLY 2-4 GRAMS TO AFFECTED AREA(S) FOUR TIMES DAILY [facility] DICLOFENAC SODIUM 1 % gel 2022-0 3-08 00:00: 00 Yes [id number] 9100 APPLY 2-4 GRAMS TO AFFECTED AREA(S) FOUR TIMES DAILY [facility] DICLOFENAC SODIUM 1 % gel 2022-0 3-08 00:00: 00 Yes [id number] 9100 APPLY 2-4 GRAMS TO AFFECTED AREA(S) FOUR TIMES DAILY [facility] DICLOFENAC SODIUM 1 % gel 2022-0 3-08 00:00: 00 Yes [id number] 9100 APPLY 2-4 GRAMS TO AFFECTED AREA(S) FOUR TIMES DAILY [facility] DICLOFENAC SODIUM 1 % gel 2022-0 3-08 00:00: 00 Yes [id number] 9100 APPLY 2-4 GRAMS TO AFFECTED AREA(S) FOUR TIMES DAILY [facility] DICLOFENAC SODIUM 1 % gel 2022-0 3-08 00:00: 00 Yes [id number] 9100 APPLY 2-4 GRAMS TO AFFECTED AREA(S) FOUR TIMES DAILY [facility] DICLOFENAC SODIUM 1 % gel 2022-0 3-08 00:00: 00 Yes [id number] 9100 APPLY 2-4 GRAMS TO AFFECTED AREA(S) FOUR TIMES DAILY [facility] DICLOFENAC SODIUM 1 % gel 2022-0 3-08 00:00: 00 Yes [id number] 9100 APPLY 2-4 GRAMS TO AFFECTED AREA(S) FOUR TIMES DAILY [facility] DICLOFENAC SODIUM 1 % gel 2022-0 3-08 00:00: 00 Yes [id number] 9100 APPLY 2-4 GRAMS TO AFFECTED AREA(S) FOUR TIMES DAILY [facility] DICLOFENAC SODIUM 1 % gel 2022-0 3-08 00:00: 00 Yes [id number] 9100 APPLY 2-4 GRAMS TO AFFECTED AREA(S) FOUR TIMES DAILY [facility] DICLOFENAC SODIUM 1 % gel 2022-0 3-08 00:00: 00 Yes [id number] 9100 APPLY 2-4 GRAMS TO AFFECTED AREA(S) FOUR TIMES DAILY [facility] DICLOFENAC SODIUM 1 % gel 2022-0 3-08 00:00: 00 Yes [id number] 9100 APPLY 2-4 GRAMS TO AFFECTED AREA(S) FOUR TIMES DAILY [facility] DICLOFENAC SODIUM 1 % gel 2-0 3-08 00:00: 00 Yes [id number] 9100 APPLY 2-4 GRAMS TO AFFECTED AREA(S) FOUR TIMES DAILY [facility] DICLOFENAC SODIUM 1 % gel 2022-0 3-08 00:00: 00 Yes [id number] 9100 APPLY 2-4 GRAMS TO AFFECTED AREA(S) FOUR TIMES DAILY [facility] DICLOFENAC SODIUM 1 % gel 2022-0 3-08 00:00: 00 Yes [id number] 9100 APPLY 2-4 GRAMS TO AFFECTED AREA(S) FOUR TIMES DAILY [facility] DICLOFENAC SODIUM 1 % gel 2022-0 3-08 00:00: 00 Yes [id number] 9100 APPLY 2-4 GRAMS TO AFFECTED AREA(S) FOUR TIMES DAILY [facility] DICLOFENAC SODIUM 1 % gel 2022-0 3-08 00:00: 00 Yes [id number] 9100 APPLY 2-4 GRAMS TO AFFECTED AREA(S) FOUR TIMES DAILY [facility] DICLOFENAC SODIUM 1 % gel 2022-0 3-08 00:00: 00 Yes [id number] 9100 APPLY 2-4 GRAMS TO AFFECTED AREA(S) FOUR TIMES DAILY [facility] DICLOFENAC SODIUM 1 % gel 2022-0 3-08 00:00: 00 Yes [id number] 9100 APPLY 2-4 GRAMS TO AFFECTED AREA(S) FOUR TIMES DAILY [facility] DICLOFENAC SODIUM 1 % gel 2022-0 3-08 00:00: 00 Yes [id number] 9100 APPLY 2-4 GRAMS TO AFFECTED AREA(S) FOUR TIMES DAILY [facility] DICLOFENAC SODIUM 1 % gel 2022-0 3-08 00:00: 00 Yes [id number] 9100 APPLY 2-4 GRAMS TO AFFECTED AREA(S) FOUR TIMES DAILY [facility] DICLOFENAC SODIUM 1 % gel 2022-0 3-08 00:00: 00 Yes [id number] 9100 APPLY 2-4 GRAMS TO AFFECTED AREA(S) FOUR TIMES DAILY [facility] DICLOFENAC SODIUM 1 % gel 2022-0 3-08 00:00: 00 Yes [id number] 9100 APPLY 2-4 GRAMS TO AFFECTED AREA(S) FOUR TIMES DAILY [facility] DICLOFENAC SODIUM 1 % gel 0 -08 00:00: 00 Yes [id number] 9100 APPLY 2-4 GRAMS TO AFFECTED AREA(S) FOUR TIMES DAILY [facility] DICLOFENAC SODIUM 1 % gel 0 3-08 00:00: 00 Yes [id number] 9100 APPLY 2-4 GRAMS TO AFFECTED AREA(S) FOUR TIMES DAILY [facility] DICLOFENAC SODIUM 1 % gel 0 -08 00:00: 00 Yes [id number] 9100 APPLY 2-4 GRAMS TO AFFECTED AREA(S) FOUR TIMES DAILY [facility] gabapentin 300 mg capsule 2020-05 08:56: 42 Yes 300mg Take 300 mg by mouth. [facility] lisinopril 20 mg tablet 2020-05 08:56: 42 Yes 20mg Take 20 mg by mouth. [facility] sennosides- docusate sodium 8.6-50 mg per tablet 2020-05 08:56: 42 Yes 2{tbl} Take 2 tablets by mouth. [facility] traMADOL 50 mg tablet 2020-05 08:56: 42 Yes 50mg Take 50 mg by mouth. [facility] insulin detemir U-100 100 unit/mL injection 2020-05 08:56: 42 Yes 40U inject 40 Units under the skin. [facility] psyllium (METAMUCIL FIBER SINGLES) 3.4 gram packet 2020-05 08:56: 42 Yes 1{packe t} Take 1 Packet by mouth. [facility] gabapentin 300 mg capsule 2020-05 08:56: 42 Yes 300mg Take 300 mg by mouth. [facility] lisinopril 20 mg tablet 2020-05 08:56: 42 Yes 20mg Take 20 mg by mouth. [facility] sennosides- docusate sodium 8.6-50 mg per tablet 2020-05 08:56: 42 Yes 2{tbl} Take 2 tablets by mouth. [facility] mg tablet 2020-05 08:56: 42 Yes 50mg Take 50 mg by mouth. [facility] detemir U-100 100 unit/mL injection 2020-05 08:56: 42 Yes 40U inject 40 Units under the skin. [facility] psyllium (METAMUCIL FIBER SINGLES) 3.4 gram packet 2020-05 08:56: 42 Yes 1{packe t} Take 1 Packet by mouth. [facility] gabapentin 300 mg capsule 2020-05 08:56: 42 Yes 300mg Take 300 mg by mouth. [facility] lisinopril 20 mg tablet 2020-05 08:56: 42 Yes 20mg Take 20 mg by mouth. [facility] sennosides- docusate sodium 8.6-50 mg per tablet 2020-05 08:56: 42 Yes 2{tbl} Take 2 tablets by mouth. [facility] traMADOL 50 mg tablet 2020-05 08:56: 42 Yes 50mg Take 50 mg by mouth. [facility] insulin detemir U-100 100 unit/mL injection 2020-05 08:56: 42 Yes 40U inject 40 Units under the skin. [facility] psyllium (METAMUCIL FIBER SINGLES) 3.4 gram packet 2020-05 08:56: 42 Yes 1{packe t} Take 1 Packet by mouth. [facility] gabapentin 300 mg capsule 2020-05 08:56: 42 Yes 300mg Take 300 mg by mouth. [facility] lisinopril 20 mg tablet 2020-05 08:56: 42 Yes 20mg Take 20 mg by mouth. [facility] sennosides- docusate sodium 8.6-50 mg per tablet 2020-05 08:56: 42 Yes 2{tbl} Take 2 tablets by mouth. [facility] tra[facility] mg tablet 2020-05 08:56: 42 Yes 50mg Take 50 mg by mouth. [facility] insulin detemir U-100 100 unit/mL injection 2020-05 08:56: 42 Yes 40U inject 40 Units under the skin. [facility] psyllium (METAMUCIL FIBER SINGLES) 3.4 gram packet 2020-05 08:56: 42 Yes 1{packe t} Take 1 Packet by mouth. [facility] gabapentin 300 mg capsule 2020-05 08:56: 42 Yes 300mg Take 300 mg by mouth. [facility] lisinopril 20 mg tablet 2020-05 08:56: 42 Yes 20mg Take 20 mg by mouth. [facility] sennosides- docusate sodium 8.6-50 mg per tablet 2020-05 08:56: 42 Yes 2{tbl} Take 2 tablets by mouth. [facility] traMADOL 50 mg tablet 2020-05 08:56: 42 Yes 50mg Take 50 mg by mouth. [facility] insulin detemir U-100 100 unit/mL injection 2020-05 08:56: 42 Yes 40U inject 40 Units under the skin. [facility] psyllium (METAMUCIL FIBER SINGLES) 3.4 gram packet 2020-05 08:56: 42 Yes 1{packe t} Take 1 Packet by mouth. [facility] gabapentin 300 mg capsule 2020-05 08:56: 42 Yes 300mg Take 300 mg by mouth. [facility] lisinopril 20 mg tablet 2020-05 08:56: 42 Yes 20mg Take 20 mg by mouth. [facility] sennosides- docusate sodium 8.6-50 mg per tablet 2020-05 08:56: 42 Yes 2{tbl} Take 2 tablets by mouth. [facility] traMADOL 50 mg tablet 2020-05 08:56: 42 Yes 50mg Take 50 mg by mouth. [facility] insulin detemir U-100 100 unit/mL injection 2020-05 08:56: 42 Yes 40U inject 40 Units under the skin. [facility] (METAMUCIL FIBER SINGLES) 3.4 gram packet 2020-05 08:56: 42 Yes 1{packe t} Take 1 Packet by mouth. [facility] gabapentin 300 mg capsule 2020-05 08:56: 42 Yes 300mg Take 300 mg by mouth. [facility] mg tablet 2020-05 08:56: 42 Yes 20mg Take 20 mg by mouth. [facility] sennosides- docusate sodium 8.6-50 mg per tablet 2020-05 08:56: 42 Yes 2{tbl} Take 2 tablets by mouth. [facility] traMADOL 50 mg tablet 2020-05 08:56: 42 Yes 50mg Take 50 mg by mouth. [facility] insulin detemir U-100 100 unit/mL injection 2020-05 08:56: 42 Yes 40U inject 40 Units under the skin. [facility] psyllium (METAMUCIL FIBER SINGLES) 3.4 gram packet 2020-05 08:56: 42 Yes 1{packe t} Take 1 Packet by mouth. [facility] gabapentin 300 mg capsule 2020-05 08:56: 42 Yes 300mg Take 300 mg by mouth. [facility] lisinopril 20 mg tablet 2020-05 08:56: 42 Yes 20mg Take 20 mg by mouth. [facility] sennosides- docusate sodium 8.6-50 mg per tablet 2020-05 08:56: 42 Yes 2{tbl} Take 2 tablets by mouth. [facility] traMAD[facility] mg tablet 2020-05 08:56: 42 Yes 50mg Take 50 mg by mouth. [facility] insulin detemir U-100 100 unit/mL injection 2020-05 08:56: 42 Yes 40U inject 40 Units under the skin. [facility] psyllium (METAMUCIL FIBER SINGLES) 3.4 gram packet 2020-05 08:56: 42 Yes 1{packe t} Take 1 Packet by mouth. [facility] gabapentin 300 mg capsule 2020-05 08:56: 42 Yes 300mg Take 300 mg by mouth. [facility] lisinopril 20 mg tablet 2020-05 08:56: 42 Yes 20mg Take 20 mg by mouth. [facility] sennosides- docusate sodium 8.6-50 mg per tablet 2020-05 08:56: 42 Yes 2{tbl} Take 2 tablets by mouth. [facility] traMADOL 50 mg tablet 2020-05 08:56: 42 Yes 50mg Take 50 mg by mouth. [facility] insulin detemir U-100 100 unit/mL injection 2020-05 08:56: 42 Yes 40U inject 40 Units under the skin. [facility] psyllium (METAMUCIL FIBER SINGLES) 3.4 gram packet 2020-05 08:56: 42 Yes 1{packe t} Take 1 Packet by mouth. [facility] gabapentin 300 mg capsule 2020-05 08:56: 42 Yes 300mg Take 300 mg by mouth. [facility] lisinopril 20 mg tablet 2020-05 08:56: 42 Yes 20mg Take 20 mg by mouth. [facility] sennosides- docusate sodium 8.6-50 mg per tablet 2020-05 08:56: 42 Yes 2{tbl} Take 2 tablets by mouth. [facility] traMADOL 50 mg tablet 2020-05 08:56: 42 Yes 50mg Take 50 mg by mouth. [facility] insulin detemir U-100 100 unit/mL injection 2020-05 08:56: 42 Yes 40U inject 40 Units under the skin. [facility] psyllium (METAMUCIL FIBER SINGLES) 3.4 gram packet 2020-05 08:56: 42 Yes 1{packe t} Take 1 Packet by mouth. [facility] gabapentin 300 mg capsule 2020-05 08:56: 42 Yes 300mg Take 300 mg by mouth. [facility] lisinopril 20 mg tablet 2020-05 08:56: 42 Yes 20mg Take 20 mg by mouth. [facility] sennosides- docusate sodium 8.6-50 mg per tablet 2020-05 08:56: 42 Yes 2{tbl} Take 2 tablets by mouth. [facility] tra[facility]AD[facility] mg tablet 2020-05 08:56: 42 Yes 50mg Take 50 mg by mouth. [facility] insulin detemir U-100 100 unit/mL injection 2020-05 08:56: 42 Yes 40U inject 40 Units under the skin. [facility] psyllium (METAMUCIL FIBER SINGLES) 3.4 gram packet 2020-05 08:56: 42 Yes 1{packe t} Take 1 Packet by mouth. [facility] gabapentin 300 mg capsule 2020-05 08:56: 42 Yes 300mg Take 300 mg by mouth. [facility] lisinopril 20 mg tablet 2020-05 08:56: 42 Yes 20mg Take 20 mg by mouth. [facility] sennosides- docusate sodium 8.6-50 mg per tablet 2020-05 08:56: 42 Yes 2{tbl} Take 2 tablets by mouth. [facility] traMADOL 50 mg tablet 2020-05 08:56: 42 Yes 50mg Take 50 mg by mouth. [facility] insulin detemir U-100 100 unit/mL injection 2020-05 08:56: 42 Yes 40U inject 40 Units under the skin. [facility] psyllium (METAMUCIL FIBER SINGLES) 3.4 gram packet 2020-05 08:56: 42 Yes 1{packe t} Take 1 Packet by mouth. [facility] gabapentin 300 mg capsule 2020-05 08:56: 42 Yes 300mg Take 300 mg by mouth. [facility] lisinopril 20 mg tablet 2020-05 08:56: 42 Yes 20mg Take 20 mg by mouth. [facility] sennosides- docusate sodium 8.6-50 mg per tablet 2020-05 08:56: 42 Yes 2{tbl} Take 2 tablets by mouth. [facility] traMADOL 50 mg tablet 2020-05 08:56: 42 Yes 50mg Take 50 mg by mouth. [facility] insulin detemir U-100 100 unit/mL injection 2020-05 08:56: 42 Yes 40U inject 40 Units under the skin. [facility] psyllium (METAMUCIL FIBER SINGLES) 3.4 gram packet 2020-05 08:56: 42 Yes 1{packe t} Take 1 Packet by mouth. [facility] gabapentin 300 mg capsule 2020-05 08:56: 42 Yes 300mg Take 300 mg by mouth. [facility] lisinopril 20 mg tablet 2020-05 08:56: 42 Yes 20mg Take 20 mg by mouth. [facility] sennosides- docusate sodium 8.6-50 mg per tablet 2020-05 08:56: 42 Yes 2{tbl} Take 2 tablets by mouth. [facility] traMADOL 50 mg tablet 2020-05 08:56: 42 Yes 50mg Take 50 mg by mouth. [facility] insulin detemir U-100 100 unit/mL injection 2020-05 08:56: 42 Yes 40U inject 40 Units under the skin. [facility] psyllium (METAMUCIL FIBER SINGLES) 3.4 gram packet 2020-05 08:56: 42 Yes 1{packe t} Take 1 Packet by mouth. [facility] gabapentin 300 mg capsule 2020-05 08:56: 42 Yes 300mg Take 300 mg by mouth. [facility] lisinopril 20 mg tablet 2020-05 08:56: 42 Yes 20mg Take 20 mg by mouth. [facility] sennosides- docusate sodium 8.6-50 mg per tablet 2020-05 08:56: 42 Yes 2{tbl} Take 2 tablets by mouth. [facility] traMADOL 50 mg tablet 2020-05 08:56: 42 Yes 50mg Take 50 mg by mouth. [facility] insulin detemir U-100 100 unit/mL injection 2020-05 08:56: 42 Yes 40U inject 40 Units under the skin. [facility] psyllium (METAMUCIL FIBER SINGLES) 3.4 gram packet 2020-05 08:56: 42 Yes 1{packe t} Take 1 Packet by mouth. [facility] gabapentin 300 mg capsule 2020-05 08:56: 42 Yes 300mg Take 300 mg by mouth. [facility] lisinopril 20 mg tablet 2020-05 08:56: 42 Yes 20mg Take 20 mg by mouth. [facility] sennosides- docusate sodium 8.6-50 mg per tablet 2020-05 08:56: 42 Yes 2{tbl} Take 2 tablets by mouth. [facility] traMADOL 50 mg tablet 2020-05 08:56: 42 Yes 50mg Take 50 mg by mouth. [facility] insulin detemir U-100 100 unit/mL injection 2020-05 08:56: 42 Yes 40U inject 40 Units under the skin. [facility] psyllium (METAMUCIL FIBER SINGLES) 3.4 gram packet 2020-05 08:56: 42 Yes 1{packe t} Take 1 Packet by mouth. [facility] gabapentin 300 mg capsule 2020-05 08:56: 42 Yes 300mg Take 300 mg by mouth. [facility] lisinopril 20 mg tablet 2020-05 08:56: 42 Yes 20mg Take 20 mg by mouth. [facility] sennosides- docusate sodium 8.6-50 mg per tablet 2020-05 08:56: 42 Yes 2{tbl} Take 2 tablets by mouth. [facility] traMADOL 50 mg tablet 2020-05 08:56: 42 Yes 50mg Take 50 mg by mouth. [facility] insulin detemir U-100 100 unit/mL injection 2020-05 08:56: 42 Yes 40U inject 40 Units under the skin. [facility] psyllium (METAMUCIL FIBER SINGLES) 3.4 gram packet 2020-05 08:56: 42 Yes 1{packe t} Take 1 Packet by mouth. [facility] gabapentin 300 mg capsule 2020-05 08:56: 42 Yes 300mg Take 300 mg by mouth. [facility] lisinopril 20 mg tablet 2020-05 08:56: 42 Yes 20mg Take 20 mg by mouth. [facility] sennosides- docusate sodium 8.6-50 mg per tablet 2020-05 08:56: 42 Yes 2{tbl} Take 2 tablets by mouth. [facility] traMADOL 50 mg tablet 2020-05 08:56: 42 Yes 50mg Take 50 mg by mouth. [facility] insulin detemir U-100 100 unit/mL injection 2020-05 08:56: 42 Yes 40U inject 40 Units under the skin. [facility] psyllium (METAMUCIL FIBER SINGLES) 3.4 gram packet 2020-05 08:56: 42 Yes 1{packe t} Take 1 Packet by mouth. [facility] gabapentin 300 mg capsule 2020-05 08:56: 42 Yes 300mg Take 300 mg by mouth. [facility] lisinopril 20 mg tablet 2020-05 08:56: 42 Yes 20mg Take 20 mg by mouth. [facility] sennosides- docusate sodium 8.6-50 mg per tablet 2020-05 08:56: 42 Yes 2{tbl} Take 2 tablets by mouth. [facility] tra[facility]AD[facility] mg tablet 2020-05 08:56: 42 Yes 50mg Take 50 mg by mouth. [facility] insulin detemir U-100 100 unit/mL injection 2020-05 08:56: 42 Yes 40U inject 40 Units under the skin. [facility] psyllium (METAMUCIL FIBER SINGLES) 3.4 gram packet 2020-05 08:56: 42 Yes 1{packe t} Take 1 Packet by mouth. [facility] gabapentin 300 mg capsule 2020-05 08:56: 42 Yes 300mg Take 300 mg by mouth. [facility] lisinopril 20 mg tablet 2020-05 08:56: 42 Yes 20mg Take 20 mg by mouth. [facility] sennosides- docusate sodium 8.6-50 mg per tablet 2020-05 08:56: 42 Yes 2{tbl} Take 2 tablets by mouth. [facility] traMADOL 50 mg tablet 2020-05 08:56: 42 Yes 50mg Take 50 mg by mouth. [facility] insulin detemir U-100 100 unit/mL injection 2020-05 08:56: 42 Yes 40U inject 40 Units under the skin. [facility] psyllium (METAMUCIL FIBER SINGLES) 3.4 gram packet 2020-05 08:56: 42 Yes 1{packe t} Take 1 Packet by mouth. [facility] gabapentin 300 mg capsule 2020-05 08:56: 42 Yes 300mg Take 300 mg by mouth. [facility] lisinopril 20 mg tablet 2020-05 08:56: 42 Yes 20mg Take 20 mg by mouth. [facility] sennosides- docusate sodium 8.6-50 mg per tablet 2020-05 08:56: 42 Yes 2{tbl} Take 2 tablets by mouth. [facility] tra[facility]AD[facility] mg tablet 2020-05 08:56: 42 Yes 50mg Take 50 mg by mouth. [facility] insulin detemir U-100 100 unit/mL injection 2020-05 08:56: 42 Yes 40U inject 40 Units under the skin. [facility] psyllium (METAMUCIL FIBER SINGLES) 3.4 gram packet 2020-05 08:56: 42 Yes 1{packe t} Take 1 Packet by mouth. [facility] gabapentin 300 mg capsule 2020-05 08:56: 42 Yes 300mg Take 300 mg by mouth. [facility] lisinopril 20 mg tablet 2020-05 08:56: 42 Yes 20mg Take 20 mg by mouth. [facility] sennosides- docusate sodium 8.6-50 mg per tablet 2020-05 08:56: 42 Yes 2{tbl} Take 2 tablets by mouth. [facility] traMADOL 50 mg tablet 2020-05 08:56: 42 Yes 50mg Take 50 mg by mouth. [facility] insulin detemir U-100 100 unit/mL injection 2020-05 08:56: 42 Yes 40U inject 40 Units under the skin. [facility] psyllium (METAMUCIL FIBER SINGLES) 3.4 gram packet 2020-05 08:56: 42 Yes 1{packe t} Take 1 Packet by mouth. [facility] gabapentin 300 mg capsule 2020-05 08:56: 42 Yes 300mg Take 300 mg by mouth. [facility] lisinopril 20 mg tablet 2020-05 08:56: 42 Yes 20mg Take 20 mg by mouth. [facility] sennosides- docusate sodium 8.6-50 mg per tablet 2020-05 08:56: 42 Yes 2{tbl} Take 2 tablets by mouth. [facility] traMADOL 50 mg tablet 2020-05 08:56: 42 Yes 50mg Take 50 mg by mouth. [facility] insulin detemir U-100 100 unit/mL injection 2020-05 08:56: 42 Yes 40U inject 40 Units under the skin. [facility] psyllium (METAMUCIL FIBER SINGLES) 3.4 gram packet 2020-05 08:56: 42 Yes 1{packe t} Take 1 Packet by mouth. [facility] gabapentin 300 mg capsule 2020-05 08:56: 42 Yes 300mg Take 300 mg by mouth. [facility] lisinopril 20 mg tablet 2020-05 08:56: 42 Yes 20mg Take 20 mg by mouth. [facility] sennosides- docusate sodium 8.6-50 mg per tablet 2020-05 08:56: 42 Yes 2{tbl} Take 2 tablets by mouth. [facility] traMADOL 50 mg tablet 2020-05 08:56: 42 Yes 50mg Take 50 mg by mouth. [facility] insulin detemir U-100 100 unit/mL injection 2020-05 08:56: 42 Yes 40U inject 40 Units under the skin. [facility] psyllium (METAMUCIL FIBER SINGLES) 3.4 gram packet 2020-05 08:56: 42 Yes 1{packe t} Take 1 Packet by mouth. [facility] gabapentin 300 mg capsule 2020-05 08:56: 42 Yes 300mg Take 300 mg by mouth. [facility] lisinopril 20 mg tablet 2020-05 08:56: 42 Yes 20mg Take 20 mg by mouth. [facility] sennosides- docusate sodium 8.6-50 mg per tablet 2020-05 08:56: 42 Yes 2{tbl} Take 2 tablets by mouth. [facility] traMADOL 50 mg tablet 2020-05 08:56: 42 Yes 50mg Take 50 mg by mouth. [facility] insulin detemir U-100 100 unit/mL injection 2020-05 08:56: 42 Yes 40U inject 40 Units under the skin. [facility] psyllium (METAMUCIL FIBER SINGLES) 3.4 gram packet 2020-05 08:56: 42 Yes 1{packe t} Take 1 Packet by mouth. [facility] gabapentin 300 mg capsule 2020-05 08:56: 42 Yes 300mg Take 300 mg by mouth. [facility] lisinopril 20 mg tablet 2020-05 08:56: 42 Yes 20mg Take 20 mg by mouth. [facility] sennosides- docusate sodium 8.6-50 mg per tablet 2020-05 08:56: 42 Yes 2{tbl} Take 2 tablets by mouth. [facility] traMADOL 50 mg tablet 2020-05 08:56: 42 Yes 50mg Take 50 mg by mouth. [facility] insulin detemir U-100 100 unit/mL injection 2020-05 08:56: 42 Yes 40U inject 40 Units under the skin. [facility] psyllium (METAMUCIL FIBER SINGLES) 3.4 gram packet 2020-05 08:56: 42 Yes 1{packe t} Take 1 Packet by mouth. [facility] gabapentin 300 mg capsule 2020-05 08:56: 42 Yes 300mg Take 300 mg by mouth. [facility] lisinopril 20 mg tablet 2020-05 08:56: 42 Yes 20mg Take 20 mg by mouth. [facility] sennosides- docusate sodium 8.6-50 mg per tablet 2020-05 08:56: 42 Yes 2{tbl} Take 2 tablets by mouth. [facility] traMADOL 50 mg tablet 2020-05 08:56: 42 Yes 50mg Take 50 mg by mouth. [facility] insulin detemir U-100 100 unit/mL injection 2020-05 08:56: 42 Yes 40U inject 40 Units under the skin. [facility] psyllium (METAMUCIL FIBER SINGLES) 3.4 gram packet 2020-05 08:56: 42 Yes 1{packe t} Take 1 Packet by mouth. [facility] gabapentin 300 mg capsule 2020-05 08:56: 42 Yes 300mg Take 300 mg by mouth. [facility] lisinopril 20 mg tablet 2020-05 08:56: 42 Yes 20mg Take 20 mg by mouth. [facility] sennosides- docusate sodium 8.6-50 mg per tablet 2020-05 08:56: 42 Yes 2{tbl} Take 2 tablets by mouth. [facility] traMADOL 50 mg tablet 2020-05 08:56: 42 Yes 50mg Take 50 mg by mouth. [facility] insulin detemir U-100 100 unit/mL injection 2020-05 08:56: 42 Yes 40U inject 40 Units under the skin. [facility] psyllium (METAMUCIL FIBER SINGLES) 3.4 gram packet 2020-05 08:56: 42 Yes 1{packe t} Take 1 Packet by mouth. [facility] gabapentin 300 mg capsule 2020-05 08:56: 42 Yes 300mg Take 300 mg by mouth. [facility] lisinopril 20 mg tablet 2020-05 08:56: 42 Yes 20mg Take 20 mg by mouth. [facility] sennosides- docusate sodium 8.6-50 mg per tablet 2020-05 08:56: 42 Yes 2{tbl} Take 2 tablets by mouth. [facility] traMADOL 50 mg tablet 2020-05 08:56: 42 Yes 50mg Take 50 mg by mouth. [facility] insulin detemir U-100 100 unit/mL injection 2020-05 08:56: 42 Yes 40U inject 40 Units under the skin. [facility] psyllium (METAMUCIL FIBER SINGLES) 3.4 gram packet 2020-05 08:56: 42 Yes 1{packe t} Take 1 Packet by mouth. [facility] gabapentin 300 mg capsule 2020-05 08:56: 42 Yes 300mg Take 300 mg by mouth. [facility] lisinopril 20 mg tablet 2020-05 08:56: 42 Yes 20mg Take 20 mg by mouth. [facility] sennosides- docusate sodium 8.6-50 mg per tablet 2020-05 08:56: 42 Yes 2{tbl} Take 2 tablets by mouth. [facility] traMADOL 50 mg tablet 2020-05 08:56: 42 Yes 50mg Take 50 mg by mouth. [facility] insulin detemir U-100 100 unit/mL injection 2020-05 08:56: 42 Yes 40U inject 40 Units under the skin. [facility] psyllium (METAMUCIL FIBER SINGLES) 3.4 gram packet 2020-05 08:56: 42 Yes 1{packe t} Take 1 Packet by mouth. [facility] clopidogreL 75 mg tablet 06-03 08:07: 56 Yes 75mg Take 75 mg by mouth. [facility] clopidogreL 75 mg tablet 06-03 08:07: 56 Yes 75mg Take 75 mg by mouth. [facility] clopidogreL 75 mg tablet 06-03 08:07: 56 Yes 75mg Take 75 mg by mouth. [facility] clopidogreL 75 mg tablet 06-03 08:07: 56 Yes 75mg Take 75 mg by mouth. [facility] clopidogreL 75 mg tablet 06-03 08:07: 56 Yes 75mg Take 75 mg by mouth. [facility] clopidogreL 75 mg tablet 06-03 08:07: 56 Yes 75mg Take 75 mg by mouth. [facility] clopidogreL 75 mg tablet 06-03 08:07: 56 Yes 75mg Take 75 mg by mouth. [facility] clopidogreL 75 mg tablet 06-03 08:07: 56 Yes 75mg Take 75 mg by mouth. [facility] clopid[facility]L 75 mg tablet 06-03 08:07: 56 Yes 75mg Take 75 mg by mouth. [facility] clopidogreL 75 mg tablet 06-03 08:07: 56 Yes 75mg Take 75 mg by mouth. [facility] clopidog[facility]L 75 mg tablet 06-03 08:07: 56 Yes 75mg Take 75 mg by mouth. [facility] clopidogreL 75 mg tablet 06-03 08:07: 56 Yes 75mg Take 75 mg by mouth. [facility] clopidogreL 75 mg tablet 06-03 08:07: 56 Yes 75mg Take 75 mg by mouth. [facility] clopidogreL 75 mg tablet 06-03 08:07: 56 Yes 75mg Take 75 mg by mouth. [facility] clopidogreL 75 mg tablet 06-03 08:07: 56 Yes 75mg Take 75 mg by mouth. [facility] clopidogreL 75 mg tablet 06-03 08:07: 56 Yes 75mg Take 75 mg by mouth. [facility] clopidogreL 75 mg tablet 06-03 08:07: 56 Yes 75mg Take 75 mg by mouth. [facility] clopidogreL 75 mg tablet 06-03 08:07: 56 Yes 75mg Take 75 mg by mouth. [facility] clopidogreL 75 mg tablet 06-03 08:07: 56 Yes 75mg Take 75 mg by mouth. [facility] clopidogreL 75 mg tablet 06-03 08:07: 56 Yes 75mg Take 75 mg by mouth. [facility] clopidogreL 75 mg tablet 06-03 08:07: 56 Yes 75mg Take 75 mg by mouth. [facility] clopidogreL 75 mg tablet 06-03 08:07: 56 Yes 75mg Take 75 mg by mouth. [facility] clopidogreL 75 mg tablet 06-03 08:07: 56 Yes 75mg Take 75 mg by mouth. [facility] clopidogreL 75 mg tablet 06-03 08:07: 56 Yes 75mg Take 75 mg by mouth. [facility] clopidogreL 75 mg tablet 06-03 08:07: 56 Yes 75mg Take 75 mg by mouth. [facility] clopidogreL 75 mg tablet 06-03 08:07: 56 Yes 75mg Take 75 mg by mouth. [facility] clopidogreL 75 mg tablet 06-03 08:07: 56 Yes 75mg Take 75 mg by mouth. [facility] clopidogreL 75 mg tablet 06-03 08:07: 56 Yes 75mg Take 75 mg by mouth. [facility] clopidogreL 75 mg tablet 06-03 08:07: 56 Yes 75mg Take 75 mg by mouth. [facility] clopidogreL 75 mg tablet 06-03 08:07: 56 Yes 75mg Take 75 mg by mouth. [facility] diclofenac 75 mg EC tablet 2018-05 00:00: 00 Yes TAKE 1 TABLET BY MOUTH TWICE DAILY WITH MEALS FOR 30 DAYS [facility] diclofenac 75 mg EC tablet 2018-05 00:00: 00 Yes TAKE 1 TABLET BY MOUTH TWICE DAILY WITH MEALS FOR 30 DAYS [facility] diclofenac 75 mg EC tablet 2018-05 00:00: 00 Yes TAKE 1 TABLET BY MOUTH TWICE DAILY WITH MEALS FOR 30 DAYS [facility] diclofenac 75 mg EC tablet 2018-05 00:00: 00 Yes TAKE 1 TABLET BY MOUTH TWICE DAILY WITH MEALS FOR 30 DAYS [facility] diclofenac 75 mg EC tablet 2018-05 00:00: 00 Yes TAKE 1 TABLET BY MOUTH TWICE DAILY WITH MEALS FOR 30 DAYS [facility] diclofenac 75 mg EC tablet 2018-05 00:00: 00 Yes TAKE 1 TABLET BY MOUTH TWICE DAILY WITH MEALS FOR 30 DAYS [facility] diclofenac 75 mg EC tablet 2018-05 00:00: 00 Yes TAKE 1 TABLET BY MOUTH TWICE DAILY WITH MEALS FOR 30 DAYS [facility] diclofenac 75 mg EC tablet 2018-05 00:00: 00 Yes TAKE 1 TABLET BY MOUTH TWICE DAILY WITH MEALS FOR 30 DAYS [facility] diclofenac 75 mg EC tablet 2019-1 2-24 00:00: 00 Yes TAKE 1 TABLET BY MOUTH TWICE DAILY WITH MEALS FOR 30 DAYS [facility] diclofenac 75 mg EC tablet 2018-05 2-24 00:00: 00 Yes TAKE 1 TABLET BY MOUTH TWICE DAILY WITH MEALS FOR 30 DAYS [facility] diclofenac 75 mg EC tablet 2018-05 2-24 00:00: 00 Yes TAKE 1 TABLET BY MOUTH TWICE DAILY WITH MEALS FOR 30 DAYS [facility] diclofenac 75 mg EC tablet 2018-05 00:00: 00 Yes TAKE 1 TABLET BY MOUTH TWICE DAILY WITH MEALS FOR 30 DAYS [facility] diclofenac 75 mg EC tablet 2018-05 00:00: 00 06-11 00:00 :00 No TAKE 1 TABLET BY MOUTH TWICE DAILY WITH MEALS FOR 30 DAYS [facility] diclofenac 75 mg EC tablet 2018-05 00:00: 00 06-11 00:00 :00 No TAKE 1 TABLET BY MOUTH TWICE DAILY WITH MEALS FOR 30 DAYS [facility] diclofenac 75 mg EC tablet 2018-05 00:00: 00 06-11 00:00 :00 No TAKE 1 TABLET BY MOUTH TWICE DAILY WITH MEALS FOR 30 DAYS [facility] LIRAGLUTIDE (VICTOZA 3-JOLEEN SC) 10-22 09:07: 29 Yes inject under the skin. [facility] LIRAGLUTIDE (VICTOZA 3-JOLEEN SC) 10-22 09:07: 29 Yes inject under the skin. [facility] LIRAGLUTIDE (VICTOZA 3-JOLEEN SC) 10-22 09:07: 29 Yes inject under the skin. [facility] LIRAGLUTIDE (VICTOZA 3-JOLEEN SC) 10-22 09:07: 29 Yes inject under the skin. [facility] LIRAGLUTIDE (VICTOZA 3-JOLEEN SC) 10-22 09:07: 29 Yes inject under the skin. [facility] LIRAGLUTIDE (VICTOZA 3-JOLEEN SC) 10-22 09:07: 29 Yes inject under the skin. [facility] LIRAGLUTIDE (VICTOZA 3-JOLEEN SC) 10-22 09:07: 29 Yes inject under the skin. [facility] LIRAGLUTIDE (VICTOZA 3-JOLEEN SC) 10-22 09:07: 29 Yes inject under the skin. [facility] LIRAGLUTIDE (VICTOZA 3-JOLEEN SC) 10-22 09:07: 29 Yes inject under the skin. [facility] LIRAGLUTIDE (VICTOZA 3-JOLEEN SC) 10-22 09:07: 29 Yes inject under the skin. [facility] LIRAGLUTIDE (VICTOZA 3-JOLEEN SC) 10-22 09:07: 29 Yes inject under the skin. [facility] LIRAGLUTIDE (VICTOZA 3-JOLEEN SC) 10-22 09:07: 29 Yes inject under the skin. [facility] LIRAGLUTIDE (VICTOZA 3-JOLEEN SC) 10-22 09:07: 29 Yes inject under the skin. [facility] LIRAGLUTIDE (VICTOZA 3-JOLEEN SC) 10-22 09:07: 29 Yes inject under the skin. [facility] LIRAGLUTIDE (VICTOZA 3-JOLEEN SC) 10-22 09:07: 29 Yes inject under the skin. [facility] LIRAGLUTIDE (VICTOZA 3-JOLEEN SC) 10-22 09:07: 29 Yes inject under the skin. [facility] LIRAGLUTIDE (VICTOZA 3-JOLEEN SC) 10-22 09:07: 29 Yes inject under the skin. [facility] LIRAGLUTIDE (VICTOZA 3-JOLEEN SC) 10-22 09:07: 29 Yes inject under the skin. [facility] LIRAGLUTIDE (VICTOZA 3-JOLEEN SC) 10-22 09:07: 29 Yes inject under the skin. [facility] LIRAGLUTIDE (VICTOZA 3-JOLEEN SC) 0 10-22 09:07: 29 Yes inject under the skin. [facility] LIRAGLUTIDE (VICTOZA 3-JOLEEN SC) 0 10-22 09:07: 29 Yes inject under the skin. [facility] LIRAGLUTIDE (VICTOZA 3-JOLEEN SC) 10-22 09:07: 29 Yes inject under the skin. [facility] LIRAGLUTIDE (VICTOZA 3-JOLEEN SC) 10-22 09:07: 29 Yes inject under the skin. [facility] LIRAGLUTIDE (VICTOZA 3-JOLEEN SC) 10-22 09:07: 29 Yes inject under the skin. [facility] LIRAGLUTIDE (VICTOZA 3-JOLEEN SC) 10-22 09:07: 29 Yes inject under the skin. [facility] LIRAGLUTIDE (VICTOZA 3-JOLEEN SC) 10-22 09:07: 29 Yes inject under the skin. [facility] LIRAGLUTIDE (VICTOZA 3-JOLEEN SC) 10-22 09:07: 29 Yes inject under the skin. [facility] LIRAGLUTIDE (VICTOZA 3-JOLEEN SC) 10-22 09:07: 29 Yes inject under the skin. [facility] LIRAGLUTIDE (VICTOZA 3-JOLEEN SC) 10-22 09:07: 29 Yes inject under the skin. [facility] LIRAGLUTIDE (VICTOZA 3-JOLEEN SC) 10-22 09:07: 29 Yes inject under the skin. [facility] DULAGLUTIDE (TRULICITY SC) 09-16 14:58: 17 Yes inject under the skin weekly. [facility] DULAGLUTIDE (TRULICITY SC) 0 09-16 14:58: 17 Yes inject under the skin weekly. [facility] DULAGLUTIDE (TRULICITY SC) 0 09-16 14:58: 17 Yes inject under the skin weekly. [facility] DULAGLUTIDE (TRULICITY SC) 0 09-16 14:58: 17 Yes inject under the skin weekly. [facility] DULAGLUTIDE (TRULICITY SC) 0 09-16 14:58: 17 Yes inject under the skin weekly. [facility] DULAGLUTIDE (TRULICITY SC) 09-16 14:58: 17 Yes inject under the skin weekly. [facility] DULAGLUTIDE (TRULICITY SC) 09-16 14:58: 17 Yes inject under the skin weekly. [facility] DULAGLUTIDE (TRULICITY SC) 09-16 14:58: 17 Yes inject under the skin weekly. [facility] DULAGLUTIDE (TRULICITY SC) 09-16 14:58: 17 Yes inject under the skin weekly. [facility] DULAGLUTIDE (TRULICITY SC) 09-16 14:58: 17 Yes inject under the skin weekly. [facility] DULAGLUTIDE (TRULICITY SC) 09-16 14:58: 17 Yes inject under the skin weekly. [facility] DULAGLUTIDE (TRULICITY SC) 09-16 14:58: 17 Yes inject under the skin weekly. [facility] DULAGLUTIDE (TRULICITY SC) 09-16 14:58: 17 Yes inject under the skin weekly. [facility] DULAGLUTIDE (TRULICITY SC) 09-16 14:58: 17 Yes inject under the skin weekly. [facility] DULAGLUTIDE (TRULICITY SC) 09-16 14:58: 17 Yes inject under the skin weekly. [facility] DULAGLUTIDE (TRULICITY SC) 09-16 14:58: 17 Yes inject under the skin weekly. [facility] DULAGLUTIDE (TRULICITY SC) 09-16 14:58: 17 Yes inject under the skin weekly. [facility] DULAGLUTIDE (TRULICITY SC) 09-16 14:58: 17 Yes inject under the skin weekly. [facility] DULAGLUTIDE (TRULICITY SC) 09-16 14:58: 17 Yes inject under the skin weekly. [facility] DULAGLUTIDE (TRULICITY SC) 09-16 14:58: 17 Yes inject under the skin weekly. [facility] DULAGLUTIDE (TRULICITY SC) 09-16 14:58: 17 Yes inject under the skin weekly. [facility] DULAGLUTIDE (TRULICITY SC) 09-16 14:58: 17 Yes inject under the skin weekly. [facility] DULAGLUTIDE (TRULICITY SC) 09-16 14:58: 17 Yes inject under the skin weekly. [facility] DULAGLUTIDE (TRULICITY SC) 09-16 14:58: 17 Yes inject under the skin weekly. [facility] DULAGLUTIDE (TRULICITY SC) 09-16 14:58: 17 Yes inject under the skin weekly. [facility] DULAGLUTIDE (TRULICITY SC) 09-16 14:58: 17 Yes inject under the skin weekly. [facility] DULAGLUTIDE (TRULICITY SC) 09-16 14:58: 17 Yes inject under the skin weekly. [facility] DULAGLUTIDE (TRULICITY SC) 09-16 14:58: 17 Yes inject under the skin weekly. [facility] DULAGLUTIDE (TRULICITY SC) 09-16 14:58: 17 Yes inject under the skin weekly. [facility] DULAGLUTIDE (TRULICITY SC) 09-16 14:58: 17 Yes inject under the skin weekly. [facility] HUMULIN R U-500, CONC, KWIKPEN 500 unit/mL (3 mL) In 2015-05 00:00: 00 Yes GIVE 80 UNITS BEFORE BREAKFAST AND DINNER AND INCREASE DIRECTED TDD 220 [facility] HUMULIN R U-500, CONC, KWIKPEN 500 unit/mL (3 mL) In 2015-05 00:00: 00 Yes GIVE 80 UNITS BEFORE BREAKFAST AND DINNER AND INCREASE DIRECTED TDD 220 [facility] HUMULIN R U-500, CONC, KWIKPEN 500 unit/mL (3 mL) In 2015-05 00:00: 00 Yes GIVE 80 UNITS BEFORE BREAKFAST AND DINNER AND INCREASE DIRECTED TDD 220 [facility] HUMULIN R U-500, CONC, KWIKPEN 500 unit/mL (3 mL) In 2015-05 00:00: 00 Yes GIVE 80 UNITS BEFORE BREAKFAST AND DINNER AND INCREASE DIRECTED TDD 220 [facility] HUMULIN R U-500, CONC, KWIKPEN 500 unit/mL (3 mL) In 2015-05 00:00: 00 Yes GIVE 80 UNITS BEFORE BREAKFAST AND DINNER AND INCREASE DIRECTED TDD 220 [facility] HUMULIN R U-500, CONC, KWIKPEN 500 unit/mL (3 mL) In 2015-05 00:00: 00 Yes GIVE 80 UNITS BEFORE BREAKFAST AND DINNER AND INCREASE DIRECTED TDD 220 [facility] HUMULIN R U-500, CONC, KWIKPEN 500 unit/mL (3 mL) In 2015-05 00:00: 00 Yes GIVE 80 UNITS BEFORE BREAKFAST AND DINNER AND INCREASE DIRECTED TDD 220 [facility] HUMULIN R U-500, CONC, KWIKPEN 500 unit/mL (3 mL) In 2015-05 00:00: 00 Yes GIVE 80 UNITS BEFORE BREAKFAST AND DINNER AND INCREASE DIRECTED TDD 220 [facility] HUMULIN R U-500, CONC, KWIKPEN 500 unit/mL (3 mL) In 2015-05 00:00: 00 Yes GIVE 80 UNITS BEFORE BREAKFAST AND DINNER AND INCREASE DIRECTED TDD 220 [facility] HUMULIN R U-500, CONC, KWIKPEN 500 unit/mL (3 mL) In 2015-05 00:00: 00 Yes GIVE 80 UNITS BEFORE BREAKFAST AND DINNER AND INCREASE DIRECTED TDD 220 [facility] HUMULIN R U-500, CONC, KWIKPEN 500 unit/mL (3 mL) In 2015-05 00:00: 00 Yes GIVE 80 UNITS BEFORE BREAKFAST AND DINNER AND INCREASE DIRECTED TDD 220 [facility] HUMULIN R U-500, CONC, KWIKPEN 500 unit/mL (3 mL) In 2015-05 00:00: 00 Yes GIVE 80 UNITS BEFORE BREAKFAST AND DINNER AND INCREASE DIRECTED TDD 220 [facility] HUMULIN R U-500, CONC, KWIKPEN 500 unit/mL (3 mL) In 2015-05 00:00: 00 Yes GIVE 80 UNITS BEFORE BREAKFAST AND DINNER AND INCREASE DIRECTED TDD 220 [facility] HUMULIN R U-500, CONC, KWIKPEN 500 unit/mL (3 mL) In 2015-05 00:00: 00 Yes GIVE 80 UNITS BEFORE BREAKFAST AND DINNER AND INCREASE DIRECTED TDD 220 [facility] HUMULIN R U-500, CONC, KWIKPEN 500 unit/mL (3 mL) In 2015-05 00:00: 00 Yes GIVE 80 UNITS BEFORE BREAKFAST AND DINNER AND INCREASE DIRECTED TDD 220 [facility] HUMULIN R U-500, CONC, KWIKPEN 500 unit/mL (3 mL) In 2015-05 00:00: 00 Yes GIVE 80 UNITS BEFORE BREAKFAST AND DINNER AND INCREASE DIRECTED TDD 220 [facility] HUMULIN R U-500, CONC, KWIKPEN 500 unit/mL (3 mL) In 2015-05 00:00: 00 Yes GIVE 80 UNITS BEFORE BREAKFAST AND DINNER AND INCREASE DIRECTED TDD 220 [facility] HUMULIN R U-500, CONC, KWIKPEN 500 unit/mL (3 mL) In 2015-05 00:00: 00 Yes GIVE 80 UNITS BEFORE BREAKFAST AND DINNER AND INCREASE DIRECTED TDD 220 [facility] HUMULIN R U-500, CONC, KWIKPEN 500 unit/mL (3 mL) In 2015-05 00:00: 00 Yes GIVE 80 UNITS BEFORE BREAKFAST AND DINNER AND INCREASE DIRECTED TDD 220 [facility] HUMULIN R U-500, CONC, KWIKPEN 500 unit/mL (3 mL) In 2015-05 00:00: 00 Yes GIVE 80 UNITS BEFORE BREAKFAST AND DINNER AND INCREASE DIRECTED TDD 220 [facility] HUMULIN R U-500, CONC, KWIKPEN 500 unit/mL (3 mL) In 2015-05 00:00: 00 Yes GIVE 80 UNITS BEFORE BREAKFAST AND DINNER AND INCREASE DIRECTED TDD 220 [facility] HUMULIN R U-500, CONC, KWIKPEN 500 unit/mL (3 mL) In 2015-05 00:00: 00 Yes GIVE 80 UNITS BEFORE BREAKFAST AND DINNER AND INCREASE DIRECTED TDD 220 [facility] HUMULIN R U-500, CONC, KWIKPEN 500 unit/mL (3 mL) In 2015-05 00:00: 00 Yes GIVE 80 UNITS BEFORE BREAKFAST AND DINNER AND INCREASE DIRECTED TDD 220 [facility] HUMULIN R U-500, CONC, KWIKPEN 500 unit/mL (3 mL) In 2015-05 00:00: 00 Yes GIVE 80 UNITS BEFORE BREAKFAST AND DINNER AND INCREASE DIRECTED TDD 220 [facility] HUMULIN R U-500, CONC, KWIKPEN 500 unit/mL (3 mL) In 2015-05 00:00: 00 Yes GIVE 80 UNITS BEFORE BREAKFAST AND DINNER AND INCREASE DIRECTED TDD 220 [facility] HUMULIN R U-500, CONC, KWIKPEN 500 unit/mL (3 mL) In 2015-05 00:00: 00 Yes GIVE 80 UNITS BEFORE BREAKFAST AND DINNER AND INCREASE DIRECTED TDD 220 [facility] HUMULIN R U-500, CONC, KWIKPEN 500 unit/mL (3 mL) In 2015-05 00:00: 00 Yes GIVE 80 UNITS BEFORE BREAKFAST AND DINNER AND INCREASE DIRECTED TDD 220 [facility] HUMULIN R U-500, CONC, KWIKPEN 500 unit/mL (3 mL) In 2015-05 00:00: 00 Yes GIVE 80 UNITS BEFORE BREAKFAST AND DINNER AND INCREASE DIRECTED TDD 220 [facility] HUMULIN R U-500, CONC, KWIKPEN 500 unit/mL (3 mL) In 2015-05 00:00: 00 Yes GIVE 80 UNITS BEFORE BREAKFAST AND DINNER AND INCREASE DIRECTED TDD 220 [facility] HUMULIN R U-500, CONC, KWIKPEN 500 unit/mL (3 mL) In 2015-05 00:00: 00 Yes GIVE 80 UNITS BEFORE BREAKFAST AND DINNER AND INCREASE DIRECTED TDD 220 [facility] CIALIS 20 mg tablet 2015-05 00:00: 00 Yes TAKE 1 TABLET BY ORAL ROUTE EVERY WEEK NEEDED [facility] CIALIS 20 mg tablet 2015-05 00:00: 00 Yes TAKE 1 TABLET BY ORAL ROUTE EVERY WEEK NEEDED [facility] CIALIS 20 mg tablet 2015-05 00:00: 00 Yes TAKE 1 TABLET BY ORAL ROUTE EVERY WEEK NEEDED [facility] CIALIS 20 mg tablet 2015-05 00:00: 00 Yes TAKE 1 TABLET BY ORAL ROUTE EVERY WEEK NEEDED [facility] CIALIS 20 mg tablet 2015-05 00:00: 00 Yes TAKE 1 TABLET BY ORAL ROUTE EVERY WEEK NEEDED [facility] CIALIS 20 mg tablet 2015-05 00:00: 00 Yes TAKE 1 TABLET BY ORAL ROUTE EVERY WEEK NEEDED [facility] CIALIS 20 mg tablet 2015-05 00:00: 00 Yes TAKE 1 TABLET BY ORAL ROUTE EVERY WEEK NEEDED [facility] CIALIS 20 mg tablet 2015-05 00:00: 00 Yes TAKE 1 TABLET BY ORAL ROUTE EVERY WEEK NEEDED [facility] CIALIS 20 mg tablet 2015-05 00:00: 00 Yes TAKE 1 TABLET BY ORAL ROUTE EVERY WEEK NEEDED [facility] CIALIS 20 mg tablet 2015-05 00:00: 00 Yes TAKE 1 TABLET BY ORAL ROUTE EVERY WEEK NEEDED [facility] CIALIS 20 mg tablet 2015-05 00:00: 00 Yes TAKE 1 TABLET BY ORAL ROUTE EVERY WEEK NEEDED [facility] CIALIS 20 mg tablet 2015-05 00:00: 00 Yes TAKE 1 TABLET BY ORAL ROUTE EVERY WEEK NEEDED [facility] CIALIS 20 mg tablet 2015-05 00:00: 00 Yes TAKE 1 TABLET BY ORAL ROUTE EVERY WEEK NEEDED [facility] CIALIS 20 mg tablet 2015-05 00:00: 00 Yes TAKE 1 TABLET BY ORAL ROUTE EVERY WEEK NEEDED [facility] CIALIS 20 mg tablet 2015-05 00:00: 00 Yes TAKE 1 TABLET BY ORAL ROUTE EVERY WEEK NEEDED [facility] CIALIS 20 mg tablet 2015-05 00:00: 00 Yes TAKE 1 TABLET BY ORAL ROUTE EVERY WEEK NEEDED [facility] CIALIS 20 mg tablet 2015-05 00:00: 00 Yes TAKE 1 TABLET BY ORAL ROUTE EVERY WEEK NEEDED [facility] CIALIS 20 mg tablet 2015-05 00:00: 00 Yes TAKE 1 TABLET BY ORAL ROUTE EVERY WEEK NEEDED [facility] CIALIS 20 mg tablet 2015-05 00:00: 00 Yes TAKE 1 TABLET BY ORAL ROUTE EVERY WEEK NEEDED [facility] CIALIS 20 mg tablet 2015-05 00:00: 00 Yes TAKE 1 TABLET BY ORAL ROUTE EVERY WEEK NEEDED [facility] CIALIS 20 mg tablet 2015-05 00:00: 00 Yes TAKE 1 TABLET BY ORAL ROUTE EVERY WEEK NEEDED [facility] CIALIS 20 mg tablet 2015-05 00:00: 00 Yes TAKE 1 TABLET BY ORAL ROUTE EVERY WEEK NEEDED [facility] CIALIS 20 mg tablet 2015-05 00:00: 00 Yes TAKE 1 TABLET BY ORAL ROUTE EVERY WEEK NEEDED [facility] CIALIS 20 mg tablet 2015-05 00:00: 00 Yes TAKE 1 TABLET BY ORAL ROUTE EVERY WEEK NEEDED [facility] CIALIS 20 mg tablet 2015-05 00:00: 00 Yes TAKE 1 TABLET BY ORAL ROUTE EVERY WEEK NEEDED [facility] CIALIS 20 mg tablet 2015-05 00:00: 00 Yes TAKE 1 TABLET BY ORAL ROUTE EVERY WEEK NEEDED [facility] CIALIS 20 mg tablet 2015-05 00:00: 00 Yes TAKE 1 TABLET BY ORAL ROUTE EVERY WEEK NEEDED [facility] CIALIS 20 mg tablet 2015-05 00:00: 00 Yes TAKE 1 TABLET BY ORAL ROUTE EVERY WEEK NEEDED [facility] CIALIS 20 mg tablet 2015-05 00:00: 00 Yes TAKE 1 TABLET BY ORAL ROUTE EVERY WEEK NEEDED [facility] CIALIS 20 mg tablet 2015-05 2 00:00: 00 Yes TAKE 1 TABLET BY ORAL ROUTE EVERY WEEK NEEDED [facility] atorvastati n 80 mg tablet 11-17 00:00: 00 Yes 40mg Take 40 mg by mouth. [facility] atorvastati n 80 mg tablet 11-17 00:00: 00 Yes 40mg Take 40 mg by mouth. [facility] atorvastati n 80 mg tablet 11-17 00:00: 00 Yes 40mg Take 40 mg by mouth. [facility] atorvastati n 80 mg tablet 11-17 00:00: 00 Yes 40mg Take 40 mg by mouth. [facility] atorvastati n 80 mg tablet 11-17 00:00: 00 Yes 40mg Take 40 mg by mouth. [facility] atorvastati n 80 mg tablet 11-17 00:00: 00 Yes 40mg Take 40 mg by mouth. [facility] atorvastati n 80 mg tablet 11-17 00:00: 00 Yes 40mg Take 40 mg by mouth. [facility] atorvastati n 80 mg tablet 11-17 00:00: 00 Yes 40mg Take 40 mg by mouth. [facility] atorvastati n 80 mg tablet 11-17 00:00: 00 Yes 40mg Take 40 mg by mouth. [facility] atorvastati n 80 mg tablet 11-17 00:00: 00 Yes 40mg Take 40 mg by mouth. [facility] atorvastati n 80 mg tablet 11-17 00:00: 00 Yes 40mg Take 40 mg by mouth. [facility] atorvastati n 80 mg tablet 11-17 00:00: 00 Yes 40mg Take 40 mg by mouth. [facility] atorvastati n 80 mg tablet 11-17 00:00: 00 Yes 40mg Take 40 mg by mouth. [facility] atorvastati n 80 mg tablet 11-17 00:00: 00 Yes 40mg Take 40 mg by mouth. [facility] atorvastati n 80 mg tablet 11-17 00:00: 00 Yes 40mg Take 40 mg by mouth. [facility] atorvastati n 80 mg tablet 11-17 00:00: 00 Yes 40mg Take 40 mg by mouth. [facility] atorvastati n 80 mg tablet 11-17 00:00: 00 Yes 40mg Take 40 mg by mouth. [facility] atorvastati n 80 mg tablet 11-17 00:00: 00 Yes 40mg Take 40 mg by mouth. [facility] atorvastati n 80 mg tablet 11-17 00:00: 00 Yes 40mg Take 40 mg by mouth. [facility] atorvastati n 80 mg tablet 11-17 00:00: 00 Yes 40mg Take 40 mg by mouth. [facility] atorvastati n 80 mg tablet 11-17 00:00: 00 Yes 40mg Take 40 mg by mouth. [facility] atorvastati n 80 mg tablet 11-17 00:00: 00 Yes 40mg Take 40 mg by mouth. [facility] atorvastati n 80 mg tablet 11-17 00:00: 00 Yes 40mg Take 40 mg by mouth. [facility] atorvastati n 80 mg tablet 11-17 00:00: 00 Yes 40mg Take 40 mg by mouth. [facility] atorvastati n 80 mg tablet 11-17 00:00: 00 Yes 40mg Take 40 mg by mouth. [facility] atorvastati n 80 mg tablet 11-17 00:00: 00 Yes 40mg Take 40 mg by mouth. [facility] atorvastati n 80 mg tablet 11-17 00:00: 00 Yes 40mg Take 40 mg by mouth. [facility] atorvastati n 80 mg tablet 11-17 00:00: 00 Yes 40mg Take 40 mg by mouth. [facility] atorvastati n 80 mg tablet 11-17 00:00: 00 Yes 40mg Take 40 mg by mouth. [facility] atorvastati n 80 mg tablet 11-17 00:00: 00 Yes 40mg Take 40 mg by mouth. [facility] Vital Signs Vital Name Observation Time Observation Value Comments S ource Body height 2022-12-31 17:56:00 185.4 cm [facility] Body weight 2022-12-31 17:56:00 144.697 kg [facility] BMI 2022-12-31 17:56:00 42.09 kg/m2 [facility] Body height 2022-12-24 17:54:00 185.4 cm [facility] Body weight 2022-12-24 17:54:00 144.697 kg [facility] BMI 2022-12-24 17:54:00 42.09 kg/m2 [facility] [facility] Body weight 2022-12-17 17:57:00 144.697 kg [facility] BMI 2022-12-17 17:57:00 42.09 kg/m2 [facility] Body height 2022-11-11 20:31:00 185.4 cm [facility] [place] [facility] Body weight 2022-11-11 20:31:00 144.879 kg [facility] [place] [facility] BMI 2022-11-11 20:31:00 42.14 kg/m2 [facility] [place] [facility] Body height 2022-06-18 20:15:00 185.4 cm [facility] Body weight 2022-06-18 20:15:00 89.812 kg [facility] [place] [facility] BMI 2022-06-18 20:15:00 26.12 kg/m2 [facility] [place] [facility] Body weight 2022-06-09 20:10:00 89.812 kg [facility] [place] [facility] BMI 2022-06-09 20:10:00 26.12 kg/m2 [facility] Body height 2022-06-02 20:15:00 185.4 cm [facility] Body weight 2022-06-02 20:15:00 89.812 kg [facility] BMI 2022-06-02 20:15:00 26.12 kg/m2 [facility] Systolic blood pressure 2021-11-28 14:15:00 105 mm[Hg] [facility] Diastolic blood pressure 2021-11-28 14:15:00 63 mm[Hg] [facility] Heart rate 2021-11-28 14:15:00 76 /min [facility] Body weight 2021-11-28 14:15:00 135.172 kg [facility] BMI 2021-11-28 14:15:00 39.32 kg/m2 [facility] Oxygen saturation in Arterial blood by Pulse oximetry 2021-11-28 14:15:00 98 /min [facility] Procedures Procedure Date / Time Performed Performing Clinician Source ASSIGNMENT OF BENEFITS 2022-11-20 17:40:26 [place] r Unassigned, [place] [facility] INSURANCE CORRESPONDENCE 2022-09-11 05:01:00 Doc tor Unassigned, [place] [facility] INSURANCE CORRESPONDENCE 2022-05-29 06:01:00 Doc tor Unassigned, [place] [facility] INSURANCE CORRESPONDENCE 2021-11-08 05:01:00 Doc jocy Unassigned, [place] [facility] Encounters Start Date/Time End Date/Time Encounter Type Admission Type Attending Clinicians Care Facility Care Department Encounter ID Source 2022-12-31 13:15:00 2022-12-31 13:30:00 [facility] 1.2.840.114 350.1.13.10 4.2.7.2.686 [id number] 198 [id number] [facility] 2022-12-31 13:15:00 2022-12-31 13:15:00 Outpatient R ALISE MONTGOMERY [facility] [id number] [facility] 2022-12-24 13:15:00 2022-12-24 14:58:05 Outpatient R WAGNER NDIAYE [facility] [id number] [facility] 2022-12-24 13:15:00 2022-12-24 14:58:05 Office Visit Wagner Ndiaye [facility] 1..840.114 350.1.13.10 4.2.7.2.686 [id number] 198 [id number] [facility] 2022-12-17 13:15:00 2022-12-17 15:32:12 Outpatient R MONTGOMERY [facility] [id number] [facility] 2022-12-17 13:15:00 2022-12-17 15:32:12 Office Visit Valentina [facility] 1..840.114 350.1.13.10 4.2.7.2.686 [id number] 198 [id number] [facility] 2022-11-20 13:00:00 2022-11-20 13:00:00 Outpatient R VALENTINA [facility] [id number] [facility] 2022-11-20 00:00:00 2022-11-20 00:00:00 Orders Only Doctor Unassigned, [place] [facility] 1.840.114 350.1.13.10 4.2.7.2.686 [id number] [facility] 2022-11-11 15:45:00 2022-11-11 16:00:00 Office Visit Valentina [facility]?TANIYA [facility] OFF[facility] 1..840.114 350.1.13.10 4.2.7.2.686 [id number] 198 [id number] [facility] 2022-11-11 15:45:00 2022-11-11 15:45:00 Outpatient R VALENTINA [facility] [id number] [facility] 2022-09-11 00:00:00 2022-09-11 00:00:00 Orders Only Doctor Unassigned, [place] [facility] 1.114 350.1.13.10 4.2.7.2.686 [id number] [id number] [facility] 2022-07-30 00:00:00 2022-07-30 00:00:00 [facility] 1.114 350.1.13.10 4.2.7.2.686 [id number] 198 [id number] [facility] 2022-06-18 14:30:00 2022-06-18 14:45:00 Office Visit Wagner Ndaiye [facility] 1.114 350.1.13.10 4.2.7.2.686 [id number] 198 [id number] [facility] 2022-06-18 14:30:00 2022-06-18 14:30:00 Outpatient R WAGNER NDIAYE [facility] [id number] [facility] 2022-06-16 15:00:00 2022-06-16 15:00:00 Outpatient ALISE WILSON [facility] [id number] [facility] 2022-06-12 00:00:00 2022-06-12 00:00:00 [facility] 1.114 350.1.13.10 4.2.7.2.686 [id number] 198 [id number] [facility] 2022-06-10 00:00:00 2022-06-10 00:00:00 Demetri Montgomery [facility] VEL?TANIYA [facility] OFF[facility] 1.114 350.1.13.10 4.2.7.2.686 [id number] 198 [id number] [facility] 2022-06-09 14:45:00 2022-06-09 14:46:41 Outpatient R VALENTINA ALISE [facility] [id number] [facility] 2022-06-09 14:45:00 2022-06-09 14:46:41 [facility] 1.0114 350.1.13.10 4.2.7.2.686 [id number] [facility] 2022-06-02 14:45:00 2022-06-02 14:45:00 Office Visit Valentina [facility] OFF[facility] BU[facility] 1.114 350.1.13.10 4.2.7.2.686 [id number] 198 [id number] [facility] 2022-06-02 14:45:00 2022-06-02 14:30:42 Outpatient R VALENTINA [facility] [id number] [facility] 2022-05-30 00:00:00 2022-05-30 00:00:00 Telephone Wagner Ndiaye [facility] 1.114 350.1.13.10 4.2.7.2.686 [id number] 198 [id number] [facility] 2022-05-29 00:00:00 2022-05-29 00:00:00 Orders Only Doctor Unassigned, [place] [facility] 1.114 350.1.13.10 4.2.7.2.686 [id number] [id number] [facility] 2022-05-27 00:00:00 2022-05-27 00:00:00 Telephone Valentina [facility]?TANIYA [facility] OFF[facility] BU[facility] 1.114 350.1.13.10 4.2.7.2.686 [id number] 198 [id number] [facility] 2022-05-15 14:45:00 2022-05-15 15:00:00 [facility] 1..840.114 350.1.13.10 4.2.7.2.686 [id number] 198 [id number] [facility] 2022-05-15 14:45:00 2022-05-15 14:45:00 Outpatient R VALENTINA [facility] [id number] [facility] 2022-04-28 00:00:00 2022-04-28 00:00:00 Refill Valentina [facility] VEL?TANIYA [facility] OFF[facility] BUILD[facility] 1..840.114 350.1.13.10 4.2.7.2.686 [id number] 198 [id number] [facility] 2022-03-06 00:00:00 2022-03-06 00:00:00 Refill [facility]YA [facility] 1..840.114 350.1.13.10 4.2.7.2.686 [id number] 198 [id number] [facility] 2022-01-22 00:00:00 2022-01-22 00:00:00 Refill Valentina [facility] VEL?[facility] 1..840.114 350.1.13.10 4.2.7.2.686 [id number] 198 [id number] [facility] 2021-12-04 00:00:00 2021-12-04 00:00:00 Refill Valentina [facility] VEL?[facility] OFF[facility] BU[facility] 1..840.114 350.1.13.10 4.2.7.2.686 [id number] [facility] 2021-11-28 09:30:00 2021-11-28 09:45:00 Office Visit Valentina [facility] VEL?[facility] 1.2.840.114 350.1.13.10 4.2.7.2.686 [id number] 198 [id number] [facility] 2021-11-28 09:30:00 2021-11-28 09:30:00 Outpatient Rubén VALENTINA [facility] [id number] [facility] 2021-11-28 09:30:00 2021-11-28 09:30:00 Outpatient R VALENTINA [facility] [id number] [facility] 2021-11-21 09:30:00 2021-11-21 10:25:10 Outpatient R VALENTINA [facility] [id number] [facility] 2021-11-21 09:30:00 2021-11-21 10:25:10 Office Visit Wagner [facility] 1.2.840.114 350.1.13.10 4.2.7.2.686 [id number] 198 [id number] [facility] 2021-11-21 09:30:00 2021-11-21 10:25:10 [facility] [id number] [facility] 2021-11-14 09:30:00 2021-11-14 09:45:00 Office Visit Valentina [facility] VEL?[facility] 1.2.840.114 350.1.13.10 4.2.7.2.686 [id number] [facility] 2021-11-14 09:30:00 2021-11-14 09:30:00 Outpatient Rubén MONTGOMERY [facility] [id number] [facility] 2021-11-08 00:00:00 2021-11-08 00:00:00 Telephone Montgomery [facility] VEL?[facility] 1.840.114 350.1.13.10 4.2.7.2.686 [id number] 198 [id number] [facility] 2021-11-08 00:00:00 2021-11-08 00:00:00 Orders Only Doctor Unassigned, [place] [facility] 1.84.114 350.1.13.10 4.2.7.2.686 [id number] [id number] [facility] 2021-10-31 14:00:00 2021-10-31 14:15:00 [facility] 1.840.114 350.1.13.10 4.2.7.2.686 [id number] [facility] 2021-10-31 14:00:00 2021-10-31 14:06:40 Outpatient R VALENTINA [facility] [id number] [facility] 2021-10-31 14:00:00 2021-10-31 14:00:00 Outpatient R VALENTINA [facility] [id number] [facility] 2021-10-31 00:00:00 2021-10-31 00:00:00 Orders Only Doctor Unassigned, [place] [facility] 1.840.114 350.1.13.10 4.2.7.2.686 [id number] [id number] [facility] 2021-10-03 00:00:00 2021-10-03 00:00:00 Refill Valentina [facility] VEL[facility] 1.840.114 350.1.13.10 4.2.7.2.686 [id number] 198 [id number] [facility] 2021-08-28 00:00:00 2021-08-28 00:00:00 Refill Valentina [facility] VEL?[facility] MED[facility] OFF[facility] BUILD[facility] 1.2.840.114 350.1.13.10 4.2.7.2.686 [id number] 198 [id number] [facility] 2021-08-05 00:00:00 2021-08-05 00:00:00 Refill Wendy [facility] 1.2.840.114 350.1.13.10 4.2.7.2.686 [id number] 198 [id number] [facility] 2021-07-09 00:00:00 2021-07-09 00:00:00 [facility] 1.2.840.114 350.1.13.10 4.2.7.2.686 [id number] [facility] 2021-07-08 00:00:00 2021-07-08 00:00:00 Refill [facility] BUILD[facility] 1.2.840.114 350.1.13.10 4.2.7.2.686 [id number] 198 [id number] [facility] 2021-07-02 00:00:00 2021-07-02 00:00:00 Refill [facility] OFF[facility] BUILD[facility] 1.2.840.114 350.1.13.10 4.2.7.2.686 [id number] 198 [id number] [facility] 2021-06-06 00:00:00 2021-06-06 00:00:00 Refill Wendy [facility] OFF[facility] BUILD[facility] 1.2.840.114 350.1.13.10 4.2.7.2.686 [id number] 198 [id number] [facility] 2021-05-06 00:00:00 2021-05-06 00:00:00 Refill Wagner [facility] 1.2.840.114 350.1.13.10 4.2.7.2.686 [id number] 198 [id number] [facility] 2021-04-18 08:30:00 2021-04-18 08:45:00 [facility] 1.2.840.114 350.1.13.10 4.2.7.2.686 [id number] [facility] 2021-04-18 08:30:00 2021-04-18 08:30:00 Outpatient Rubén MONTGOMERY ALISE [facility] [id number] [facility] 2021-04-18 08:30:00 2021-04-18 08:30:00 Outpatient Rubén MONTGOMERY [facility] [id number] [facility] 2021-04-18 08:30:00 2021-04-18 08:30:00 Outpatient ALISE WILSON [facility] [id number] [facility] 2021-04-11 09:00:00 2021-04-11 09:26:52 Outpatient ALISE WILSON [facility] [id number] [facility] 2021-04-11 08:46:35 2021-04-11 09:26:52 [facility] 1.2.840.114 350.1.13.10 4.2.7.2.686 [id number] 198 [id number] [facility] 2021-04-11 09:00:00 2021-04-11 09:00:00 Outpatient ALISE WILSON [facility] [id number] [facility] 2021-04-04 13:15:00 2021-04-04 13:31:07 Outpatient Rubén MONTGOMERY ALISE [facility] [id number] [facility] 2021-04-04 12:53:17 2021-04-04 13:31:07 Office Visit Valentina [facility] BUILD[facility] 1.2.840.114 350.1.13.10 4.2.7.2.686 [id number] [facility] 2021-04-04 13:15:00 2021-04-04 13:15:00 Outpatient R ALISE MONTGOMERY [facility] [id number] [facility] 2021-04-04 00:00:00 2021-04-04 00:00:00 Orders Only Doctor Unassigned, [place] [facility] 1.840.114 350.1.13.10 4.2.7.2.686 [id number] [facility] 2021-04-01 00:00:00 2021-04-01 00:00:00 Telephone Wagner Ndiaye [facility] MEDICAL OFFICE BUILD[facility] 1.840.114 350.1.13.10 4.2.7.2.686 [id number] 198 [id number] [facility] 2021-03-04 14:47:12 2021-03-04 15:14:54 Office Visit Wagner [facility]diaye [facility] BUILD[facility] 1.2.840.114 350.1.13.10 4.2.7.2.686 [id number] 198 [id number] [facility] 2021-03-04 14:45:00 2021-03-04 15:14:54 Outpatient R WAGNER NDIAYE [facility] [id number] [facility] 2021-02-28 00:00:00 2021-02-28 00:00:00 Telephone Wagner Ndiaye [facility] MED[facility] OFFICE BUILD[facility] 1.2.840.114 350.1.13.10 4.2.7.2.686 [id number] [facility] 2021-02-28 00:00:00 2021-02-28 00:00:00 Telephone Wagner Ndiaye [facility] VEL?[facility] 1.84114 350.1.13.10 4.2.7.2.686 [id number] 198 [id number] [facility] 2021-02-07 15:00:00 2021-02-07 15:00:00 Outpatient R DAVID ROB [facility] [id number] [facility] 2021-02-07 09:56:05 2021-02-07 10:56:05 Nurse Visit Therapy, Adc Covid Infusion David Rob [facility] 1.114 350.1.13.10 4.2.7.2.686 [id number] [facility] 2021-02-07 00:00:00 2021-02-07 00:00:00 Orders Only Doctor Unassigned, [place] [facility] 1..114 350.1.13.10 4.2.7.2.686 [id number] [id number] [facility] 2021-01-08 00:00:00 2021-01-08 00:00:00 Refill Wagner [facility]di[facility] 1..114 350.1.13.10 4.2.7.2.686 [id number] 198 [id number] [facility] 2021-01-04 00:00:00 2021-01-04 00:00:00 Refill Wagner Ndiaye [facility] Vel?[facility]ya [facility] 1.84114 350.1.13.10 4.2.7.2.686 [id number] [facility] 2020-11-29 00:00:00 2020-11-29 00:00:00 Telephone Wagner Ndiaye [facility] 1..114 350.1.13.10 4.2.7.2.686 [id number] [facility] 2020-10-09 00:00:00 2020-10-09 00:00:00 Telephone Valentina [facility] amelia Talbot 1.2.840.114 350.1.13.10 4.2.7.2.686 [id number] 198 [id number] [facility] 2020-09-27 13:45:00 2020-09-27 13:45:00 Outpatient Rubén VALENTINA [facility] [id number] [facility] 2020-09-25 09:30:00 2020-09-25 09:30:00 Outpatient Rubén VALENTINA ALISE [facility] [id number] [facility] 2020-09-11 00:00:00 2020-09-11 00:00:00 Telephone Valentina [facility] amelia Talbot 1.2.840.114 350.1.13.10 4.2.7.2.686 [id number] [facility] 2020-09-11 00:00:00 2020-09-11 00:00:00 Telephone Valentina [facility] amelia Talbot 1.2.840.114 350.1.13.10 4.2.7.2.686 [id number] 2020-08-09 09:00:23 2020-08-09 09:30:55 Office Visit Valentina [facility] amelia Maben 1.2.840.114 350.1.13.10 4.2.7.2.686 [id number] [facility] 2020-08-09 09:00:23 2020-08-09 09:30:55 Office Visit Valentina [facility] amelia Maben 1.2.840.114 350.1.13.10 4.2.7.2.686 [id number] 2020-08-09 09:15:00 2020-08-09 09:15:00 Outpatient R ALISE MONTGOMERY [facility] [id number] [facility] 2020-08-02 08:58:30 2020-08-02 09:23:28 Office Visit Valentina Alise [facility] Surgical Specialti es Maben 1.2840.114 350.1.13.10 4.2.7.2.686 [id number] [facility] 2020-08-02 09:15:00 2020-08-02 09:15:00 Outpatient R VALENTINA ALISE [facility] [id number] [facility] 2020-07-26 10:15:08 2020-07-26 10:30:08 Office Visit Valentina [facility] Surgical Specialti es Maben 1.2840.114 350.1.13.10 4.2.7.2.686 [id number] [facility] 2020-07-26 10:30:00 2020-07-26 10:30:00 Outpatient R VALENTINA ALISE [facility] [id number] [facility] 2020-07-19 00:00:00 2020-07-19 00:00:00 Orders Only Doctor Unassigned, [place] [facility] 1.2840.114 350.1.13.10 4.2.7.2.686 [id number] [facility] 2020-06-12 00:00:00 2020-06-12 00:00:00 Telephone Wagner Ndiaye [facility] Surgical Specialti es Maben 1.2840.114 350.1.13.10 4.2.7.2.686 [id number] [facility] 2020-04-10 00:00:00 2020-04-10 00:00:00 Telephone Wagner Ndiaye [facility] Surgical Specialti es Maben 1.2840.114 350.1.13.10 4.2.7.2.686 [id number] 198 [id number] [facility] 2020-02-13 00:00:00 2020-02-13 00:00:00 Telephone Wagner Ndiaye [facility] Surgical Specialti amelia Talbot 1.2.840.114 350.1.13.10 4.2.7.2.686 [id number] [facility] 2020-02-03 09:00:01 2020-02-03 09:15:01 Office Visit Valentina [facility] amelia Talbot 1.2.840.114 350.1.13.10 4.2.7.2.686 [id number] [facility] 2020-02-03 09:00:00 2020-02-03 09:00:00 Outpatient Rubén MONTGOMERY [facility] [id number] [facility] 2020-01-27 08:49:51 2020-01-27 09:20:42 Office Visit Valentina [facility] amelia Talbot 1.2.840.114 350.1.13.10 4.2.7.2.686 [id number] [facility] 2020-01-27 09:00:00 2020-01-27 09:00:00 Outpatient R VALENTINA [facility] [id number] [facility] 2020-01-24 00:00:00 2020-01-24 00:00:00 Telephone Wagner Ndiaye [facility] Surgical Specialmadeleine Talbot 1.2.840.114 350.1.13.10 4.2.7.2.686 [id number] 198 [id number] [facility] 2020-01-20 10:28:32 2020-01-20 11:24:19 Office Visit Valentina [facility] amelia Maben 1.2.840.114 350.1.13.10 4.2.7.2.686 [id number] [facility] 2020-01-20 10:45:00 2020-01-20 10:45:00 Outpatient R ALISE MONTGOMERY [facility] [id number] [facility] 2020-01-17 00:00:00 2020-01-17 00:00:00 Telephone Wagner Ndiaye [facility] Surgical Specialti amelia Talbot 1.2.840.114 350.1.13.10 4.2.7.2.686 [id number] [facility] 2020-01-17 00:00:00 2020-01-17 00:00:00 Orders Only Doctor Unassigned, [place] [facility] 1.2.840.114 350.1.13.10 4.2.7.2.686 [id number] [facility] 2020-01-11 00:00:00 2020-01-11 00:00:00 Telephone Wagner Ndiaye [facility] Surgical Specialti amelia Talbot 1.2.840.114 350.1.13.10 4.2.7.2.686 [id number] [facility] 2019-12-06 15:29:57 2019-12-06 23:59:00 Hospital Encounter Alise Montgomery [facility] Surgical Specialti amelia Talbot 1.2.840.114 350.1.13.10 4.2.7.2.686 [id number] [facility] 2019-12-06 15:00:00 2019-12-06 15:00:00 Outpatient R ALISE MONTGOMERY [facility] [id number] [facility] 2019-12-06 14:39:03 2019-12-06 14:54:03 Office Visit Alise Montgomery [facility] Surgical Specialmadeleine amelia Talbot 1.2.840.114 350.1.13.10 4.2.7.2.686 [id number] [facility] 2019-11-21 00:00:00 2019-11-21 00:00:00 Refill Wagner Ndiaye [facility] amelia Talbot 1.2.840.114 350.1.13.10 4.2.7.2.686 [id number] [facility] 2019-10-25 00:00:00 2019-10-25 00:00:00 Telephone Alise Montgomery [facility] amelia Talbot 1.2.840.114 350.1.13.10 4.2.7.2.686 [id number] [facility] 2019-09-27 00:00:00 2019-09-27 00:00:00 Refill NdiayeWagner andres [facility] Specialmadeleine Talbot 1.2.840.114 350.1.13.10 4.2.7.2.686 [id number] [facility] 2019-08-29 00:00:00 2019-08-29 00:00:00 Telephone Wagner Ndiaye [facility] 1.2.840.114 350.1.13.10 4.2.7.2.686 [id number] [facility] 2019-07-04 13:16:33 2019-08-05 11:10:18 [facility] 1.2.840.114 350.1.13.10 4.2.7.2.686 [id number] [facility] 2019-07-15 00:00:00 2019-07-15 00:00:00 Refill Valentina [facility] Specialti amelia Talbot 1.2.840.114 350.1.13.10 4.2.7.2.686 [id number] [facility] 2019-07-04 13:30:00 2019-07-04 13:30:00 Outpatient R ALISE MONTGOMERY [facility] [id number] [facility] 2019-06-27 13:15:24 2019-06-27 13:35:48 Office Visit Alise Montgomery [facility] Surgical Specialti es [place] 1.2.840.114 350.1.13.10 4.2.7.2.686 [id number] [facility] 2019-06-27 13:30:00 2019-06-27 13:30:00 Outpatient R ALISE MONTGOMERY [facility] [id number] [facility] 2019-06-21 00:00:00 2019-06-21 00:00:00 Refill Sam Wagner Dinh [facility] Surgical Specialti es [place] 1.2.840.114 350.1.13.10 4.2.7.2.686 [id number] [facility] 2019-06-20 13:18:57 2019-06-20 13:52:29 Office Visit Alise Montgomery [facility] Surgical Specialti amelia [place] 1.2.840.114 350.1.13.10 4.2.7.2.686 [id number] [facility] 2019-06-20 00:00:00 2019-06-20 00:00:00 Telephone Wagner Ndiaye [facility] Surgical Specialti amelia Talbot 1.2.840.114 350.1.13.10 4.2.7.2.686 [id number] [facility] 2019-06-14 00:00:00 2019-06-14 00:00:00 Orders Only Doctor Unassigned, [place] [facility] 1.2.840.114 350.1.13.10 4.2.7.2.686 [id number] [facility] 2019-06-03 08:00:00 2019-06-03 08:17:44 Outpatient R WAGNER NDIAYE [facility] [id number] [facility] 2019-06-03 07:58:56 2019-06-03 08:17:44 Office Visit Wagner Ndiaye [facility] Surgical Special amelia Talbot 1.2.840.114 350.1.13.10 4.2.7.2.686 [id number] [facility] 2019-05-23 00:00:00 2019-05-23 00:00:00 Orders Only Doctor Unassigned, [place] [facility] 1.2.840.114 350.1.13.10 4.2.7.2.686 [id number] [facility] 2019-05-17 00:00:00 2019-05-17 00:00:00 Orders Only Doctor Unassigned, [place] [facility] 1.2.840.114 350.1.13.10 4.2.7.2.686 [id number] [facility] 2018-12-16 00:00:00 2018-12-16 00:00:00 [facility] 1.2.840.114 350.1.13.10 4.2.7.2.686 [id number] [facility] 2018-12-07 13:44:41 2018-12-07 14:25:18 Office Visit [facility] 1.2.840.114 350.1.13.10 4.2.7.2.686 [id number] [facility] 2018-11-30 15:08:02 2018-11-30 15:48:29 Office Visit Valentina [facility] 1.2.840.114 350.1.13.10 4.2.7.2.686 [id number] [facility]
--- NOTE | 2023-04-25 10:06 | RAD REPORT ---
EXAM DESCRIPTION: RAD - Knee Right 3 View - 04/25/2023 9:14 am CLINICAL HISTORY: Right knee pain status post injury FINDINGS: Moderate joint effusion Moderate osteoarthritis. Mild cortical irregularity lateral tibial plateau equivocal for fracture. MRI would be helpful for fu rther evaluation
--- NOTE | 2023-04-25 10:09 | RAD REPORT ---
EXAM DESCRIPTION: CTAkiko Right Wo Cont04/25/2023 9:42 am CLINICAL HISTORY: Right knee pain status post injury COMPARISON: 04/25/2023 x-ray TECHNIQUE: Computed axial tomography of the right knee was obtained with coronal and sagittal recons truction. All CT scans are performed using dose optimization technique as appropriate and may include automated exposure control or mA/KV adjustment according to patient size. FINDINGS: Moderate joint effusion Mild depression lateral tibial plateau. A fracture line is not seen. No dislocation Moderate osteoarthritis involves the knee Vascular calcifications are present IMPRESSION: Moderate Mild depression lateral tibial plateau without visualization of a fracture line. This probably is chr onic. However, if the patient continues to have symptoms to suggest acuity then MRI would be recommen ded
--- NOTE | 2023-04-25 10:23 | ER ---
Nurse's Notes [facility] Name: Brayan Carrion Age: 72 yrs Sex: Male : 1950 Arrival Date: 04/25/2023 Time: 08:00 Bed 6 Private MD: Diagnosis: Displaced fracture of right tibial tuberosity, initial encounter for closed fracture;Effusion, right knee;Fall on same level, unspecified Presentation: 04/25 08:10 Chief complaint: Patient states: he fell 04/23/23 when doing the yard, ap3 injuring his right knee. patient complains of pain being 8/10 on the pain scale at this time. Coronavirus screen: At this time, the client does not indicate any symptoms associated with coronavirus-19. Ebola Screen: No symptoms or risks identified at this time. Initial Sepsis Screen: Does the patient meet any 2 criteria? No. Patient's initial sepsis screen is negative. Does the patient have a suspected source of infection? No. Patient's initial sepsis screen is negative. Risk Assessment: Do you want to hurt yourself or someone else? Patient reports no desire to harm self or others. Onset of symptoms was April 23, 2023. 08:10 Method Of Arrival: Wheelchair ap3 08:10 Acuity: CLARE 4 ap3 Triage Assessment: 08:11 General: Appears in no apparent distress. Behavior is calm, cooperative, appropriate ap3 for age. Pain: Complains of pain in right knee Pain currently is 8 out of 10 on a pain scale. Pain began 2-3 days ago. Neuro: Level of Consciousness is awake, alert, obeys commands, Oriented to person, place, time, situation. Cardiovascular: Patient's skin is warm and dry. Respiratory: Airway is patent Respiratory effort is even, unlabored, Respiratory pattern is regular, symmetrical. Musculoskeletal: Reports pain in right knee. 10:35 Injury Description: pain to right knee. jl7 Historical: - Allergies: 08:11 No Known Allergies; ap3 - PMHx: 08:11 CAD; Chronic pain; Diabetes - IDDM; Hyperlipidemia; Hypertension; neuropathy; ap3 - Immunization history:: Client reports receiving the 2nd dose of the Covid vaccine, Flu vaccine is up to date. - Social history:: Smoking status: Patient denies any tobacco usage or history of. - Family history:: not pertinent. Screenin:12 [facility] ED Fall Risk Assessment (Adult) History of falling in the last 3 months, ap3 including since admission Yes- single mechanical fall (1 pt) Confusion or Disorientation No (0 pts). Abuse screen: Denies threats or abuse. Nutritional screening: No deficits noted. Tuberculosis screening: No symptoms or risk factors identified. Assessment: 08:30 General: Appears in no apparent distress. Behavior is calm, cooperative. Pain: Pain hb currently is 8 out of 10 on a pain scale. Neuro: Level of Consciousness is awake, alert, obeys commands, Oriented to person, place, time, situation. Cardiovascular: Patient's skin is warm and dry. Respiratory: Respiratory effort is even, unlabored, Respiratory pattern is regular, symmetrical. GI: No signs and/or symptoms were reported involving the gastrointestinal system. : No signs and/or symptoms were reported regarding the genitourinary system. EENT: No signs and/or symptoms were reported regarding the EENT system. Derm: No signs and/or symptoms reported regarding the dermatologic system. Musculoskeletal: Reports right knee pain. 09:45 Reassessment: Patient appears in no apparent distress at this time. Patient and/or hb family updated on plan of care and expected duration. Pain level reassessed. Patient is alert, oriented x 3, equal unlabored respirations, skin warm/dry/pink. 10:35 Reassessment: Dr. Santana at bedside discussing results and POC. jl7 Vital Signs: 08:10 BP 119 / 64; Pulse 91; Resp 17; Temp 97.4; Pulse Ox 94% ; Weight 136.08 kg; Height 6 ap3 ft. 1 in. ; Pain 8/10; 11:05 Pulse 89; Resp 15; Pulse Ox 94% ; jl7 08:10 Body Mass Index 39.58 (136.08 kg, 185.42 cm) ap3 08:10 Pain Scale: Adult ap3 ED Course: 08:04 Patient arrived in ED. im 08:05 Turner Santana MD is Attending Physician. [place] 08:11 Triage completed. ap3 08:12 Arm band placed on right wrist. ap3 08:30 Patient has correct armband on for positive identification. Provided Education on: hb tests, result times. 09:16 Knee Right 3 View XRAY In Process Unspecified. EDMS 09:44 Knee Right Wo Cont In Process Unspecified. EDMS 10:14 Carolyn Cloud, RN is Primary Nurse. jl7 10:15 No provider procedures requiring assistance completed. Patient did not have IV access hb during this emergency room visit. 10:22 Rafiq Lorenzo MD is Referral Physician. [facility] 10:27 Knee immobilizer applied on right knee. jl7 Administered Medications: 08:36 Drug: [place] PO 10 mg-325 mg 1 tabs PO once Route: PO; hb 09:15 Follow up: Response: No adverse reaction hb Medication: 08:30 VIS not applicable for this client. hb Outcome: 10:22 Discharge ordered by . [facility] 11:05 Discharged to home via wheelchair, with significant other, lakeisha 11:05 Condition: stable 11:05 Discharge instructions given to patient, family, Instructed on discharge instructions, follow up and referral plans. medication usage, Demonstrated understanding of instructions, follow-up care, medications, Prescriptions given X 2, 11:07 Patient left the ED. jl7 Signatures: Dispatcher [employer] [facility] Turner Santana MD MD cha Baxter, Heather, RN RN Carolyn Cloud, RN RN jl7 Rosario Bedolla RN RN juan [email or web address] Paz Nava
--- NOTE | 2023-04-25 10:23 | EDPHYS ---
Physician Documentation [facility] Name: Brayan Carrion Age: 72 yrs Sex: Male : 1950 Arrival Date: 04/25/2023 Time: 08:00 Bed 6 Private MD: VAIBHAV Physician Turner Santana HPI: 04/25 09:21 This 72 yrs old Male presents to ER via Wheelchair with complaints of Knee char[place] Injury - right from fall. 09:21 The patient presents with decreased range of motion, pain, that is acute. The [place] complaints affect the lateral aspect of right knee, medial aspect of right knee and right knee. Context: The problem was sustained outdoors, resulted from the patient falling, the patient is not able to bear weight, the patient is not able to ambulate. Onset: The symptoms/episode began/occurred 1 day(s) ago. Modifying factors: The symptoms are alleviated by nothing. remaining still, the symptoms are aggravated by movement, weight bearing, bending knee. Associated signs and symptoms: The patient has no apparent associated signs or symptoms. Severity of symptoms: At their worst the symptoms were moderate, in the emergency department the symptoms are unchanged. The patient has not experienced similar symptoms in the past. Historical: - Allergies: 08:11 No Known Allergies; ap3 - PMHx: 08:11 CAD; Chronic pain; Diabetes - IDDM; Hyperlipidemia; Hypertension; neuropathy; ap3 - Immunization history:: Client reports receiving the 2nd dose of the Covid vaccine, Flu vaccine is up to date. - Social history:: Smoking status: Patient denies any tobacco usage or history of. - Family history:: not pertinent. ROS: 09:21 Constitutional: Negative for fever, chills, and weight loss, Eyes: Negative for injury, [place] pain, redness, and discharge, ENT: Negative for injury, pain, and discharge, Neck: Negative for injury, pain, and swelling, Cardiovascular: Negative for chest pain, palpitations, and edema, Respiratory: Negative for shortness of breath, cough, wheezing, and pleuritic chest pain, Abdomen/GI: Negative for abdominal pain, nausea, vomiting, diarrhea, and constipation, Back: Negative for injury and pain, : Negative for injury, bleeding, discharge, and swelling, Skin: Negative for injury, rash, and discoloration, Neuro: Negative for headache, weakness, numbness, tingling, and seizure, Psych: Negative for depression, anxiety, suicide ideation, homicidal ideation, and hallucinations, Allergy/Immunology: Negative for hives, rash, and allergies, Endocrine: Negative for neck swelling, polydipsia, polyuria, polyphagia, and marked weight changes, Hematologic/Lymphatic: Negative for swollen nodes, abnormal bleeding, and unusual bruising, 09:21 MS/extremity: Positive for decreased range of motion, pain, swelling, tenderness, of the lateral aspect of right knee, medial aspect of right knee and right knee, Exam: 09:21 Constitutional: This is a well developed, well nourished patient who is awake, alert, charlotte and in no acute distress. Head/Face: Normocephalic, atraumatic. Eyes: Pupils equal round and reactive to light, extra-ocular motions intact. Lids and lashes normal. Conjunctiva and sclera are non-icteric and not injected. Cornea within normal limits. Periorbital areas with no swelling, redness, or edema. ENT: Nares patent. No nasal discharge, no septal abnormalities noted. Tympanic membranes are normal and external auditory canals are clear. Oropharynx with no redness, swelling, or masses, exudates, or evidence of obstruction, uvula midline. Mucous membranes moist. Neck: Trachea midline, no thyromegaly or masses palpated, and no cervical lymphadenopathy. Supple, full range of motion without nuchal rigidity, or vertebral point tenderness. No Meningismus. Chest/axilla: Normal chest wall appearance and motion. Nontender with no deformity. No lesions are appreciated. Cardiovascular: Regular rate and rhythm with a normal S1 and S2. No gallops, murmurs, or rubs. Normal PMI, no JVD. No pulse deficits. Respiratory: Lungs have equal breath sounds bilaterally, clear to auscultation and percussion. No rales, rhonchi or wheezes noted. No increased work of breathing, no retractions or nasal flaring. Abdomen/GI: Soft, non-tender, with normal bowel sounds. No distension or tympany. No guarding or rebound. No evidence of tenderness throughout. Back: No spinal tenderness. No costovertebral tenderness. Full range of motion. Male : Normal genitalia with no discharge or lesions. Skin: Warm, dry with normal turgor. Normal color with no rashes, no lesions, and no evidence of cellulitis. Neuro: Awake and alert, GCS 15, oriented to person, place, time, and situation. Cranial nerves II-XII grossly intact. Motor strength 5/5 in all extremities. Sensory grossly intact. Cerebellar exam normal. Normal gait. Psych: Awake, alert, with orientation to person, place and time. Behavior, mood, and affect are within normal limits. 09:21 Musculoskeletal/extremity: ROM: limited active range of motion, limited passive range of motion, limited active range of motion due to pain, limited passive range of motion due to pain, Circulation is intact in all extremities. Sensation intact. Compartment Syndrome exam of affected extremity: is normal. Weight bearing: is unable to bear weight, DVT Exam: negative Homans' sign noted on exam, no appreciated bluish discoloration, no erythema, no increased warmth, pain, swelling, tenderness, Vital Signs: 08:10 BP 119 / 64; Pulse 91; Resp 17; Temp 97.4; Pulse Ox 94% ; Weight 136.08 kg; Height 6 ap3 ft. 1 in. ; Pain 8/10; 11:05 Pulse 89; Resp 15; Pulse Ox 94% ; jl7 08:10 Body Mass Index 39.58 (136.08 kg, 185.42 cm) ap3 08:10 Pain Scale: Adult ap3 MDM: 08:05 Patient medically screened. [facility] 09:23 Differential diagnosis: closed fracture, contusion. Data reviewed: vital signs, nurses [facility] notes, radiologic studies, plain films. Consideration of Admission/Observation Escalation of care including admission/observation considered. I considered the following discharge prescriptions or medication management in the emergency department Medications were administered in the Emergency Department. See MAR. Independent interpretation of the following test(s) in the Emergency Department X-Ray: My interpretation is FX. Test considered but Not performed: X-ray: . MRI: NO MRI KNEE. Historians other than the Patient: Spouse/Significant Other: WELL INFORMED. Care significantly affected by the following chronic conditions: Diabetes, Hypertension, Obesity. 04/25 08:22 Order name: Knee Right 3 View XRAY; Complete Time: 11:06 [place] 04/25 09:28 Order name: Knee Right Wo Cont; Complete Time: 11:06 EDMS 04/25 08:22 Order name: Ice pack; Complete Time: 08:29 [facility] 04/25 09:21 Order name: Knee Immobilizer; Complete Time: 10:16 [place] Administered Medications: 08:36 Drug: [place] PO 10 mg-325 mg 1 tabs PO once Route: PO; hb 09:15 Follow up: Response: No adverse reaction hb Disposition Summary: 04/25/23 10:22 Discharge Ordered Notes: Location: Home [place] Problem: new [place] Symptoms: have improved [place] Condition: Stable [place] Diagnosis - Displaced fracture of right tibial tuberosity, initial encounter for closed fracturecha - Effusion, right knee char[place] - Fall on same level, unspecified [place]lotte Followup: [place] - With: Private Physician - When: 2 - 3 days - Reason: Recheck today's complaints, Continuance of care, Re-evaluation by your physician Followup: [place] - With: Rafiq Lorenzo MD - When: 2 - 3 days - Reason: Recheck today's complaints, Continuance of care, Re-evaluation by your physician Discharge Instructions: - Discharge Summary Sheet charlotte - Knee Effusion [place] - Tibial Fracture, Adult charlotte - Nondisplaced Tibial Plateau Fracture [place] - Knee Effusion, [id number] [place] - Tibial Fracture, Adult, [id number] [facility] Forms: - Medication Reconciliation Form [facility] - Thank You Letter [facility] - Antibiotic Education [place] - Prescription Opioid Use [place] - Patient Portal Instructions [facility] - Leadership Thank You Letter [facility] Prescriptions: - diclofenac sodium 25 mg Oral tablet, delayed release (enteric coated) - take 1 tablet ORAL route every 8 hours; 21 tablet; Refills: 0, Product [facility] Selection Permitted - Valium 5 mg Oral Tablet - take 1 tablet ORAL route every 8 hours As needed; 20 tablet; Refills: 0, [facility] Product Selection Permitted Signatures: Dispatcher [employer] Turner Aguirre MD MD cha Baxter, Heather RN RN Rosario Dominguez RN RN ap3 Corrections: (The following items were deleted from the chart) 09:26 09:25 Pelvis Wo [id number].RAD.BRZ ordered. BOBBY ROSALES
[2023-04-25 11:14] VITALS: BP 119/64; TEMP 97.4; O2SAT 94
== END ==
LOC: ER 08:00
DX: S82.151A Displaced fracture of right tibial tuberosity, initial encounter for closed fracture (principal); M25.461 Effusion, right knee
CPT/HCPCS: 73700; 99283